=== PATIENT | female | born 1960 | race Caucasian/White ===

== ENCOUNTER 2022-08-25 05:13 | Inpatient (IN) | payer MEDICARE, OTHER ==
[2022-08-25] MEDS ORDERED: ALBUTEROL NEBULIZED 2.5 MG/3 ML INHALATION STA (05:40)
[2022-08-25 05:53] LABS: Basophils % (A) 0 %; Eosinophils % (A) 0 %; HCT 38.2 % (34.0-46.0); HGB 12.4 gm/dL (11.4-16.0); Lymphocytes # (A) 1.9 k/uL (1.0-4.8); Lymphocytes % (A) 23 %; MCH 27.3 pg (25.0-35.0); MCHC 32.4 g/dL (31.0-37.0); MCV 84.4 fL (80.0-100.0); Mean Platelet Volume 7.6; Monocytes # (A) 0.5 k/uL (0-1.0); Monocytes % (A) 7 %; Neutrophils # (A) 5.5 k/uL (1.3-7.7); Neutrophils % (A) 67 %; Platelet Count 181 k/uL (150-450); RBC 4.53 m/uL (3.80-5.40); RDW 15.6 % (11.5-15.5); WBC 8.3 k/uL (3.8-10.6)
[2022-08-25] MEDS ORDERED: ACETAMINOPHEN SUPPOSITORY 650 MG SUPP RECTAL STA (05:53)
[2022-08-25 06:09] LABS: Partial Thromboplastin Time 23.2 sec (22.0-30.0)
[2022-08-25 06:15] LABS: ALT 22 U/L (4-34); AST 26 U/L (14-36); African American GFR (CKD) >90 (>60 ml/min/1.73 sqM); Albumin 4.1 g/dL (3.5-5.0); Alkaline Phosphatase 82 U/L (38-126); Anion Gap 11 mmol/L; Blood Urea Nitrogen 15 mg/dL (7-17); Calcium 8.9 mg/dL (8.4-10.2); Carbon Dioxide 27 mmol/L (22-30); Chloride 97 mmol/L (98-107); Glucose 91 mg/dL (74-99); Non-African American GFR(CKD) >90 (>60 ml/min/1.73 sqM); Potassium 4.5 mmol/L (3.5-5.1); Sodium 135 mmol/L (137-145); Total Bilirubin 0.4 mg/dL (0.2-1.3); Total Protein 7.2 g/dL (6.3-8.2)
[2022-08-25 06:26] LABS: Appearance,Urine Clear (Clear); Bacteria,Urine Rare /hpf; Bilirubin,Urine Negative (Negative); Blood,Urine Small (Negative); Color,Urine Yellow; Glucose,Urine (UA) Negative (Negative); Ketones,Urine Negative (Negative); Leukocyte Esterase,Urine Small (Negative); Mucus,Urine Rare /hpf; Nitrite,Urine Negative (Negative); PH, Urine 7.5 (5.0-8.0); Protein,Urine Trace (Negative); RBC,Urine 8 /hpf (0-5); Specific Gravity,Urine 1.015 (1.001-1.035); Squamous Epithelial Cell,Urine <1 /hpf (0-4); WBC,Urine 16 /hpf (0-5)
[2022-08-25] MEDS ORDERED: SODIUM CHLORIDE 0.9% 1,000 ML IV ONE ×2 (06:28→18:11)
[2022-08-25] MEDS ORDERED: SODIUM CHLORIDE 0.9% 1,000 ML IV STA (06:28)
--- NOTE | 2022-08-25 06:55 | ED ---
SOB HPI - General Source: EMS Mode of arrival: EMS Limitations: altered mental status - History of Present Illness MD Complaint: shortness of breath, cough -: days(s) <Jorge Uribe - Last Filed: 08/25/22 07:42> <Alec Moffett - Last Filed: 08/25/22 08:05> - General Chief Complaint: Shortness of Breath Stated Complaint: Difficulty Breathing Time Seen by Provider: 08/25/22 05:39 - History of Present Illness Initial Comments: this patient is 61-year-old woman resident of [facility], who presents to have evaluation for shortness of breath and fever. the patient started having symptoms days ago. the patient had been seen yesterday at [facility] for shortness of breath, was given steroid, and went home. She has had worsening of symptoms over the course of the night and into this morning. The patient is not able to give any history due to developmental delay. (Jorge Uribe) - Related Data Allergies Allergy/AdvReac Type Severity Reaction Status Date / Time clavulanic acid Allergy Unknown Unknown Verified 08/25/22 05:25 [From Augmentin] Corticosteroids Allergy Unknown Unknown Verified 08/25/22 05:26 (Glucocorticoids) guaifenesin Allergy Unknown Unknown Verified 08/25/22 05:28 amoxicillin [From Augmentin] Allergy Unknown Verified 08/25/22 05:24 azithromycin Allergy Unknown Verified 08/25/22 05:25 ciprofloxacin [From Ciprodex] Allergy Unknown Verified 08/25/22 05:29 dexamethasone [From Ciprodex] Allergy Unknown Verified 08/25/22 05:29 dextromethorphan Allergy Unknown Verified 08/25/22 05:27 divalproex sodium Allergy Unknown Verified 08/25/22 05:26 [From Depakote] ibuprofen [From Motrin] Allergy Unknown Verified 08/25/22 05:28 Review of Systems ROS Other: All systems not noted in ROS Statement are negative. Limitations: ROS unobtainable due to patients medical condition Respiratory: Reports: cough, dyspnea <Jorge Uribe - Last Filed: 08/25/22 07:42> ROS Other: All systems not noted in ROS Statement are negative. <Alec Moffett - Last Filed: 08/25/22 08:05> ROS Statement: Those systems with pertinent positive or pertinent negative responses have been documented in the HPI. Past Medical History History of Any Multi-Drug Resistant Organisms: None Reported Smoking Status: Never smoker Past Alcohol Use History: None Reported Past Drug Use History: None Reported <Jorge Uribe - Last Filed: 08/25/22 07:42> General Exam Limitations: altered mental status General appearance: alert Head exam: Present: atraumatic, normocephalic Eye exam: Present: normal appearance ENT exam: Present: mucous membranes dry Neck exam: Present: normal inspection, full ROM Respiratory exam: Present: respiratory distress, wheezes, rhonchi. Absent: rales, stridor, accessory muscle use, decreased breath sounds, prolonged exp iratory Cardiovascular Exam: Present: normal rhythm, tachycardia, normal heart sounds. Absent: systolic murmur, diastolic murmur, rubs, gallop GI/Abdominal exam: Present: soft. Absent: distended, tenderness, guarding, rebound, rigid, mass Extremities exam: Present: normal inspection, normal capillary refill. Absent: pedal edema, calf tenderness Back exam: Present: normal inspection. Absent: CVA tenderness (R), CVA tenderness (L) Neurological exam: Present: alert Skin exam: Present: warm, dry, intact, normal color. Absent: rash <Jorge Uribe - Last Filed: 08/25/22 07:42> Course <Alec Moffett - Last Filed: 08/25/22 08:05> Vital Signs 08/25/22 08/25/22 08/25/22 05:15 05:52 06:01 Temperature 103.2 F H Pulse Rate 103 H 101 H 100 Respiratory 28 H Rate Blood Pressure 111/80 O2 Sat by Pulse 97 Oximetry - Reevaluation(s) Reevaluation #1: 08/25/22 08:05 Patient does qualify for sepsis criteria diagnosed at 8 AM. Patient has COPD. Blood culture and lactic acid and IV antibiotics arty been ordered. Admission orders written. (Alec Moffett) Medical Decision Making - Lab Data Result diagrams: 08/25/22 05:43 08/25/22 05:42 - EKG Data -: EKG Interpreted by Ia EKG shows normal: sinus rhythm, axis (normal), intervals (normal), QRS complexes (normal) Rate: tachycardia Interpretation: nonspecific ST-T wave changes (rate 105 bpm) <Jorge Uribe - Last Filed: 08/25/22 07:42> - Lab Data Result diagrams: 08/25/22 05:43 08/25/22 05:42 <Alec Moffett - Last Filed: 08/25/22 08:05> - Medical Decision Making Was pt. sent in by a medical professional or institution (, [facility], S[employer]LE [employer]CH[employer], urgent care, hospital, or jail...) When possible be specific @ -Patient sent from [facility] Did you speak to anyone other than the patient for history (EMS, parent, family, police, friend...)? What history was obtained from this source @ -Dermatology Physician is present to help provide history including history of COPD Did you review nursing and triage notes (agree or disagree)? Why? @ -I reviewed and agree with nursing and triage notes Were old charts reviewed (outside hosp., previous admission, EMS record, old EKG, old radiological studies, urgent care reports/EKG's, jail records)? Report findings @ -No old charts were reviewed Differential Diagnosis (chest pain, altered mental status, abdominal pain women, abdominal pain men, vaginal bleeding, weakness, fever, dyspnea, syncope, headache, dizziness, GI bleed, back pain, seizure, CVA, palpatations, mental health)? @ -Differential Dyspnea: Coronary syndrome, arrhythmia, tamponade, asthma, COPD, pulmonary embolism, pneumonia, pneumothorax, pulmonary effusion, anaphylaxis, diabetic ketoacidosis, flailed chest, pulmonary contusion, diaphragmatic rupture, anemia, neuromuscular, this is not meant to be an all-inclusive list. EKG interpreted by me (3pts min.). @ -As above X-rays interpreted by me (1pt min.). @ -Chest x-ray shows no acute process CT interpreted by me (1pt min.). @ -None done U/S interpreted by me (1pt. min.). @ -None done What testing was considered but not performed or refused? (CT, X-rays, U/S, labs)? Why? @ -D-dimer has been added What meds were considered but not given or refused? Why? @ -None Did you discuss the management of the patient with other professionals (professionals i.e. , [facility], S[employer]LE MECH[employer]IC, lab, RT, psych nurse, social security benefits interviewer, sprinkler worker, teacher, commanding officer homicide squad, case advocate)? Give summary @ -Case discussed with practitioner Deysi, who will admit, rule out Maury, who admits for Dr. Blandon. Was smoking cessation discussed for >3mins.? @ -No Was critical care preformed (if so, how long)? @ -No Were there social determinants of health that impacted care today? How? (Homelessness, low income, unemployed, alcoholism, drug addiction, transportation, low edu. Level, literacy, decrease access to med. care, fdc, rehab)? @ -No Was there de-escalation of care discussed even if they declined (Discuss DNR or withdrawal of care, Hospice)? DNR status @ -No What co-morbidities impacted this encounter? (DM, HTN, Smoking, COPD, CAD, Cance r, CVA, ARF, Chemo, Hep., AIDS, mental health diagnosis, sleep apnea, morbid obesity)? @ -COPD history Was patient admitted / discharged? Hospital course, mention meds given and route, prescriptions, significant lab abnormalities, going to OR and other pertinent info. @ -Patient reevaluated by myself, Dr. Moffett. 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 Patient is resting comfortably in bed. Heart rate 98. Patient was placed on monitor to monitor for tachycardia. Patient still has wheezing and rhonchi. Patient will be admitted with pulmonary consult. IV antibiotics have arty been started Undiagnosed new problem with uncertain prognosis? @ -No Drug Therapy requiring intensive monitoring for toxicity (Heparin, Nitro, Insulin, Cardizem)? @ -No Were any procedures done? @ -No Diagnosis/symptom? @ -Acute COPD Acute, or Chronic, or Acute on Chronic? @ -Acute Uncomplicated (without systemic symptoms) or Complicated (systemic symptoms)? @ -default Side effects of treatment? @ -No Exacerbation, Progression, or Severe Exacerbation? @ -No Poses a threat to life or bodily function? How? (Chest pain, [place], [place], pneumonia, PE, COPD, DKA, ARF, appy, cholecystitis, CVA, Diverticulitis, Homicidal, Suicidal, threat to staff... and all critical care pts) @ -No (Alec Moffett) - Lab Data Lab Results 08/25/22 08/25/22 08/25/22 Range/Units 05:42 05:42 05:42 WBC (3.8-10.6) k/uL RBC (3.80-5.40) m/uL Hgb (11.4-16.0) gm/dL Hct (34.0-46.0) % MCV (80.0-100.0) fL MCH (25.0-35.0) pg MCHC (31.0-37.0) g/dL RDW (11.5-15.5) % Plt Count (150-450) k/uL MPV Neutrophils % % Lymphocytes % % Monocytes % % Eosinophils % % Basophils % % Neutrophils # (1.3-7.7) k/uL Lymphocytes # (1.0-4.8) k/uL Monocytes # (0-1.0) k/uL Eosinophils # (0-0.7) k/uL Basophils # (0-0.2) k/uL PT (9.0-12.0) sec INR (<1.2) APTT (22.0-30.0) sec Sodium 135 L (137-145) mmol/L Potassium 4.5 (3.5-5.1) mmol/L Chloride 97 L (98-107) mmol/L Carbon Dioxide 27 (22-30) mmol/L Anion Gap 11 mmol/L BUN 15 (7-17) mg/dL Creatinine 0.59 (0.52-1.04) mg/dL Est GFR (CKD-EPI)AfAm >90 (>60 ml/min/1.73 sqM) Est GFR (CKD-EPI)NonAf >90 (>60 ml/min/1.73 sqM) Glucose 91 (74-99) mg/dL Plasma Lactic Acid Josh 1.8 (0.7-2.0) mmol/L Calcium 8.9 (8.4-10.2) mg/dL Total Bilirubin 0.4 (0.2-1.3) mg/dL AST 26 (14-36) U/L ALT 22 (4-34) U/L Alkaline Phosphatase 82 (38-126) U/L Troponin I <0.012 (0.000-0.034) ng/mL Total Protein 7.2 (6.3-8.2) g/dL Albumin 4.1 (3.5-5.0) g/dL Urine Color Urine Appearance (Clear) Urine pH (5.0-8.0) Ur Specific [place] (1.001-1.035) Urine Protein (Negative) Urine Glucose (UA) (Negative) Urine Ketones (Negative) Urine Blood (Negative) Urine Nitrite (Negative) Urine Bilirubin (Negative) Urine Urobilinogen (<2.0) mg/dL Ur Leukocyte Esterase (Negative) Urine RBC (0-5) /hpf Urine WBC (0-5) /hpf Ur Squamous Epith Cells (0-4) /hpf Urine Bacteria (None) /hpf Urine Mucus (None) /hpf Influenza Type A (PCR) (Not Detectd) Influenza Type B (PCR) (Not Detectd) RSV (PCR) (Not Detectd) SARS-CoV-2 (PCR) (Not Detectd) 08/25/22 08/25/22 08/25/22 Range/Units 05:43 05:43 05:43 WBC 8.3 (3.8-10.6) k/uL RBC 4.53 (3.80-5.40) m/uL Hgb 12.4 (11.4-16.0) gm/dL Hct 38.2 (34.0-46.0) % MCV 84.4 (80.0-100.0) fL MCH 27.3 (25.0-35.0) pg MCHC 32.4 (31.0-37.0) g/dL RDW 15.6 H (11.5-15.5) % Plt Count 181 (150-450) k/uL MPV 7.6 Neutrophils % 67 % Lymphocytes % 23 % Monocytes % 7 % Eosinophils % 0 % Basophils % 0 % Neutrophils # 5.5 (1.3-7.7) k/uL Lymphocytes # 1.9 (1.0-4.8) k/uL Monocytes # 0.5 (0-1.0) k/uL Eosinophils # 0.0 (0-0.7) k/uL Basophils # 0.0 (0-0.2) k/uL PT 11.0 (9.0-12.0) sec INR 1.0 (<1.2) APTT 23.2 (22.0-30.0) sec Sodium (137-145) mmol/L Potassium (3.5-5.1) mmol/L Chloride (98-107) mmol/L Carbon Dioxide (22-30) mmol/L Anion Gap mmol/L BUN (7-17) mg/dL Creatinine (0.52-1.04) mg/dL Est GFR (CKD-EPI)AfAm (>60 ml/min/1.73 sqM) Est GFR (CKD-EPI)NonAf (>60 ml/min/1.73 sqM) Glucose (74-99) mg/dL Plasma Lactic Acid Josh (0.7-2.0) mmol/L Calcium (8.4-10.2) mg/dL Total Bilirubin (0.2-1.3) mg/dL AST (14-36) U/L ALT (4-34) U/L Alkaline Phosphatase (38-126) U/L Troponin I (0.000-0.034) ng/mL Total Protein (6.3-8.2) g/dL Albumin (3.5-5.0) g/dL Urine Color Urine Appearance (Clear) Urine pH (5.0-8.0) Ur Specific [place] (1.001-1.035) Urine Protein (Negative) Urine Glucose (UA) (Negative) Urine Ketones (Negative) Urine Blood (Negative) Urine Nitrite (Negative) Urine Bilirubin (Negative) Urine Urobilinogen (<2.0) mg/dL Ur Leukocyte Esterase (Negative) Urine RBC (0-5) /hpf Urine WBC (0-5) /hpf Ur Squamous Epith Cells (0-4) /hpf Urine Bacteria (None) /hpf Urine Mucus (None) /hpf Influenza Type A (PCR) Not Detected (Not Detectd) Influenza Type B (PCR) Not Detected (Not Detectd) RSV (PCR) Not Detected (Not Detectd) SARS-CoV-2 (PCR) Not Detected (Not Detectd) 08/25/22 Range/Units 06:11 WBC (3.8-10.6) k/uL RBC (3.80-5.40) m/uL Hgb (11.4-16.0) gm/dL Hct (34.0-46.0) % MCV (80.0-100.0) fL MCH (25.0-35.0) pg MCHC (31.0-37.0) g/dL RDW (11.5-15.5) % Plt Count (150-450) k/uL MPV Neutrophils % % Lymphocytes % % Monocytes % % Eosinophils % % Basophils % % Neutrophils # (1.3-7.7) k/uL Lymphocytes # (1.0-4.8) k/uL Monocytes # (0-1.0) k/uL Eosinophils # (0-0.7) k/uL Basophils # (0-0.2) k/uL PT (9.0-12.0) sec INR (<1.2) APTT (22.0-30.0) sec Sodium (137-145) mmol/L Potassium (3.5-5.1) mmol/L Chloride (98-107) mmol/L Carbon Dioxide (22-30) mmol/L Anion Gap mmol/L BUN (7-17) mg/dL Creatinine (0.52-1.04) mg/dL Est GFR (CKD-EPI)AfAm (>60 ml/min/1.73 sqM) Est GFR (CKD-EPI)NonAf (>60 ml/min/1.73 sqM) Glucose (74-99) mg/dL Plasma Lactic Acid Josh (0.7-2.0) mmol/L Calcium (8.4-10.2) mg/dL Total Bilirubin (0.2-1.3) mg/dL AST (14-36) U/L ALT (4-34) U/L Alkaline Phosphatase (38-126) U/L Troponin I (0.000-0.034) ng/mL Total Protein (6.3-8.2) g/dL Albumin (3.5-5.0) g/dL Urine Color Yellow Urine Appearance Clear (Clear) Urine pH 7.5 (5.0-8.0) Ur Specific [place] 1.015 (1.001-1.035) Urine Protein Trace H (Negative) Urine Glucose (UA) Negative (Negative) Urine Ketones Negative (Negative) Urine Blood Small H (Negative) Urine Nitrite Negative (Negative) Urine Bilirubin Negative (Negative) Urine Urobilinogen 2.0 (<2.0) mg/dL Ur Leukocyte Esterase Small H (Negative) Urine RBC 8 H (0-5) /hpf Urine WBC 16 H (0-5) /hpf Ur Squamous Epith Cells <1 (0-4) /hpf Urine Bacteria Rare H (None) /hpf Urine Mucus Rare H (None) /hpf Influenza Type A (PCR) (Not Detectd) Influenza Type B (PCR) (Not Detectd) RSV (PCR) (Not Detectd) SARS-CoV-2 (PCR) (Not Detectd) Critical Care Time Critical Care Time: Yes Total Critical Care Time: 31 <Alec Moffett - Last Filed: 08/25/22 08:05> Disposition <Jorge Uribe - Last Filed: 08/25/22 07:42> Is patient prescribed a controlled substance at d/c from ED?: No Time of Disposition: 08:05 <Alec Moffett - Last Filed: 08/25/22 08:05> Clinical Impression: Sepsis, Acute exacerbation of chronic obstructive pulmonary disease Disposition: ADMITTED IP TO THIS HOSP Referrals: Prince Blandon MD [Primary Care Provider] - 1-2 days
--- NOTE | 2022-08-25 07:49 | XR ---
EXAMINATION TYPE: XR chest 1V portable DATE OF EXAM: 08/25/2022 6:01 AM COMPARISON: None TECHNIQUE: XR chest 1V portable Portable AP radiograph of the chest. CLINICAL INDICATION:Female, 61 years old with history of difficulty breathing; FINDINGS: Patient is rotated which limits evaluation. Lungs/Pleura: There is no evidence of pleural effusion, focal consolidation, or pneumothorax. Pulmonary vascularity: Unremarkable. Heart/mediastinum: Cardiomediastinal silhouette is unremarkable. Musculoskeletal: No acute osseous pathology. IMPRESSION: No acute cardiopulmonary disease/process.
[2022-08-25] MEDS ORDERED: PNEUMONIA PROTOCOL UTILIZED 1 EACH MISC PO PRN (08:06)
[2022-08-25] MEDS ORDERED: ALBUTEROL NEBULIZED 2.5 MG/3 ML INHALATION PRN (08:06)
--- NOTE | 2022-08-25 08:52 | CT ---
EXAMINATION TYPE: CT angio chest CT DLP: 846.8 mGycm, Automated exposure control for dose reduction was used. DATE OF EXAM: 08/25/2022 8:43 AM COMPARISON: Chest radiograph from same day. CLINICAL INDICATION:Female, 61 years old with history of dyspnea; Elevated d-dimer, difficulty breath ing TECHNIQUE/CONTRAST: CTA scan of the thorax is performed with IV Contrast, patient injected with 100 mL of Isovue 370, pul monary embolism protocol. MIP images are created and reviewed. FINDINGS: Respiratory motion limits evaluation. Pulmonary Artery: There is no evidence for a central filling defect within the pulmonary vasculature to suggest acute pulmonary embolism. Limited evaluation of the segmental and subsegmental branches se condary to bolus timing. The pulmonary artery is of normal size. Lungs/Pleura: No evidence of focal consolidation, pleural effusion or pneumothorax. Airway: Large airways are patent. Heart: Heart is within normal limits for size.. No pericardial effusion. Vasculature: No evidence of aortic aneurysm. Mediastinum: No gross evidence of adenopathy. Musculoskeletal: No acute osseous abnormalities. Prominent Schmorl's node involving the superior endp late of the L1 vertebral body. Soft Tissues: Unremarkable. Lower neck: No significant findings. Upper Abdomen: No significant findings. IMPRESSION: Limited examination due to respiratory motion. No evidence of central pulmonary embolism. Limited evaluation of the segmental and subsegmental branc hes. Cannot exclude pulmonary embolism in these regions.
[2022-08-25] MEDS ORDERED: SODIUM CHLORIDE 0.9% 500 ML 500 ML IV ONE (09:02)
[2022-08-25] MEDS: SODIUM CHLORIDE 0.9% 1,000 ML IV SCH ×2 (09:11→17:29)
[2022-08-25 09:44] LABS: Glucose,Whole Blood 142 mg/dL (70-110)
[2022-08-25 10:32] LABS: ABG PH 7.39 (7.35-7.45); Allen Test Performed? Yes
[2022-08-25 10:33] LABS: ABG HCO3 24 mmol/L (21-25); ABG PCO2 40 mmHg (35-45); ABG PO2 102 mmHg (83-108); ABG TCO2 25 mmol/L (19-24)
--- NOTE | 2022-08-25 10:33 | P.CNPUL ---
History of Present Illness Consult date: 08/25/22 Chief complaint: altered mental status History of present illness: This is a 61-year-old female patient with obvious developmental delay. Transf erred from [facility] to our emergency department because of difficulty breathing. The patient was seen in the ED by Dr. Jorge Karimi and Dr. Josh Moffett. Unfortunately, that efforts in obtaining more information on this patient with extremely limited as the patient was nonverbal and noncomm unicative. The patient resides in a custodial and she started having the shortness of breath and fever. This started a few days back. The patient was seen in the emergency department at [facility] and following that the patient got transferred to us. In the emergency, the patient was given a chest x-ray and a CT angiogram. There was no evidence of any acute pulmonary abnormalities. There was no evidence of any pulmonary embolism. The blood work showed a WBC count of 8.3 with a hemoglobin 12.4 and a platelet count of 181. BUN was 15 with a creatinine of 0.59 his sodium level is at 135. Blood sugars at 91. The patient was admitted to the medical floor. I was asked to transfer this patient to the ICU as the patient become more unresponsive and more tachypneic. I reviewed her medical records. I also communicated with a person in charge of the custodial. She has a prolonged history of multiple medical problems and comorbidities. She has profound mental retardation and she has cerebral palsy. She has history of seizure disorder. She has chronic anxiety. She has been incontinent and she has also had issues with expressive and receptive aphasia and language disorder. She has issues with chronic hypertension, osteoporosis and chronic anemia. I also reviewed her medication which is quite extensive. No history of any chronic lung disease. No seizure activity at the custodial. She was having fever and the temperature was as high as 103 at the emergency department. No reported head trauma. No reported falls. No injuries. I came to find other that she patient is prone to have UTIs. A UA has been done in our emergency department. The white cell count is at 16 with a RBC of 8 and there is some trace protein. Covid 19 testing was negative. Influenza screen was negative. RSV screen was negative. Troponins were negative. LFTs were within normal limits. Blood sugars at 142. Past Medical History Additional Past Medical History / Comment(s): Cerebral palsy, profound mentored Foundation, seizure disorder, expressive and receptive language disorder, chronic anxiety, chronic anemia, osteoporosis, urinary incontinence, previous episodes of UTI. History of Any Multi-Drug Resistant Organisms: None Reported Additional Past Surgical History / Comment(s): Foot surgery/leg surgery and the patient has a pain in her right leg/ankle area, I am aware of any other surgeries at this point in time Smoking Status: Never smoker Past Alcohol Use History: None Reported Past Drug Use History: None Reported Medications and Allergies Home Medications Medication Instructions Recorded Confirmed Type ARIPiprazole [Abilify] 20 mg PO DAILY@0700 08/25/22 08/25/22 History Acetaminophen Tab [Tylenol Tab] 1,000 mg PO Q4-6H PRN 08/25/22 08/25/22 History Albuterol Sulfate [Ventolin HFA] 2 puff INHALATION RT-Q6H PRN 08/25/22 08/25/22 History Azelastine HCl [Optivar 0.05% 1 drop BOTH EYES DAILY PRN 08/25/22 08/25/22 History Ophth Soln] Budesonide [Pulmicort] 0.5 mg INHALATION RT-BID@0700,199908/25/22 08/25/22 History Calcium Carbonate [Calcium] 600 mg PO BID@0700,199908/25/22 08/25/22 History Chlorhexidine Gluconate [Peridex] 15 ml PO BID@0700,199908/25/22 08/25/22 History Docusate [Colace] 100 mg PO BID@0700,199908/25/22 08/25/22 History Escitalopram [Lexapro] 30 mg PO DAILY@0700 08/25/22 08/25/22 History Furosemide [Lasix] 20 mg PO BID@0600,1600 08/25/22 08/25/22 History Ipratropium-Albuterol Nebulize 3 ml INHALATION RT-QID PRN 08/25/22 08/25/22 History [Duoneb 0.5 mg-3 mg/3 ml Soln] Lactulose 20 gm PO TID@0700,1599,199908/25/22 08/25/22 History Linaclotide [Linzess] 145 mcg PO AC-BRKFST@0600 08/25/22 08/25/22 History Magnesium Hydroxide [Milk of 2,400 mg PO DAILY PRN 08/25/22 08/25/22 History Magnesia] Menthol-Zinc Oxide Oint 1 applic TOPICAL DAILY PRN 08/25/22 08/25/22 History [Calmoseptine Ointment] Metoprolol Tartrate [Lopressor] 25 mg PO BID@0700,199908/25/22 08/25/22 History Montelukast [Singulair] 10 mg PO HS@199908/25/22 08/25/22 History Na Phos,M-B/Na Phos,Di-Ba [Fleet 133 ml RECTAL DAILY PRN 08/25/22 08/25/22 History Adult] OXcarbazepine [Trileptal] 300 mg PO BID@0700,1600 08/25/22 08/25/22 History OXcarbazepine [Trileptal] 600 mg PO HS@199908/25/22 08/25/22 History Omeprazole [PriLOSEC] 20 mg PO HS@199908/25/22 08/25/22 History Potassium Chloride ER [K-Dur 20] 20 meq PO TID@0700,1600,199908/25/22 08/25/22 History QUEtiapine [SEROquel] 400 mg PO HS@199908/25/22 08/25/22 History Sennosides [Senokot] 8.6 mg PO HS@1999 PRN 08/25/22 08/25/22 History Zonisamide [Zonegran] 100 mg PO TID@0700,1600,199908/25/22 08/25/22 History bisacodyL [Dulcolax] 10 mg RECTAL DAILY PRN 08/25/22 08/25/22 History diazePAM [Valium] 5 mg PO TID@0700,1600,199908/25/22 08/25/22 History polyethylene glycoL 3350 [Miralax] 17 gm PO DAILY 08/25/22 08/25/22 History polyethylene glycoL 3350 [Miralax] 17 gm PO Q2D@1700 08/25/22 08/25/22 History Allergies Allergy/AdvReac Type Severity Reaction Status Date / Time clavulanic acid Allergy Unknown Unknown Verified 08/25/22 08:12 [From Augmentin] Corticosteroids Allergy Unknown Unknown Verified 08/25/22 08:12 (Glucocorticoids) guaifenesin Allergy Unknown Unknown Verified 08/25/22 08:12 amoxicillin [From Augmentin] Allergy Unknown Verified 08/25/22 08:12 azithromycin Allergy Unknown Verified 08/25/22 08:12 ciprofloxacin [From Ciprodex] Allergy Unknown Verified 08/25/22 08:12 dexamethasone [From Ciprodex] Allergy Unknown Verified 08/25/22 08:12 dextromethorphan Allergy Unknown Verified 08/25/22 08:12 divalproex sodium Allergy Unknown Verified 08/25/22 08:12 [From Depakote] ibuprofen [From Motrin] Allergy Unknown Verified 08/25/22 08:12 beta lactamase Allergy Unknown Uncoded 08/25/22 08:12 Physical Exam Vitals: Vital Signs Temp Pulse Resp BP Pulse Ox FiO2 08/25/22 10:14 35 08/25/22 09:45 35 08/25/22 08:22 103.2 F H 98 22 100/68 97 08/25/22 06:01 100 08/25/22 05:52 101 H 08/25/22 05:15 103.2 F H 103 H 28 H 111/80 97 Intake and Output 08/24/22 08/25/22 08/25/22 22:59 06:59 14:59 Other: Weight 102.058 kg Patient is currently somewhat restless and agitated. She is on a BiPAP at pressure 14/6 with an FiO2 of 30%. She is nonverbal. She is obese with a body mass index of 41.2 Head exam was generally normal. There was no scleral icterus or corneal arcus. Mucous membranes were moist. Neck was supple and without jugular venous distension, thyromegaly, or carotid bruits. Carotids were easily palpable bilaterally. There was no adenopathy. Lungs sounds are diminished bilaterally and scattered rhonchi heard throughout the lung velazquez bilaterally. Cardiac exam revealed the PMI to be normally situated and sized. The rhythm was regular and no extrasystoles were noted during several minutes of auscultation. The first and second heart sounds were normal and physiologic splitting of the second heart sound was noted. There were no murmurs, rubs, clicks, or gallops. Abdominal exam revealed normal bowel sounds. The abdomen was soft, non-tender, and without masses, organomegaly, or appreciable enlargement of the abdominal aorta. Chronic contractures in lower extremities bilaterally. Trace edema. No cyanosis or clubbing. Examination of the skin revealed no evidence of significant rashes, suspicious appearing nevi or other concerning lesions. Neurologic exam is quite limited. The patient has a positive cough and a gag. Pupils are round 3-4 mm in size reactive to light. She does not follow any commands at this point in time. She is moving all 4 extremities without limitation. There is obvious motor weakness lower extremities bilaterally along with chronic contractures. Reflexes are diminished at the present. No Babinski or clonus. No significant neck stiffness at this point in time. Results - Laboratory Findings CBC and BMP: 08/25/22 05:43 08/25/22 05:42 PT/INR, D-dimer PT 11.0 sec (9.0-12.0) 08/25/22 05:43 INR 1.0 (<1.2) 08/25/22 05:43 D-Dimer 0.66 mg/L FEU (<0.60) H 08/25/22 05:43 Abnormal lab findings: Abnormal Labs 08/25/22 08/25/22 08/25/22 05:42 05:43 05:43 RDW 15.6 H D-Dimer 0.66 H Sodium 135 L Chloride 97 L POC Glucose (mg/dL) Urine Protein Urine Blood Ur Leukocyte Esterase Urine RBC Urine WBC Urine Bacteria Urine Mucus 08/25/22 08/25/22 06:11 09:43 RDW D-Dimer Sodium Chloride POC Glucose (mg/dL) 142 H Urine Protein Trace H Urine Blood Small H Ur Leukocyte Esterase Small H Urine RBC 8 H Urine WBC 16 H Urine Bacteria Rare H Urine Mucus Rare H - Diagnostic Findings Chest x-ray: image reviewed CT scan - chest: image reviewed Assessment and Plan Plan: Acute febrile illness, currently under investigation. Rule out underlying infection/sepsis. Exact source is not clear. Acute on chronic encephalopathy. The patient has worsening in the mentation and she seems to be quite unresponsive at this point in time. Could be related to underlying infection. We are going to screen this patient for systemic infec tions. 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 Acute shortness of breath, currently on BiPAP at a pressures of 14/6 cm of water. The patient had a chest x-ray and a CT angiogram in the emergency department showing no acute abnormalities. Profound mental retardation Cerebral palsy Seizure disorder Expressive and receptive aphasia Chronic anxiety Hypertension Osteoporosis Urinary incontinence Previous episodes of UTI [facility] resident Plan Start the patient on Precedex to maintain synchrony with the BiPAP Haldol 1 mg every 2-3 hours as needed for agitation, the patient has been maintained on high dose Seroquel an outpatient basis and she has issues with agitation Continue BiPAP at the same setting at pressure 14/6 cm of water with an FiO2 of 35% Obtain a blood gas bronchodilators with DuoNeb neb blotchiness around the clock Blood cultures 2, urine cultures Start the patient on Zosyn and vancomycin combination Check a pro-calcitonin level Obtain neurology consultation Unable to take the Trileptal at this point in time. We'll discuss with neurology for any alternatives She was unable to take any other oral medications for now. We'll try to transi tion her medications to IV form IV fluids of normal saline at the rate of 75 mL an hour DNR/DNI CODE STATUS Heparin subcu portably prophylaxis Kuhn catheter Condition is critical and we'll continue to follow
[2022-08-25] MEDS ORDERED: HALOPERIDOL LACTATE 5 MG/ML 1 ML VIAL IVP PRN (10:35)
[2022-08-25] MEDS ORDERED: VANCOMYCIN IV PER PHARMACY 1 EACH MISC MISCELLANE PRN (10:38)
[2022-08-25] MEDS: DEXMEDETOMIDINE/0.9% NACL(PMX) 400 MCG in EMPTY BAG 1 BAG IV SCH ×2 (11:09→20:24)
[2022-08-25] MEDS: VANCOMYCIN 1,750 MG in SODIUM CHLORIDE 0.9% 500 ML 500 ML IVPB SCH ×2 (12:19→21:58)
[2022-08-25] MEDS: ALBUTEROL NEBULIZED 2.5 MG/3 ML INHALATION SCH ×3 (12:31→19:49)
--- NOTE | 2022-08-25 13:03 | P.CNNES ---
History of Present Illness Consult date: 08/25/22 Requesting physician: Demetrius Mckeon Reason for Consult: neuro medications, sepsis r/o neuro component History of Present Illness: This is a 61-year-old woman with history of developmental delay, cerebral palsy, seizures, limited language was transferred from [facility] to emergency because of difficulty breathing. Some of the history is obtained from the patient's caregivers from her nursing facility as well as the medical record that. Per her caregivers is seems to the patient was having the summer history distress at nursing facility and had coughing episode. They stated possibly there was a "a bug going around in the nursing facility". They deny dad that the patient had a recent seizure-like activity. They denied the patient is having any nausea vomiting to their knowledge and they could not tell me about fevers. For her seizures she is on Trileptal and on Zonegran. Per the medical record she is on Trileptal 300 mg 1 tablet twice a day and a 600 mg dose at night. She is on Zonegran 100 mg 1 tablet 3 times a day. She follows up with a neurologist as an outpatient (Dr. Zaragoza). Patient is on numerous medications. Some of the workup during his hospital visit consisted of: T-max is 103.2 Fahrenheit White blood cell is 8.3 thousand which is considered normal. Calcium, BUN and creatinine, AST ALT are within normal limits Serum glucose is 91. 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 History of Any Multi-Drug Resistant Organisms: None Reported Date of last positivie culture/infection: 2006 MDRO Source:: stool Additional Past Surgical History / Comment(s): Foot surgery/leg surgery and the patient has a pain in her right leg/ankle area, I am aware of any other surgeries at this point in time Past Anesthesia/Blood Transfusion Reactions: No Reported Reaction Smoking Status: Never smoker - Past Family History Father Family Medical History: Congestive Heart Failure (CHF) Brother(s) Family Medical History: Congestive Heart Failure (CHF) Medications and Allergies Home Medications Medication Instructions Recorded Confirmed Type ARIPiprazole [Abilify] 20 mg PO DAILY@0700 08/25/22 08/25/22 History Acetaminophen Tab [Tylenol Tab] 1,000 mg PO Q4-6H PRN 08/25/22 08/25/22 History Albuterol Sulfate [Ventolin HFA] 2 puff INHALATION RT-Q6H PRN 08/25/22 08/25/22 History Azelastine HCl [Optivar 0.05% 1 drop BOTH EYES DAILY PRN 08/25/22 08/25/22 History Ophth Soln] Budesonide [Pulmicort] 0.5 mg INHALATION RT-BID@0700,199908/25/22 08/25/22 History Calcium Carbonate [Calcium] 600 mg PO BID@0700,199908/25/22 08/25/22 History Chlorhexidine Gluconate [Peridex] 15 ml PO BID@0700,199908/25/22 08/25/22 History Docusate [Colace] 100 mg PO BID@0700,199908/25/22 08/25/22 History Escitalopram [Lexapro] 30 mg PO DAILY@0700 08/25/22 08/25/22 History Furosemide [Lasix] 20 mg PO BID@0600,1600 08/25/22 08/25/22 History Ipratropium-Albuterol Nebulize 3 ml INHALATION RT-QID PRN 08/25/22 08/25/22 History [Duoneb 0.5 mg-3 mg/3 ml Soln] Lactulose 20 gm PO TID@0700,1599,199908/25/22 08/25/22 History Linaclotide [Linzess] 145 mcg PO AC-BRKFST@0608/25/22 08/25/22 History Magnesium Hydroxide [Milk of 2,400 mg PO DAILY PRN 08/25/22 08/25/22 History Magnesia] Menthol-Zinc Oxide Oint 1 applic TOPICAL DAILY PRN 08/25/22 08/25/22 History [Calmoseptine Ointment] Metoprolol Tartrate [Lopressor] 25 mg PO BID@0700,199908/25/22 08/25/22 History Montelukast [Singulair] 10 mg PO HS@199908/25/22 08/25/22 History Na Phos,M-B/Na Phos,Di-Ba [Fleet 133 ml RECTAL DAILY PRN 08/25/22 08/25/22 History Adult] OXcarbazepine [Trileptal] 300 mg PO BID@0700,1600 08/25/22 08/25/22 History OXcarbazepine [Trileptal] 600 mg PO HS@199908/25/22 08/25/22 History Omeprazole [PriLOSEC] 20 mg PO HS@199908/25/22 08/25/22 History Potassium Chloride ER [K-Dur 20] 20 meq PO TID@0700,1600,199908/25/22 08/25/22 History QUEtiapine [SEROquel] 400 mg PO HS@199908/25/22 08/25/22 History Sennosides [Senokot] 8.6 mg PO HS@1999 PRN 08/25/22 08/25/22 History Zonisamide [Zonegran] 100 mg PO TID@0700,1600,199908/25/22 08/25/22 History bisacodyL [Dulcolax] 10 mg RECTAL DAILY PRN 08/25/22 08/25/22 History diazePAM [Valium] 5 mg PO TID@0700,1600,199908/25/22 08/25/22 History polyethylene glycoL 3350 [Miralax] 17 gm PO DAILY 08/25/22 08/25/22 History polyethylene glycoL 3350 [Miralax] 17 gm PO Q2D@1700 08/25/22 08/25/22 History Allergies Allergy/AdvReac Type Severity Reaction Status Date / Time clavulanic acid Allergy Unknown Unknown Verified 08/25/22 08:12 [From Augmentin] Corticosteroids Allergy Unknown Unknown Verified 08/25/22 08:12 (Glucocorticoids) guaifenesin Allergy Unknown Unknown Verified 08/25/22 08:12 amoxicillin [From Augmentin] Allergy Unknown Verified 08/25/22 08:12 azithromycin Allergy Unknown Verified 08/25/22 08:12 ciprofloxacin [From Ciprodex] Allergy Unknown Verified 08/25/22 08:12 dexamethasone [From Ciprodex] Allergy Unknown Verified 08/25/22 08:12 dextromethorphan Allergy Unknown Verified 08/25/22 08:12 divalproex sodium Allergy Unknown Verified 08/25/22 08:12 [From Depakote] ibuprofen [From Motrin] Allergy Unknown Verified 08/25/22 08:12 beta lactamase Allergy Unknown Uncoded 08/25/22 08:12 Physical Examination - Vital Signs Vital Signs: Vital Signs Temp Pulse Resp BP Pulse Ox FiO2 08/25/22 10:14 35 08/25/22 09:45 35 08/25/22 08:22 103.2 F H 98 22 100/68 97 08/25/22 06:01 100 08/25/22 05:52 101 H 08/25/22 05:15 103.2 F H 103 H 28 H 111/80 97 Intake and Output 08/24/22 08/25/22 08/25/22 22:59 06:59 14:59 Intake Total 300 Output Total 850 Balance -550 Intake: IV 300 Sodium Chloride 0.9% 1, 300 000 ml @ 100 mls/hr IV . Q10H NICOLÁS Rx#:[id number] Output: Urine 850 Other: Weight 102.058 kg 102.058 kg GENERAL: The patient is lying in bed and is not in acute distress. CHEST: Unable to assess. LUNG: Is on BiPAP. ABDOMEN/GI:Unable to assess. NEUROLOGICAL: Unable to assess because of cooperation. Visually when she was taken off of the breathing mask at patient opening her eyes and got agitated. No facial weakness. She's able to move bilateral upper extremity above gravity but the strength is limited. Overall the examination is very limited because of poor cooperation and un derlying neurological the frontal delay Results - Laboratory Findings CBC and BMP: 08/25/22 05:43 08/25/22 05:42 Abnormal Lab Findings: Abnormal Labs 08/25/22 08/25/22 08/25/22 05:42 05:43 05:43 RDW 15.6 H D-Dimer 0.66 H ABG Total CO2 ABG O2 Saturation Sodium 135 L Chloride 97 L POC Glucose (mg/dL) Urine Protein Urine Blood Ur Leukocyte Esterase Urine RBC Urine WBC Urine Bacteria Urine Mucus 08/25/22 08/25/22 08/25/22 06:11 09:43 10:21 RDW D-Dimer ABG Total CO2 25 H ABG O2 Saturation 98.0 H Sodium Chloride POC Glucose (mg/dL) 142 H Urine Protein Trace H Urine Blood Small H Ur Leukocyte Esterase Small H Urine RBC 8 H Urine WBC 16 H Urine Bacteria Rare H Urine Mucus Rare H Assessment and Plan Assessment: Acute febrile illness unknown exact source. Rule out underlying DOOR FRAME ASSEMBLER MACHINE infection if unknown source of infection Encephalopathy due to underlying infection Acute shortness of breath Developmental delay Cerebral palsy History of seizure Language impairments the patient has a component of both expressive and receptive aphasia Urinary incontinence Hypertension Osteoporosis Chronic anxiety Plan: I started the patient on Keppra IV 1000 mg every 12 hours since the patient is not swallowing and once she is able to swallow resume her home medication of Trileptal on Zonegran. She will not cooperate for a lumbar puncture and EEG since very agitated on e xamination. I spoke with the primary team regarding coverage for underlying DOOR FRAME ASSEMBLER MACHINE infection but primary stated that to hold until ID evaluates her. She is on ceftriaxone 2 g every 24 hour, vancomycin, Zosyn. We'll defer modification of medication ICU/primary and ID team. Again, if unknown source of infection consider meningeal encephalitis coverage with ceftriaxone 2 g every 12 hours and acyclovir. We'll defer the rest of medical management to the primary team The plan was discussed with the primary team and the patient's nurse as well as her caregivers. Thank you for the Consultation Duarte Stokes M.D. Time with Patient: Greater than 30
[2022-08-25] MEDS ORDERED: IOPAMIDOL CONTRAST (ORAL USE) VIAL PO PRN (14:02)
--- NOTE | 2022-08-25 14:17 | P.GSCN ---
History of Present Illness Consult date: 08/25/22 History of present illness: CHIEF COMPLAINT: Altered mental status Reason for consult: Abdominal distention HISTORY OF PRESENT ILLNESS: This is a 61-year-old female with a known history of developmental delay and cerebral palsy. She lives at a residential. History was obtained from the nurse and patient's chart. Apparently on Wednesday she had been at [facility] due to abdominal distention at that time they had done a computed tomography scan that had shown a rectal bolus. Patient was given milk of magnesia and enema and had stool. She was able to be discharged home. She then went to [facility] due to shortness of breath and fevers starting on Wednesday. She was discharged with steroids. However apparently continued to worsen symptomatically. Patient came into [facility] she did require a transfer to the ICU. She's had a fever as high as 103.2 she's currently requiring BiPAP. She's on antibiotics and steroids. She is noted to the hospitalist sepsis. There is questionable UTI. Cultures have been obtained. Surgical service consulted for abdominal distention. PAST MEDICAL HISTORY: Cerebral palsy, profound mentored Foundation, seizure disorder, expressive and receptive language disorder, chronic anxiety, chronic anemia, osteoporosis, urinary incontinence, previous episodes of UTI. PAST SURGICAL HISTORY: See below MEDICATIONS: See below ALLERGIES: See below SOCIAL HISTORY: No illicit drug use. REVIEW OF SYSTEMS: CONSTITUTIONAL: Denies fever or chills. HEENT: Denies blurred vision, vision changes, or eye pain. Denies hemoptysis CARDIOVASCULAR: Denies chest pain or pressure. RESPIRATORY: No shortness of breath. GASTROINTESTINAL: See HPI for pertinent findings HEMATOLOGIC: Denies bleeding disorders. GENITOURINARY: Denies any blood in urine or increased urinary frequency. SKIN: Denies pruitis. Denies rash. PHYSICAL EXAM: VITAL SIGNS: Reviewed GENERAL: Well-developed. No acute distress ABDOMEN: Soft. Distended. Tympanic NEUROLOGIC: Lethargic LABORATORY DATA: WBC is 8.3 Hgb 12.4 platelets 181 INR 1.0 d-dimer 0.66 Sodium is 135 potassium 4.5 creatinine 0.59 LFTs normal troponin negative Urinalysis small leukocyte esterase WBC 16 and bacteria rare Influenza, RSV and COVID-19 not detected IMAGING: CTA chest Limited examination due to respiratory motion. No evidence of central PE. Limited evaluation of the segmental and subsegmental branches. Cannot e xclude pulmonary embolism in these regions. ASSESSMENT: 1. Abdominal distention 2. Recent hospitalization at [facility] with rectal bolus and constipation 3. Sepsis PLAN: -Check computed tomography scan abdomen and pelvis with IV contrast regarding abdominal distention -Continue ICU management -Continue antibiotics -Keep patient nothing by mouth -Continue IV fluid -Further recommendations forthcoming per surgeon Physician Sausage Tier note has been reviewed by physician. Signing provider agrees with the documented findings, assessment, and plan of care. Past Medical History Additional Past Medical History / Comment(s): Cerebral palsy, profound mentored Foundation, seizure disorder, expressive and receptive language disorder, chronic anxiety, chronic anemia, osteoporosis, urinary incontinence, previous episodes of UTI. History of Any Multi-Drug Resistant Organisms: None Reported Year Discovered:: 2006 MDRO Source:: stool Additional Past Surgical History / Comment(s): Foot surgery/leg surgery and the patient has a pain in her right leg/ankle area, I am aware of any other surgeries at this point in time Past Anesthesia/Blood Transfusion Reactions: No Reported Reaction Smoking Status: Never smoker - Past Family History Father Family Medical History: Congestive Heart Failure (CHF) Brother(s) Family Medical History: Congestive Heart Failure (CHF) Medications and Allergies Home Medications Medication Instructions Recorded Confirmed Type ARIPiprazole [Abilify] 20 mg PO DAILY@0700 08/25/22 08/25/22 History Acetaminophen Tab [Tylenol Tab] 1,000 mg PO Q4-6H PRN 08/25/22 08/25/22 History Albuterol Sulfate [Ventolin HFA] 2 puff INHALATION RT-Q6H PRN 08/25/22 08/25/22 History Azelastine HCl [Optivar 0.05% 1 drop BOTH EYES DAILY PRN 08/25/22 08/25/22 History Ophth Soln] Budesonide [Pulmicort] 0.5 mg INHALATION RT-BID@699,199908/25/22 08/25/22 History Calcium Carbonate [Calcium] 600 mg PO BID@00,199908/25/22 08/25/22 History Chlorhexidine Gluconate [Peridex] 15 ml PO BID@0700,199908/25/22 08/25/22 History Docusate [Colace] 100 mg PO BID@07,199908/25/22 08/25/22 History Escitalopram [Lexapro] 30 mg PO DAILY@00 08/25/22 08/25/22 History Furosemide [Lasix] 20 mg PO BID@0600,1600 08/25/22 08/25/22 History Ipratropium-Albuterol Nebulize 3 ml INHALATION RT-QID PRN 08/25/22 08/25/22 History [Duoneb 0.5 mg-3 mg/3 ml Soln] Lactulose 20 gm PO TID@0700,1599,199908/25/22 08/25/22 History Linaclotide [Linzess] 145 mcg PO AC-BRKFST@59908/25/22 08/25/22 History Magnesium Hydroxide [Milk of 2,400 mg PO DAILY PRN 08/25/22 08/25/22 History Magnesia] Menthol-Zinc Oxide Oint 1 applic TOPICAL DAILY PRN 08/25/22 08/25/22 History [Calmoseptine Ointment] Metoprolol Tartrate [Lopressor] 25 mg PO BID@07,199908/25/22 08/25/22 History Montelukast [Singulair] 10 mg PO HS@199908/25/22 08/25/22 History Na Phos,M-B/Na Phos,Di-Ba [Fleet 133 ml RECTAL DAILY PRN 08/25/22 08/25/22 Hist ory Adult] OXcarbazepine [Trileptal] 300 mg PO BID@0700,159908/25/22 08/25/22 History OXcarbazepine [Trileptal] 600 mg PO HS@199908/25/22 08/25/22 History Omeprazole [PriLOSEC] 20 mg PO HS@199908/25/22 08/25/22 History Potassium Chloride ER [K-Dur 20] 20 meq PO TID@00,1599,199908/25/22 08/25/22 History QUEtiapine [SEROquel] 400 mg PO HS@199908/25/22 08/25/22 History Sennosides [Senokot] 8.6 mg PO HS@1999 PRN 08/25/22 08/25/22 History Zonisamide [Zonegran] 100 mg PO TID@00,1599,199908/25/22 08/25/22 History bisacodyL [Dulcolax] 10 mg RECTAL DAILY PRN 08/25/22 08/25/22 History diazePAM [Valium] 5 mg PO TID@0700,1600,199908/25/22 08/25/22 History polyethylene glycoL 3350 [Miralax] 17 gm PO DAILY 08/25/22 08/25/22 History polyethylene glycoL 3350 [Miralax] 17 gm PO Q2D@1700 08/25/22 08/25/22 History Allergies Allergy/AdvReac Type Severity Reaction Status Date / Time clavulanic acid Allergy Unknown Unknown Verified 08/25/22 08:12 [From Augmentin] Corticosteroids Allergy Unknown Unknown Verified 08/25/22 08:12 (Glucocorticoids) guaifenesin Allergy Unknown Unknown Verified 08/25/22 08:12 amoxicillin [From Augmentin] Allergy Unknown Verified 08/25/22 08:12 azithromycin Allergy Unknown Verified 08/25/22 08:12 ciprofloxacin [From Ciprodex] Allergy Unknown Verified 08/25/22 08:12 dexamethasone [From Ciprodex] Allergy Unknown Verified 08/25/22 08:12 dextromethorphan Allergy Unknown Verified 08/25/22 08:12 divalproex sodium Allergy Unknown Verified 08/25/22 08:12 [From Depakote] ibuprofen [From Motrin] Allergy Unknown Verified 08/25/22 08:12 beta lactamase Allergy Unknown Uncoded 08/25/22 08:12 Surgical - Exam Vital Signs Temp Pulse Resp BP Pulse Ox 103.2 F H 103 H 28 H 111/80 97 08/25/22 05:15 08/25/22 05:15 08/25/22 05:15 08/25/22 05:15 08/25/22 05:15 Results - Labs 08/25/22 05:43 08/25/22 05:42 Abnormal Lab Results - Last 24 Hours (Table) 08/25/22 08/25/22 08/25/22 Range/Units 05:42 05:43 05:43 RDW 15.6 H (11.5-15.5) % D-Dimer 0.66 H (<0.60) mg/L FEU ABG Total CO2 (19-24) mmol/L ABG O2 Saturation (94-97) % Sodium 135 L (137-145) mmol/L Chloride 97 L (98-107) mmol/L POC Glucose (mg/dL) (70-110) mg/dL Urine Protein (Negative) Urine Blood (Negative) Ur Leukocyte Esterase (Negative) Urine RBC (0-5) /hpf Urine WBC (0-5) /hpf Urine Bacteria (None) /hpf Urine Mucus (None) /hpf 08/25/22 08/25/22 08/25/22 Range/Units 06:11 09:43 10:21 RDW (11.5-15.5) % D-Dimer (<0.60) mg/L FEU ABG Total CO2 25 H (19-24) mmol/L ABG O2 Saturation 98.0 H (94-97) % Sodium (137-145) mmol/L Chloride (98-107) mmol/L POC Glucose (mg/dL) 142 H (70-110) mg/dL Urine Protein Trace H (Negative) Urine Blood Small H (Negative) Ur Leukocyte Esterase Small H (Negative) Urine RBC 8 H (0-5) /hpf Urine WBC 16 H (0-5) /hpf Urine Bacteria Rare H (None) /hpf Urine Mucus Rare H (None) /hpf Diabetes panel 08/25/22 Range/Units 05:42 Sodium 135 L (137-145) mmol/L Potassium 4.5 (3.5-5.1) mmol/L Chloride 97 L (98-107) mmol/L Carbon Dioxide 27 (22-30) mmol/L BUN 15 (7-17) mg/dL Creatinine 0.59 (0.52-1.04) mg/dL Glucose 91 (74-99) mg/dL Calcium 8.9 (8.4-10.2) mg/dL AST 26 (14-36) U/L ALT 22 (4-34) U/L Alkaline Phosphatase 82 (38-126) U/L Total Protein 7.2 (6.3-8.2) g/dL Albumin 4.1 (3.5-5.0) g/dL Calcium panel 08/25/22 Range/Units 05:42 Calcium 8.9 (8.4-10.2) mg/dL Albumin 4.1 (3.5-5.0) g/dL Pituitary panel 08/25/22 Range/Units 05:42 Sodium 135 L (137-145) mmol/L Potassium 4.5 (3.5-5.1) mmol/L Chloride 97 L (98-107) mmol/L Carbon Dioxide 27 (22-30) mmol/L BUN 15 (7-17) mg/dL Creatinine 0.59 (0.52-1.04) mg/dL Glucose 91 (74-99) mg/dL Calcium 8.9 (8.4-10.2) mg/dL Adrenal panel 08/25/22 Range/Units 05:42 Sodium 135 L (137-145) mmol/L Potassium 4.5 (3.5-5.1) mmol/L Chloride 97 L (98-107) mmol/L Carbon Dioxide 27 (22-30) mmol/L BUN 15 (7-17) mg/dL Creatinine 0.59 (0.52-1.04) mg/dL Glucose 91 (74-99) mg/dL Calcium 8.9 (8.4-10.2) mg/dL Total Bilirubin 0.4 (0.2-1.3) mg/dL AST 26 (14-36) U/L ALT 22 (4-34) U/L Alkaline Phosphatase 82 (38-126) U/L Total Protein 7.2 (6.3-8.2) g/dL Albumin 4.1 (3.5-5.0) g/dL
[2022-08-25] MEDS: levETIRAcetam IV 500 MG/5 ML VIAL IVP SCH ×2 (14:28→21:58)
[2022-08-25] MEDS: HEPARIN SODIUM,PORCINE/PF 5,000 UNIT/0.5 ML SYRINGE SQ SCH ×2 (14:30→21:58)
[2022-08-25] MEDS ORDERED: PIPERACILLIN-TAZOBACTAM 3.375 GM in SODIUM CHLORIDE 0.9% 100 ML IVPB SCH (16:00)
[2022-08-25] MEDS: IPRATROPIUM-ALBUTEROL 3 ML NEB INHALATION PRN (16:22)
[2022-08-25] MEDS: CEFEPIME 2 GM in SODIUM CHLORIDE 0.9% 100 ML IVPB SCH (17:23)
[2022-08-25] MEDS: metroNIDAZOLE-NS PMX 500 MG in SALINE 1 100ML.BAG IVPB SCH (17:24)
[2022-08-25 19:14] LABS: Glucose,Whole Blood 113 mg/dL (70-110)
--- NOTE | 2022-08-25 20:27 | P.CONS ---
History of Present Illness - Reason for Consult Consult date: 08/25/22 - History of Present Illness Patient is a 61-year-old female with a past medical history negative for cerebral palsy seizure disorder history of urine incontinence and UTI patient was transferred from [facility] for evaluation of difficulty in breathing apparently the patient was recently admitted and [facility] apparently the patient did have some fecal retention patient stabilized and got discharged and now is present to the hospital increasing shortness of breath patient was noticed to be hypoxic requiring a BiPAP patient on presentation to this hospital did have a fever of 103.2 F patient was tachycardic however patient did have a normal white count D-dimer was mildly elevated kidney function was normal liver enzymes are normal urine has been mildly positive influenza RSV and COVID testing was negative patient did have a chest x-ray no acute cardiopulmonary disease process CT angiogram of the chest no evidence of central pulmonary embolism some segmental and subsegmental a telectasis patient received a dose of Rocephin in the ER subsequently has been started on vancomycin and Zosyn admitted to the ICU on BiPAP patient is a hemodynamically stable not requiring pressors. The nursing staff with a history of penicillin allergy infectious he was consulted for further management most information has been obtained from review the chart talking to nursing staff as the patient was unable to provide any history Past Medical History Additional Past Medical History / Comment(s): Cerebral palsy, profound mentored Foundation, seizure disorder, expressive and receptive language disorder, chronic anxiety, chronic anemia, osteoporosis, urinary incontinence, previous episodes of UTI. History of Any Multi-Drug Resistant Organisms: None Reported Year Discovered:: 2006 MDRO Source:: stool Additional Past Surgical History / Comment(s): Foot surgery/leg surgery and the patient has a pain in her right leg/ankle area, I am aware of any other surgeries at this point in time Past Anesthesia/Blood Transfusion Reactions: No Reported Reaction Smoking Status: Never smoker - Past Family History Father Family Medical History: Congestive Heart Failure (CHF) Brother(s) Family Medical History: Congestive Heart Failure (CHF) Medications and Allergies Home Medications Medication Instructions Recorded Confirmed Type ARIPiprazole [Abilify] 20 mg PO DAILY@0700 08/25/22 08/25/22 History Acetaminophen Tab [Tylenol Tab] 1,000 mg PO Q4-6H PRN 08/25/22 08/25/22 History Albuterol Sulfate [Ventolin HFA] 2 puff INHALATION RT-Q6H PRN 08/25/22 08/25/22 History Azelastine HCl [Optivar 0.05% 1 drop BOTH EYES DAILY PRN 08/25/22 08/25/22 History Ophth Soln] Budesonide [Pulmicort] 0.5 mg INHALATION RT-BID@0700,199908/25/22 08/25/22 History Calcium Carbonate [Calcium] 600 mg PO BID@0700,199908/25/22 08/25/22 History Chlorhexidine Gluconate [Peridex] 15 ml PO BID@0700,199908/25/22 08/25/22 History Docusate [Colace] 100 mg PO BID@0700,199908/25/22 08/25/22 History Escitalopram [Lexapro] 30 mg PO DAILY@0700 08/25/22 08/25/22 History Furosemide [Lasix] 20 mg PO BID@0600,1600 08/25/22 08/25/22 History Ipratropium-Albuterol Nebulize 3 ml INHALATION RT-QID PRN 08/25/22 08/25/22 History [Duoneb 0.5 mg-3 mg/3 ml Soln] Lactulose 20 gm PO TID@0700,1599,199908/25/22 08/25/22 History Linaclotide [Linzess] 145 mcg PO AC-BRKFST@0600 08/25/22 08/25/22 History Magnesium Hydroxide [Milk of 2,400 mg PO DAILY PRN 08/25/22 08/25/22 History Magnesia] Menthol-Zinc Oxide Oint 1 applic TOPICAL DAILY PRN 08/25/22 08/25/22 History [Calmoseptine Ointment] Metoprolol Tartrate [Lopressor] 25 mg PO BID@0700,199908/25/22 08/25/22 History Montelukast [Singulair] 10 mg PO HS@199908/25/22 08/25/22 History Na Phos,M-B/Na Phos,Di-Ba [Fleet 133 ml RECTAL DAILY PRN 08/25/22 08/25/22 History Adult] OXcarbazepine [Trileptal] 300 mg PO BID@0700,1600 08/25/22 08/25/22 History OXcarbazepine [Trileptal] 600 mg PO HS@199908/25/22 08/25/22 History Omeprazole [PriLOSEC] 20 mg PO HS@199908/25/22 08/25/22 History Potassium Chloride ER [K-Dur 20] 20 meq PO TID@0700,1600,199908/25/22 08/25/22 History QUEtiapine [SEROquel] 400 mg PO HS@199908/25/22 08/25/22 History Sennosides [Senokot] 8.6 mg PO HS@1999 PRN 08/25/22 08/25/22 History Zonisamide [Zonegran] 100 mg PO TID@0700,1600,199908/25/22 08/25/22 History bisacodyL [Dulcolax] 10 mg RECTAL DAILY PRN 08/25/22 08/25/22 History diazePAM [Valium] 5 mg PO TID@0700,1600,199908/25/22 08/25/22 History polyethylene glycoL 3350 [Miralax] 17 gm PO DAILY 08/25/22 08/25/22 History polyethylene glycoL 3350 [Miralax] 17 gm PO Q2D@1700 08/25/22 08/25/22 History Allergies Allergy/AdvReac Type Severity Reaction Status Date / Time clavulanic acid Allergy Unknown Unknown Verified 08/25/22 08:12 [From Augmentin] Corticosteroids Allergy Unknown Unknown Verified 08/25/22 08:12 (Glucocorticoids) guaifenesin Allergy Unknown Unknown Verified 08/25/22 08:12 amoxicillin [From Augmentin] Allergy Unknown Verified 08/25/22 08:12 azithromycin Allergy Unknown Verified 08/25/22 08:12 ciprofloxacin [From Ciprodex] Allergy Unknown Verified 08/25/22 08:12 dexamethasone [From Ciprodex] Allergy Unknown Verified 08/25/22 08:12 dextromethorphan Allergy Unknown Verified 08/25/22 08:12 divalproex sodium Allergy Unknown Verified 08/25/22 08:12 [From Depakote] ibuprofen [From Motrin] Allergy Unknown Verified 08/25/22 08:12 beta lactamase Allergy Unknown Uncoded 08/25/22 08:12 Physical Exam Vitals: Vital Signs Temp Pulse Resp BP Pulse Ox FiO2 08/25/22 15:15 59 L 23 94/47 93 L 35 08/25/22 14:15 60 22 93/47 96 35 08/25/22 13:10 64 22 97/50 95 35 08/25/22 12:10 100 F H 68 25 H 103/54 94 L 35 08/25/22 11:10 77 12 123/63 96 35 08/25/22 10:20 97 19 179/89 99 35 08/25/22 10:14 35 08/25/22 09:45 35 08/25/22 08:22 103.2 F H 98 22 100/68 97 08/25/22 06:01 100 08/25/22 05:52 101 H 08/25/22 05:15 103.2 F H 103 H 28 H 111/80 97 Intake and Output 08/25/22 08/25/22 08/25/22 06:59 14:59 22:59 Intake Total 500 Output Total 915 Balance -415 Intake: IV 500 Sodium Chloride 0.9% 1, 500 000 ml @ 100 mls/hr IV . Q10H [facility] Rx#:[id number] Output: Urine 915 Other: Weight 102.058 kg 102.058 kg Results CBC & Chem 7: 08/25/22 05:43 08/25/22 05:42 Labs: Abnormal Lab Results - Last 24 Hours (Table) 08/25/22 08/25/22 08/25/22 Range/Units 05:42 05:43 05:43 RDW 15.6 H (11.5-15.5) % D-Dimer 0.66 H (<0.60) mg/L FEU ABG Total CO2 (19-24) mmol/L ABG O2 Saturation (94-97) % Sodium 135 L (137-145) mmol/L Chloride 97 L (98-107) mmol/L POC Glucose (mg/dL) (70-110) mg/dL Urine Protein (Negative) Urine Blood (Negative) Ur Leukocyte Esterase (Negative) Urine RBC (0-5) /hpf Urine WBC (0-5) /hpf Urine Bacteria (None) /hpf Urine Mucus (None) /hpf 08/25/22 08/25/22 08/25/22 Range/Units 06:11 09:43 10:21 RDW (11.5-15.5) % D-Dimer (<0.60) mg/L FEU ABG Total CO2 25 H (19-24) mmol/L ABG O2 Saturation 98.0 H (94-97) % Sodium (137-145) mmol/L Chloride (98-107) mmol/L POC Glucose (mg/dL) 142 H (70-110) mg/dL Urine Protein Trace H (Negative) Urine Blood Small H (Negative) Ur Leukocyte Esterase Small H (Negative) Urine RBC 8 H (0-5) /hpf Urine WBC 16 H (0-5) /hpf Urine Bacteria Rare H (None) /hpf Urine Mucus Rare H (None) /hpf Assessment and Plan Plan: 1patient presented to hospital with sepsis in this patient with the fever tachycardia source possible abdominal as the patient did have a chest x-ray and CT angiogram of the chest did not show any consolidation urine is mildly positive and evidence of any cellulitis or joint swelling apparently recent admission to the [facility] with bowel issue and will need to cover for gram-negative anaerobes and anaerobes 2-patient with multiple antibiotic allergies that would limit the number of antibiotics safe to use 3-discontinue Zosyn because of penicillin allergy. The patient cefepime and Flagyl 4-repeat CT abdominal pelvis has been planned for tomorrow morning results will be followed We will follow on clinical condition and cultures to further adjust medication if needed Thank you for this consultation we will follow the patient along with you Time with Patient: Greater than 30
[2022-08-25] MEDS: PANTOPRAZOLE 40 MG/10 ML VIAL IVP SCH (21:57)
--- NOTE | 2022-08-25 22:59 | HP ---
HISTORY AND PHYSICAL CHIEF COMPLAINT: Shortness of breath and change in mental status. HISTORY OF PRESENT ILLNESS: This is a 61-year-old female with a past medical history of multiple medical issues including cerebral palsy, history of multiple medical problems, being followed by Dr. Prince Blandon and the patient had 2 caregivers. The caregivers noticed that the patient had some shortness of breath, the patient is confused, the patient was unable to communicate, and the patient came to [facility], found to have features of acute hypoxic respiratory failure. Transferred to ICU, is being closely monitored at this time. The patient was started on broad-spectrum IV antibiotics. The patient is having fever. The patient's chest x-ray showed bilateral lesions, possibly aspiration pneumonia versus viral pneumonia. CT angio is negative for pulmonary embolism. PAST MEDICAL HISTORY: Reviewed include cerebral palsy, profound mental retardation, seizure disorder, rest of the medications and rest of the chart is also reviewed. HOME MEDICATIONS: Reviewed include MiraLAX, doses and rest of the medications reviewed. ALLERGIES: Reviewed include Augmentin, rest of the allergies reviewed. FAMILY HISTORY, SOCIAL HISTORY, REVIEW OF SYSTEMS: Could not be taken because of the patient's change in mental status. PHYSICAL EXAMINATION: VITAL SIGNS: Pulse is 98, blood pressure 100/60, respirations 22, temperature is 103.8. HEENT: Conjunctivae normal. NECK: No jugular venous distention. CARDIOVASCULAR: S1, S2. RESPIRATIONS: Bilateral scattered rhonchi. ABDOMEN: Soft, diffuse distention present. LEGS: No edema, no swelling. NERVOUS SYSTEM: The patient is unresponsive, the patient is on BiPAP. SKIN: No ulcer, rash, bleeding. JOINTS: No active deforming arthropathy. LABS: Reviewed. ASSESSMENT: 1. Possible bilateral pneumonia, possibly aspiration, possibly interstitial viral pneumonia with sepsis. 2. Change in mental status, metabolic encephalopathy, multifactorial. 3. History of cerebral palsy. 4. History of seizure disorder. 5. Abdominal distention, for evaluation. 6. Previous history of multiple UTIs and VRE. 7. No code, no CPR, no vent. RECOMMENDATIONS AND DISCUSSION: This 61-year-old woman presented with multiple complex medical issues, we will monitor the patient closely. I will recommend to initiate cultures and broad-spectrum IV antibiotics. Infectious disease evaluation, BiPAP support, and oxygenation per Pulmonary. Neurology has also been seeing the patient. Recommended parenteral antiseizure medications and I would also recommend a surgical evaluation with acute abdominal series because of abdominal distention. Currently, the patient is extremely sick and we will be monitored in the ICU. Further recommendations to follow. MMTALYAL / IJN: [id number] /
[2022-08-26 00:52] LABS: Glucose,Whole Blood 115 mg/dL (70-110)
[2022-08-26] MEDS: CEFEPIME 2 GM in SODIUM CHLORIDE 0.9% 100 ML IVPB SCH ×3 (01:06→17:10)
[2022-08-26] MEDS: metroNIDAZOLE-NS PMX 500 MG in SALINE 1 100ML.BAG IVPB SCH ×3 (01:07→17:11)
[2022-08-26] MEDS: DEXMEDETOMIDINE/0.9% NACL(PMX) 400 MCG in EMPTY BAG 1 BAG IV SCH ×5 (03:07→23:05)
[2022-08-26] MEDS ORDERED: SODIUM CHLORIDE 0.9% 1,000 ML IV ONE (04:04)
[2022-08-26] MEDS: SODIUM CHLORIDE 0.9% 1,000 ML IV SCH ×2 (05:11→22:21)
[2022-08-26 06:19] LABS: Glucose,Whole Blood 116 mg/dL (70-110)
[2022-08-26 07:00] LABS: Basophils % (A) 0 %; Eosinophils % (A) 1 %; HCT 34.9 % (34.0-46.0); HGB 10.7 gm/dL (11.4-16.0); Hypochromasia Slight; Lymphocytes # (A) 0.7 k/uL (1.0-4.8); Lymphocytes % (A) 19 %; MCH 26.7 pg (25.0-35.0); MCHC 30.6 g/dL (31.0-37.0); MCV 87.4 fL (80.0-100.0); Mean Platelet Volume 7.5; Monocytes # (A) 0.2 k/uL (0-1.0); Monocytes % (A) 5 %; Neutrophils # (A) 2.8 k/uL (1.3-7.7); Neutrophils % (A) 73 %; Platelet Count 132 k/uL (150-450); RBC 3.99 m/uL (3.80-5.40); RDW 15.6 % (11.5-15.5); WBC 3.9 k/uL (3.8-10.6)
--- NOTE | 2022-08-26 07:00 | XR ---
EXAMINATION TYPE: XR chest 1V portable DATE OF EXAM: 08/26/2022 5:19 AM COMPARISON: Chest radiographs from 08/25/2022, CTA chest 08/25/2022 TECHNIQUE: XR chest 1V portable Portable AP radiograph of the chest. CLINICAL INDICATION:Female, 61 years old with history of pneumonia; FINDINGS: Patient is rotated which limits evaluation. Lungs/Pleura: There is no evidence of pleural effusion, focal consolidation, or pneumothorax. Inters titial prominence. Heart/mediastinum: Cardiomediastinal silhouette is prominent in size. Musculoskeletal: No acute osseous pathology. IMPRESSION: Mild interstitial prominence which can be seen with pulmonary vascular congestion.
[2022-08-26 07:21] LABS: ALT 18 U/L (4-34); AST 25 U/L (14-36); African American GFR (CKD) >90 (>60 ml/min/1.73 sqM); Albumin 2.9 g/dL (3.5-5.0); Alkaline Phosphatase 60 U/L (38-126); Anion Gap 8 mmol/L; Blood Urea Nitrogen 14 mg/dL (7-17); Calcium 7.5 mg/dL (8.4-10.2); Carbon Dioxide 19 mmol/L (22-30); Chloride 109 mmol/L (98-107); Glucose 112 mg/dL (74-99); Non-African American GFR(CKD) >90 (>60 ml/min/1.73 sqM); Potassium 3.7 mmol/L (3.5-5.1); Sodium 136 mmol/L (137-145); Total Bilirubin 0.3 mg/dL (0.2-1.3); Total Protein 5.4 g/dL (6.3-8.2)
--- NOTE | 2022-08-26 07:52 | P.PN ---
Subjective Progress Note Date: 08/26/22 This is a 61-year-old female patient with obvious developmental delay. Transferred from [facility] to our emergency department because of difficulty breathing. The patient was seen in the ED by Dr. Jorge Karimi and Dr. Josh Moffett. Unfortunately, that efforts in obtaining more information on this patient with extremely limited as the patient was nonverbal and noncommunicative. The patient resides in a snf and she started having the shortness of breath and fever. This started a few days back. The patient was seen in the emergency department at [facility] and following that the patient got transferred to us. In the emergency, the patient was given a chest x-ray and a CT angiogram. There was no evidence of any acute pulmonary abnormalities. There was no evidence of any pulmonary embolism. The blood work showed a WBC count of 8.3 with a hemoglobin 12.4 and a platelet count of 181. BUN was 15 with a creatinine of 0.59 his sodium level is at 135. Blood sugars at 91. The patient was admitted to the medical floor. I was asked to transfer this patient to the ICU as the patient become more unresponsive and more tachypneic. I reviewed her medical records. I also communicated with a person in charge of the snf. She has a prolonged history of multiple medical problems and comorbidities. She has profound mental retardation and she has cerebral palsy. She has history of seizure disorder. She has chronic anxiety. She has been incontinent and she has also had issues with expressive and receptive aphasia and language disorder. She has issues with chronic hypertension, osteoporosis and chronic anemia. I also reviewed her medication which is quite extensive. No history of any chronic lung disease. No seizure activity at the snf. She was having fever and the temperature was as high as 103 at the emergency department. No reported head trauma. No reported falls. No injuries. I came to find other that she patient is prone to have U TIs. A UA has been done in our emergency department. The white cell count is at 16 with a RBC of 8 and there is some trace protein. Covid 19 testing was negative. Influenza screen was negative. RSV screen was negative. Troponins were negative. LFTs were within normal limits. Blood sugars at 142. On today's evaluation of 08/26/2022, the patient seems to be more stable in terms of her breathing compared to yesterday. She was taken off the BiPAP this morning. Overnight, she was kept on a BiPAP at pressure 14/6 cm of water were notified to 35%. Currently she is taken off the BiPAP and she is only on 2 L of Oxymizer nasal cannula and her pulse ox is 95%. She does not seem to have any labored breathing. As mentioned, she has mental retardation, cerebral palsy, history of seizures and episodic bursts of agitation. She was taken a combination of Seroquel, Lexapro and Valium on outpatient basis. She was also on Trileptal. In terms of her seizure medication, this was switched to Keppra by neurology. The patient is afebrile for now. Cultures are negative. No significant leukocytosis. The patient is covered with accommodation of cefepime and Flagyl and vancomycin per ID recommendations. Hemodynamically stable. No significant tachycardia. Urine output is adequate. The patient is on Precedex which is at the maximal dose of 1.4 mcg/kg/m. At the same time, the patient is on IV fluids with normal saline at the rate of 100 mL an hour.The WBC count is at 3.9 with a hemoglobin of 10.7 and a platelet count of 132. The sodium is at 136, BUN is at 14 with a creatinine of 0.36. Serum bicarbs of 19. LFTs are normal. Cultures are still negative. Pro-calcitonin level is pending. Chest x-rays rotated. Nevertheless, no acute abnormalities are seen on today's chest x-ray. Objective - Vital Signs Vital signs: Vital Signs Temp 97.9 F 08/26/22 04:00 Pulse 53 L 08/26/22 07:00 Resp 16 08/26/22 07:00 BP 165/82 08/26/22 07:00 Pulse Ox 97 08/26/22 07:00 FiO2 35 08/26/22 04:40 Intake & Output 08/25/22 08/26/22 08/26/22 18:59 06:59 18:59 Intake Total 1510 4097.695 120 Output Total 985 450 75 Balance 525 3647.695 45 Weight 102.058 kg 106.3 kg Intake: IV 1510 3900 120 0.9 @ 20 200 20 Cefepime 2 gm In Sodium 100 100 Chloride 0.9% 100 ml @ 25 mls/hr IVPB Q8HR [facility] Rx# :[id number] Sodium Chloride 0.9% 1, 810 1500 100 000 ml @ 100 mls/hr IV . Q10H [facility] Rx#:[id number] Sodium Chloride 0.9% 1, 1500 000 ml @ 999 mls/hr IV . Q1H1M [facility] Rx#:[id number] Vancomycin 1,750 mg In 500 500 Sodium Chloride 0.9% 500 ml 500 ml @ 167 mls/hr IVPB Q12HR [facility] Rx#: [id number] metroNIDAZOLE-NS PMX 500 100 100 mg In Saline 1 100ml.bag @ 100 mls/hr IVPB Q8HR [facility] Rx#:[id number] Intake, IV Titration 197.695 Amount Dexmedetomidine/0.9% NaCl 197.695 (Pmx) 400 mcg In Empty Bag 1 bag @ 0.2 MCG/KG/HR 5.103 mls/hr IV .[id number] [facility] Rx#:[id number] Output: Urine 985 450 75 Other: Voiding Method Indwelling Catheter Indwelling Catheter - Exam Patient is currently somewhat rested and comfortable. Nevertheless, she is having bursts and episodes of agitation.. She is on 2 L of oxygen by nasal cannula She is nonverbal. She is obese with a body mass index of 41.2 Head exam was generally normal. There was no scleral icterus or corneal arcus. Mucous membranes were moist. Neck was supple and without jugular venous distension, thyromegaly, or carotid bruits. Carotids were easily palpable bilaterally. There was no adenopathy. Lungs sounds are diminished bilaterally and scattered rhonchi heard throughout the lung velazquez bilaterally. Cardiac exam revealed the PMI to be normally situated and sized. The rhythm was regular and no extrasystoles were noted during several minutes of auscultation. The first and second heart sounds were normal and physiologic splitting of the second heart sound was noted. There were no murmurs, rubs, clicks, or gallops. Abdominal exam revealed normal bowel sounds. The abdomen was soft, non-tender, and without masses, organomegaly, or appreciable enlargement of the abdominal aorta. Chronic contractures in lower extremities bilaterally. Trace edema. No cyanosis or clubbing. Examination of the skin revealed no evidence of significant rashes, suspicious appearing nevi or other concerning lesions. Neurologic exam is quite limited. The patient has a positive cough and a gag. Pupils are round 3-4 mm in size reactive to light. She does not follow any commands at this point in time. She is moving all 4 extremities without limitation. There is obvious motor weakness lower extremities bilaterally along with chronic contractures. Reflexes are diminished at the present. No Babinski or clonus. No significant neck stiffness at this point in time. - Labs CBC & Chem 7: 08/26/22 06:37 08/26/22 06:37 Labs: Abnormal Lab Results - Last 24 Hours (Table) 08/25/22 08/25/22 08/25/22 Range/Units 05:43 09:43 10:21 Hgb (11.4-16.0) gm/dL MCHC (31.0-37.0) g/dL RDW (11.5-15.5) % Plt Count (150-450) k/uL Lymphocytes # (1.0-4.8) k/uL D-Dimer 0.66 H (<0.60) mg/L FEU ABG Total CO2 25 H (19-24) mmol/L ABG O2 Saturation 98.0 H (94-97) % Sodium (137-145) mmol/L Chloride (98-107) mmol/L Carbon Dioxide (22-30) mmol/L Creatinine (0.52-1.04) mg/dL Glucose (74-99) mg/dL POC Glucose (mg/dL) 142 H (70-110) mg/dL Calcium (8.4-10.2) mg/dL Total Protein (6.3-8.2) g/dL Albumin (3.5-5.0) g/dL 08/25/22 08/26/22 08/26/22 Range/Units 19:12 00:51 06:17 Hgb (11.4-16.0) gm/dL MCHC (31.0-37.0) g/dL RDW (11.5-15.5) % Plt Count (150-450) k/uL Lymphocytes # (1.0-4.8) k/uL D-Dimer (<0.60) mg/L FEU ABG Total CO2 (19-24) mmol/L ABG O2 Saturation (94-97) % Sodium (137-145) mmol/L Chloride (98-107) mmol/L Carbon Dioxide (22-30) mmol/L Creatinine (0.52-1.04) mg/dL Glucose (74-99) mg/dL POC Glucose (mg/dL) 113 H 115 H 116 H (70-110) mg/dL Calcium (8.4-10.2) mg/dL Total Protein (6.3-8.2) g/dL Albumin (3.5-5.0) g/dL 08/26/22 08/26/22 Range/Units 06:37 06:37 Hgb 10.7 L (11.4-16.0) gm/dL MCHC 30.6 L (31.0-37.0) g/dL RDW 15.6 H (11.5-15.5) % Plt Count 132 L (150-450) k/uL Lymphocytes # 0.7 L (1.0-4.8) k/uL D-Dimer (<0.60) mg/L FEU ABG Total CO2 (19-24) mmol/L ABG O2 Saturation (94-97) % Sodium 136 L (137-145) mmol/L Chloride 109 H (98-107) mmol/L Carbon Dioxide 19 L (22-30) mmol/L Creatinine 0.36 L (0.52-1.04) mg/dL Glucose 112 H (74-99) mg/dL POC Glucose (mg/dL) (70-110) mg/dL Calcium 7.5 L (8.4-10.2) mg/dL Total Protein 5.4 L (6.3-8.2) g/dL Albumin 2.9 L (3.5-5.0) g/dL Microbiology - Last 24 Hours (Table) 08/25/22 10:44 Urine Culture - Preliminary Urine,Catheterized Assessment and Plan Plan: Acute febrile illness, currently under investigation. Rule out underlying infection/sepsis. Exact source is not clear. The patient is currently afebrile and she has not spiked any further temperatures since yesterday. White cell count nonelevated and she is covered with broad-spectrum antibiotics including a combination of cefepime vancomycin and Flagyl. Infectious diseases on the case. Awaiting pro-calcitonin level. Cultures are all negative. Acute on chronic encephalopathy. The patient has worsening in the mentation and she seems to be quite unresponsive at this point in time. Could be related to underlying infection. Also consider the possibility of drug reactions as the patient is on a combination of high-dose Lexapro, Seroquel, and Valium. No clear indication of serotonergic syndrome although this is within the differential diagnosis. Acute shortness of breath, currently on 2 L of oxygen by nasal cannula. The patient had a chest x-ray and a CT angiogram in the emergency department showing no acute abnormalities. Profound mental retardation Cerebral palsy Seizure disorder Expressive and receptive aphasia Chronic anxiety Hypertension Osteoporosis Urinary incontinence Previous episodes of UTI correction resident Plan Continue Precedex and gradually wean off the Precedex Introduce Valium 1 mg IV every 8 hours We are going to check her swallow at the later stage and assess the patient's ability to take any oral medications Continue IV fluids Discontinue BiPAP Keep oxygen 2 L/m nasal cannula Awaiting final cultures Awaiting pro-calcitonin level Continue Keppra Continue bronchodilators Continue IV fluids Close monitoring with a sitter at the bedside Consults psychiatry. Neurology input is also appreciated DNR/DNI CODE STATUS Heparin subcu portably prophylaxis Kuhn catheter Condition is critical and we'll continue to follow
[2022-08-26] MEDS: ALBUTEROL NEBULIZED 2.5 MG/3 ML INHALATION SCH ×4 (08:27→19:52)
[2022-08-26] MEDS: HEPARIN SODIUM,PORCINE/PF 5,000 UNIT/0.5 ML SYRINGE SQ SCH ×2 (08:59→22:22)
[2022-08-26] MEDS: levETIRAcetam IV 500 MG/5 ML VIAL IVP SCH ×2 (08:59→23:31)
[2022-08-26] MEDS: PANTOPRAZOLE 40 MG/10 ML VIAL IVP SCH (08:59)
[2022-08-26] MEDS: VANCOMYCIN 1,750 MG in SODIUM CHLORIDE 0.9% 500 ML 500 ML IVPB SCH ×2 (08:59→22:15)
[2022-08-26] MEDS: hydrALAZINE HCL 20 MG/ML 1 ML VIAL IVP PRN ×3 (10:33→21:08)
[2022-08-26] MEDS ORDERED: cloNIDine 0.3 MG/24HR PATCH TRANSDERM SCH (11:00)
--- NOTE | 2022-08-26 11:10 | P.PN ---
Subjective Progress Note Date: 08/26/22 The patient seen at bedside and per the patient's nurse she's about the same. Patient is on IV Precedex but continues to be agitated whenever trying to be examined. According to the nurse she was notified at baseline she is oriented agitated and not cooperative due to her development of delay. No further fevers. Objective - Vital Signs Vital signs: Vital Signs Temp 96.1 F L 08/26/22 09:00 Pulse 59 L 08/26/22 10:00 Resp 16 08/26/22 10:00 BP 168/105 08/26/22 10:00 Pulse Ox 96 08/26/22 10:00 FiO2 35 08/26/22 04:40 Intake & Output 08/25/22 08/26/22 08/26/22 18:59 06:59 18:59 Intake Total 1510 4097.695 731.206 Output Total 985 450 330 Balance 525 3647.695 401.206 Weight 102.058 kg 106.3 kg Intake: IV 1510 3900 652 0.9 @ 20 200 60 Cefepime 2 gm In Sodium 100 100 25 Chloride 0.9% 100 ml @ 25 mls/hr IVPB Q8HR [facility] Rx# :[id number] Sodium Chloride 0.9% 1, 810 1500 300 000 ml @ 100 mls/hr IV . Q10H [facility] Rx#:[id number] Sodium Chloride 0.9% 1, 1500 000 ml @ 999 mls/hr IV . Q1H1M [facility] Rx#:[id number] Vancomycin 1,750 mg In 500 500 167 Sodium Chloride 0.9% 500 ml 500 ml @ 167 mls/hr IVPB Q12HR [facility] Rx#: [id number] metroNIDAZOLE-NS PMX 500 100 100 100 mg In Saline 1 100ml.bag @ 100 mls/hr IVPB Q8HR [facility] Rx#:[id number] Intake, IV Titration 197.695 79.206 Amount Dexmedetomidine/0.9% NaCl 197.695 79.206 (Pmx) 400 mcg In Empty Bag 1 bag @ 0.2 MCG/KG/HR 5.103 mls/hr IV .[id number] [facility] Rx#:[id number] Output: Urine 985 450 330 Other: Voiding Method Indwelling Catheter Indwelling Catheter - Exam Neuro: Limited because of the patient's the cooperation. Patient is also on IV Precedex 1.4mg/kg/hr. Patient is not verbalizing or following commands. She gets very agitated whenever attempting to examine her. Pupils are round and she tracks throughout the room. No facial weakness She's able to move upper and lower on her own but has the hand restraints because she gets so agitated. She is moving bilateral lower extremity spontaneously. Some of the workup during his hospital visit consisted of: T-max is 103.2 Fahrenheit--resolved White blood cell is 8.3 thousand which is considered normal. Calcium, BUN and creatinine, AST ALT are within normal limits Serum glucose is 91. - Labs CBC & Chem 7: 08/26/22 06:37 08/26/22 06:37 Labs: Abnormal Lab Results - Last 24 Hours (Table) 08/25/22 08/26/22 08/26/22 Range/Units 19:12 00:51 06:17 Hgb (11.4-16.0) gm/dL MCHC (31.0-37.0) g/dL RDW (11.5-15.5) % Plt Count (150-450) k/uL Lymphocytes # (1.0-4.8) k/uL Sodium (137-145) mmol/L Chloride (98-107) mmol/L Carbon Dioxide (22-30) mmol/L Creatinine (0.52-1.04) mg/dL Glucose (74-99) mg/dL POC Glucose (mg/dL) 113 H 115 H 116 H (70-110) mg/dL Calcium (8.4-10.2) mg/dL Total Protein (6.3-8.2) g/dL Albumin (3.5-5.0) g/dL 08/26/22 08/26/22 Range/Units 06:37 06:37 Hgb 10.7 L (11.4-16.0) gm/dL MCHC 30.6 L (31.0-37.0) g/dL RDW 15.6 H (11.5-15.5) % Plt Count 132 L (150-450) k/uL Lymphocytes # 0.7 L (1.0-4.8) k/uL Sodium 136 L (137-145) mmol/L Chloride 109 H (98-107) mmol/L Carbon Dioxide 19 L (22-30) mmol/L Creatinine 0.36 L (0.52-1.04) mg/dL Glucose 112 H (74-99) mg/dL POC Glucose (mg/dL) (70-110) mg/dL Calcium 7.5 L (8.4-10.2) mg/dL Total Protein 5.4 L (6.3-8.2) g/dL Albumin 2.9 L (3.5-5.0) g/dL Microbiology - Last 24 Hours (Table) 08/25/22 10:44 Urine Culture - Preliminary Urine,Catheterized Assessment and Plan Assessment: Acute febrile illness unknown exact source. Was febrile but normal wbc, and neck seems supple and I feel low suspicion for [employer] infection--fever resolved. Encephalopathy due to underlying infection Acute shortness of breath Developmental delay Cerebral palsy History of seizure Language impairments the patient has a component of both expressive and receptive aphasia Urinary incontinence Hypertension Osteoporosis Chronic anxiety Plan: On Keppra IV 1000 mg every 12 hours since the patient is not swallowing and once she is able to swallow resume her home medication of Trileptal on Zonegran then discontinue Keppra. She will not cooperate for a lumbar puncture and EEG since very agitated on examination. I.D. team is on board and patient is on ceftriaxone 2 g every 24 hour, vancomycin, Zosyn. Psychiatry is consulted for concern of Serotonin syndrome. I ordered CK level. We'll defer the rest of medical management to the primary team The plan was discussed with her nurse. Time with Patient: Less than 30
[2022-08-26 11:40] LABS: Glucose,Whole Blood 105 mg/dL (70-110)
[2022-08-26] MEDS ORDERED: HALOPERIDOL LACTATE 5 MG/ML 1 ML VIAL IVP STA (12:14)
[2022-08-26] MEDS: ONDANSETRON 4 MG/2 ML VIAL IVP PRN (12:39)
--- NOTE | 2022-08-26 13:27 | P.PN ---
Subjective Progress Note Date: 08/26/22 CHIEF COMPLAINT: Altered mental status and shortness of breath HISTORY OF PRESENT ILLNESS: Patient remains in the ICU. She was off of BiPAP this morning and was placed on 2 L nasal cannula. As the wound has progressed patient has become more agitated and has had worsening shortness of breath and his been restarted on the BiPAP. Her abdomen remains distended but due to her agitation she has not been able to go down for the computed tomography scan of the abdomen. She's had no bowel movements. No vomiting reported. She is still requiring Precedex. Afebrile. WBC is 3.9 Hgb 10.7 platelets 132 sons 136 potassium 3.7 creatinine 0.36 lactic acid 1.8 urine culture negative Patient seen and examined with Dr. Maldonado PHYSICAL EXAM: VITAL SIGNS: Reviewed. GENERAL: Agitated with episodes of shortness of breath ABDOMEN: Soft. distended Nontender. ASSESSMENT: 1. Abdominal distention 2. Recent hospitalization at [facility] with rectal bolus and constipation 3. Febrile illness 4. Shortness of breath 5. History of cerebral palsy PLAN: -Continue ICU management -Continue supportive care -Computed tomography scan abdomen and pelvis currently on hold due to patient's agitation. She cannot lay still enough for testing Physician [employer] note has been reviewed by physician. Signing provider agrees with the documented findings, assessment, and plan of care. Objective - Vital Signs Vital signs: Vital Signs Temp 96.1 F L 08/26/22 09:00 Pulse 66 08/26/22 11:15 Resp 23 08/26/22 11:15 BP 151/75 08/26/22 11:15 Pulse Ox 99 08/26/22 11:15 FiO2 35 08/26/22 04:40 Intake & Output 08/25/22 08/26/22 08/26/22 18:59 06:59 18:59 Intake Total 1510 4097.695 751.206 Output Total 985 450 555 Balance 525 3647.695 196.206 Weight 102.058 kg 106.3 kg Intake: IV 1510 3900 672 0.9 @ 20 200 80 Cefepime 2 gm In Sodium 100 100 25 Chloride 0.9% 100 ml @ 25 mls/hr IVPB Q8HR [facility] Rx# :[id number] Sodium Chloride 0.9% 1, 810 1500 300 000 ml @ 100 mls/hr IV . Q10H [facility] Rx#:[id number] Sodium Chloride 0.9% 1, 1500 000 ml @ 999 mls/hr IV . Q1H1M [facility] Rx#:[id number] Vancomycin 1,750 mg In 500 500 167 Sodium Chloride 0.9% 500 ml 500 ml @ 167 mls/hr IVPB Q12HR [facility] Rx#: [id number] metroNIDAZOLE-NS PMX 500 100 100 100 mg In Saline 1 100ml.bag @ 100 mls/hr IVPB Q8HR [facility] Rx#:[id number] Intake, IV Titration 197.695 79.206 Amount Dexmedetomidine/0.9% NaCl 197.695 79.206 (Pmx) 400 mcg In Empty Bag 1 bag @ 0.2 MCG/KG/HR 5.103 mls/hr IV .[id number] [facility] Rx#:[id number] Output: Urine 985 450 555 Other: Voiding Method Indwelling Catheter Indwelling Catheter Indwelling Catheter - Labs CBC & Chem 7: 08/26/22 06:37 08/26/22 06:37 Labs: Abnormal Lab Results - Last 24 Hours (Table) 08/25/22 08/26/22 08/26/22 Range/Units 19:12 00:51 06:17 Hgb (11.4-16.0) gm/dL MCHC (31.0-37.0) g/dL RDW (11.5-15.5) % Plt Count (150-450) k/uL Lymphocytes # (1.0-4.8) k/uL Sodium (137-145) mmol/L Chloride (98-107) mmol/L Carbon Dioxide (22-30) mmol/L Creatinine (0.52-1.04) mg/dL Glucose (74-99) mg/dL POC Glucose (mg/dL) 113 H 115 H 116 H (70-110) mg/dL Calcium (8.4-10.2) mg/dL Total Protein (6.3-8.2) g/dL Albumin (3.5-5.0) g/dL 08/26/22 08/26/22 Range/Units 06:37 06:37 Hgb 10.7 L (11.4-16.0) gm/dL MCHC 30.6 L (31.0-37.0) g/dL RDW 15.6 H (11.5-15.5) % Plt Count 132 L (150-450) k/uL Lymphocytes # 0.7 L (1.0-4.8) k/uL Sodium 136 L (137-145) mmol/L Chloride 109 H (98-107) mmol/L Carbon Dioxide 19 L (22-30) mmol/L Creatinine 0.36 L (0.52-1.04) mg/dL Glucose 112 H (74-99) mg/dL POC Glucose (mg/dL) (70-110) mg/dL Calcium 7.5 L (8.4-10.2) mg/dL Total Protein 5.4 L (6.3-8.2) g/dL Albumin 2.9 L (3.5-5.0) g/dL Microbiology - Last 24 Hours (Table) 08/25/22 10:44 Urine Culture - Preliminary Urine,Catheterized
[2022-08-26] MEDS: flUPHENAZine 2.5 MG/ML (MDV) 10 ML VIAL IM SCH ×2 (14:05→20:31)
--- NOTE | 2022-08-26 14:34 | P.PN ---
Subjective Progress Note Date: 08/26/22 Principal diagnosis: Sepsis Patient is a 61-year-old female with a past medical history negative for cerebral palsy seizure disorder history of urine incontinence and UTI patient was transferred from [facility] for evaluation of difficulty in breathing apparently the patient was recently admitted and [facility] apparently the patient did have some fecal retention , patient presented with sepsis and concern for possible abdominal source. On today's evaluation that is 08/26/2022, the patient overall fever pattern has improved, currently with an elevated temperature of 99F, patient remains stable and a BiPAP remains to be restless no vomiting or diarrhea has been reported Objective - Vital Signs Vital signs: Vital Signs Temp 99 F 08/26/22 13:00 Pulse 78 08/26/22 13:15 Resp 12 08/26/22 13:15 BP 122/90 08/26/22 13:15 Pulse Ox 95 08/26/22 13:00 FiO2 45 08/26/22 13:00 Intake & Output 08/25/22 08/26/22 08/26/22 18:59 06:59 18:59 Intake Total 1510 4097.695 871.206 Output Total 985 450 780 Balance 525 3647.695 91.206 Weight 102.058 kg 106.3 kg Intake: IV 1510 3900 792 0.9 @ 20 200 100 Cefepime 2 gm In Sodium 100 100 25 Chloride 0.9% 100 ml @ 25 mls/hr IVPB Q8HR [facility] Rx# :[id number] Sodium Chloride 0.9% 1, 810 1500 400 000 ml @ 100 mls/hr IV . Q10H [facility] Rx#:[id number] Sodium Chloride 0.9% 1, 1500 000 ml @ 999 mls/hr IV . Q1H1M [facility] Rx#:[id number] Vancomycin 1,750 mg In 500 500 167 Sodium Chloride 0.9% 500 ml 500 ml @ 167 mls/hr IVPB Q12HR [facility] Rx#: [id number] metroNIDAZOLE-NS PMX 500 100 100 100 mg In Saline 1 100ml.bag @ 100 mls/hr IVPB Q8HR [facility] Rx#:[id number] Intake, IV Titration 197.695 79.206 Amount Dexmedetomidine/0.9% NaCl 197.695 79.206 (Pmx) 400 mcg In Empty Bag 1 bag @ 0.2 MCG/KG/HR 5.103 mls/hr IV .[id number] [facility] Rx#:[id number] Output: Urine 985 450 780 Other: Voiding Method Indwelling Catheter Indwelling Catheter Indwelling Catheter - Exam GENERAL DESCRIPTION: Middle-aged female lying in bed in no distress RESPIRATORY SYSTEM: Unlabored breathing , coarse process bilaterally HEART: S1 S2 regular rate and rhythm , ABDOMEN: Soft , abdominal distention and tenderness EXTREMITIES: No edema feet - Labs CBC & Chem 7: 08/26/22 06:37 08/26/22 06:37 Labs: Abnormal Lab Results - Last 24 Hours (Table) 08/25/22 08/26/22 08/26/22 Range/Units 19:12 00:51 06:17 Hgb (11.4-16.0) gm/dL MCHC (31.0-37.0) g/dL RDW (11.5-15.5) % Plt Count (150-450) k/uL Lymphocytes # (1.0-4.8) k/uL Sodium (137-145) mmol/L Chloride (98-107) mmol/L Carbon Dioxide (22-30) mmol/L Creatinine (0.52-1.04) mg/dL Glucose (74-99) mg/dL POC Glucose (mg/dL) 113 H 115 H 116 H (70-110) mg/dL Calcium (8.4-10.2) mg/dL Total Protein (6.3-8.2) g/dL Albumin (3.5-5.0) g/dL 08/26/22 08/26/22 Range/Units 06:37 06:37 Hgb 10.7 L (11.4-16.0) gm/dL MCHC 30.6 L (31.0-37.0) g/dL RDW 15.6 H (11.5-15.5) % Plt Count 132 L (150-450) k/uL Lymphocytes # 0.7 L (1.0-4.8) k/uL Sodium 136 L (137-145) mmol/L Chloride 109 H (98-107) mmol/L Carbon Dioxide 19 L (22-30) mmol/L Creatinine 0.36 L (0.52-1.04) mg/dL Glucose 112 H (74-99) mg/dL POC Glucose (mg/dL) (70-110) mg/dL Calcium 7.5 L (8.4-10.2) mg/dL Total Protein 5.4 L (6.3-8.2) g/dL Albumin 2.9 L (3.5-5.0) g/dL Microbiology - Last 24 Hours (Table) 08/25/22 10:44 Urine Culture - Final Urine,Catheterized Assessment and Plan (1) Sepsis Current Visit: Yes Status: Acute Code(s): A41.9 - SEPSIS, UNSPECIFIED ORGANISM SNOMED Code(s): 11077511 Plan: 1patient presented to hospital with sepsis in this patient with the fever tachycardia source possible abdominal as the patient did have a chest x-ray and CT angiogram of the chest did not show any consolidation urine is mildly po sitive and evidence of any cellulitis or joint swelling apparently patient did have significant abdominal distention and tenderness likely abdominal source, CT could not be done because of her clinical condition and the patient is very restless and unable to stay still per the nursing staff 2-patient with multiple antibiotic allergies that would limit the number of antibiotics safe to use 3Patient to continue with cefepime and Flagyl, while monitor clinical course closely, prognosis remains to be guarded Time with Patient: Less than 30
--- NOTE | 2022-08-26 19:43 | P.CN ---
Psychiatric Consult - . Consult date: 08/26/22 Consult:: 08/26/22 12:10 IDENTIFYING DATA: This patient is a 61 yo female, hx of developmental delay lives at a half-way. REASON FOR REFERRAL: Psychiatry was consulted for agitation and patient being on multiple psychotropic medications. HISTORY OF PRESENT ILLNESS: The patient presented to the hospital initially on 08/25 with complaints of dyspnea, SOB and fever. she is currently on abilify, lexapro, trileptal and seroquel. she was tranferred [facility] and attempted to be seen today at the bedside by greeting card writer psych evaluation. she has unstable BP and had a bipap on and appeared to struggling to breathe and was in 4 point soft restraints. she appeared to have poor concentration did not follow any commands, poor attention. nurse gave furter details of patients condition. greeting card writer was not able to gather any history from patient as she was not able to communicate. PAST PSYCHIATRIC HISTORY: Patient has a a history of developmental delay according to EMR. she is currently on valium prn and haldol prn. her home meds include abilify, lexapro, trileptal and seroquel along with scheduled valium. patient has never been psychiatrically hospitalizaed on the [facility] according to chart Past medical hx: History of Any Multi-Drug Resistant Organisms: None Reported Smoking Status: Never smoker Past Alcohol Use History: None Reported Past Drug Use History: None Reported ALLERGIES: as per EMR. CHEMICAL DEPENDENCY HISTORY: unable to gather information FAMILY PSYCHIATRIC/SUBSTANCE USE HISTORY: unable to gather SOCIAL HISTORY: unable to gather. patient has a hx of developmental delay and currently in a half-way. MENTAL STATUS EXAM: General Appearance: Patient appears to be overweight, aears to be in significant respiratory distress, stated age is lethargic, not following commands. wearing hospital gown. Behavior: respiratory distress, not following commands. 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 PLAN: -At this time patient DOES NOT meet criteria for inpatient psychiatric admission. -Delirium precautions recommended with patient including - avoiding use of narcotics and DIRECTOR OF BUSINESS CONTINUITY sedatives, limit anticholinergic medications when possible, frequent re-orientation, minimize use of restraints, open window shades during the day and close them at night -Would recommend the following medication changes/additions: start prolixin 2.5mg bid IM for psychosis/delirium. will restart patient on a dose of valium scheduled 5 mg bid IV to prevent/treat withdrawal delirium. increased haldol IVP to 5 mg q6hr prn for agitation. consider switching or decreasing keppra to another AED due to risk of increased agitation from this medication. continue to taper/decrease steroids as this will also increasing confusion/delirium. -Communicated plan to patient's nurse -Will continue to follow along -Please contact with any questions. 08/26/22 19:42
[2022-08-26] MEDS: HALOPERIDOL LACTATE 5 MG/ML 1 ML VIAL IM PRN (19:53)
--- NOTE | 2022-08-26 21:14 | PN ---
PROGRESS NOTE SUBJECTIVE: This is a 61-year-old woman, who was admitted with possible pneumonia, sepsis, and change in mental status, also was considered to have possible serotonin syndrome. The patient is much more alert today but rather combative. The patient has significant history of cerebral palsy previously. Multiple consultants are following the patient closely. Cultures are negative so far. PAST MEDICAL HISTORY: Reviewed. REVIEW OF SYSTEMS: Could not be taken. CURRENT MEDICATIONS: Reviewed include Keppra. Doses and rest of the medications are noted. OBJECTIVE: VITAL SIGNS: Pulse is 59, blood pressure 185/90, respirations 25. HEENT: Conjunctivae are normal. NECK: No jugular venous distention. CARDIOVASCULAR: S1 and S2 muffled. RESPIRATORY: Breath sounds diminished at the bases. Few scattered rhonchi. ABDOMEN: Soft. NERVOUS SYSTEM: Could not be examined completely. Moves all 4 limbs. LABORATORY DATA: Reviewed. ASSESSMENT: 1. Bilateral pneumonia, possibly aspiration, possibly interstitial viral pneumonia with sepsis present on admission. 2. Change in mental status, acute metabolic encephalopathy, multifactorial. 3. History of cerebral palsy. 4. History of seizure disorder. 5. Abdominal distention, for evaluation. 6. Previous history of multiple urinary tract infections and vancomycin-resistant Enterococci. 7. No code, no CPR, no vent. RECOMMENDATIONS: Recommend to continue current medications. Continue symptomatic treatment. The patient is on Flagyl, vancomycin, and cefepime. We will continue to monitor and obtain the cultures. Otherwise, closely follow with multiple consultants. Guarded prognosis. Further recommendations to follow. MMODL / IJN: [id number] /
[2022-08-27] MEDS: CEFEPIME 2 GM in SODIUM CHLORIDE 0.9% 100 ML IVPB SCH ×3 (00:10→16:25)
[2022-08-27] MEDS: metroNIDAZOLE-NS PMX 500 MG in SALINE 1 100ML.BAG IVPB SCH ×3 (00:11→16:39)
[2022-08-27] MEDS: DEXMEDETOMIDINE/0.9% NACL(PMX) 400 MCG in EMPTY BAG 1 BAG IV SCH ×7 (02:19→23:11)
[2022-08-27 04:08] LABS: Basophils % (A) 0 %; Eosinophils % (A) 0 %; HCT 32.8 % (34.0-46.0); HGB 10.4 gm/dL (11.4-16.0); Lymphocytes # (A) 0.6 k/uL (1.0-4.8); Lymphocytes % (A) 13 %; MCH 27.1 pg (25.0-35.0); MCHC 31.8 g/dL (31.0-37.0); Mean Platelet Volume 7.7; Monocytes # (A) 0.3 k/uL (0-1.0); Monocytes % (A) 6 %; Neutrophils # (A) 3.7 k/uL (1.3-7.7); Neutrophils % (A) 78 %; Platelet Count 127 k/uL (150-450); RBC 3.86 m/uL (3.80-5.40); RDW 15.7 % (11.5-15.5); WBC 4.8 k/uL (3.8-10.6)
[2022-08-27 04:29] LABS: ALT 20 U/L (4-34); AST 32 U/L (14-36); African American GFR (CKD) >90 (>60 ml/min/1.73 sqM); Alkaline Phosphatase 64 U/L (38-126); Anion Gap 12 mmol/L; Blood Urea Nitrogen 12 mg/dL (7-17); Calcium 7.8 mg/dL (8.4-10.2); Carbon Dioxide 17 mmol/L (22-30); Chloride 107 mmol/L (98-107); Glucose 86 mg/dL (74-99); Non-African American GFR(CKD) >90 (>60 ml/min/1.73 sqM); Potassium 3.6 mmol/L (3.5-5.1); Sodium 136 mmol/L (137-145); Total Bilirubin 0.3 mg/dL (0.2-1.3); Total Protein 5.4 g/dL (6.3-8.2)
[2022-08-27] MEDS: SODIUM CHLORIDE 0.9% 1,000 ML IV SCH ×2 (05:14→09:12)
[2022-08-27 06:11] LABS: Glucose,Whole Blood 95 mg/dL (70-110)
[2022-08-27] MEDS: POTASSIUM CHLORIDE 10 MEQ in WATER FOR INJECTION 1 100ML.BAG IVPB SCH ×6 (06:50→23:12)
[2022-08-27] MEDS: ALBUTEROL NEBULIZED 2.5 MG/3 ML INHALATION SCH ×4 (07:47→19:49)
--- NOTE | 2022-08-27 08:03 | XR ---
EXAMINATION TYPE: XR chest 1V portable DATE OF EXAM: 08/27/2022 Comparison: 08/26/2022 Clinical History: 61-year-old female with shortness of breath, dyspnea Findings: Patient is rotated towards the right altering the normal cardiac and mediastinal contours. Heart uppe r limits of normal in size. Mild interstitial density remains. Differential density overlying the lef t hemithorax likely due to the patient rotation. No maverick consolidation or pleural effusion. Impression: Similar interstitial prominence, correlate for asthma, bronchitis, or mild pulmonary vascular congest ion.
[2022-08-27] MEDS: PANTOPRAZOLE 40 MG/10 ML VIAL IVP SCH (09:09)
[2022-08-27] MEDS: HEPARIN SODIUM,PORCINE/PF 5,000 UNIT/0.5 ML SYRINGE SQ SCH ×2 (09:09→20:57)
[2022-08-27] MEDS: ONDANSETRON 4 MG/2 ML VIAL IVP PRN (09:11)
[2022-08-27] MEDS: levETIRAcetam IV 500 MG/5 ML VIAL IVP SCH (09:11)
[2022-08-27] MEDS: HALOPERIDOL LACTATE 5 MG/ML 1 ML VIAL IM PRN ×3 (09:11→22:17)
[2022-08-27] MEDS: flUPHENAZine 2.5 MG/ML (MDV) 10 ML VIAL IM SCH ×2 (09:12→16:40)
[2022-08-27] MEDS: VANCOMYCIN 1,750 MG in SODIUM CHLORIDE 0.9% 500 ML 500 ML IVPB SCH ×2 (09:42→21:03)
--- NOTE | 2022-08-27 10:28 | P.PN ---
Subjective Progress Note Date: 08/27/22 This is a 61-year-old female patient with obvious developmental delay. Transferred from [facility] to our emergency department because of difficulty breathing. The patient was seen in the ED by Dr. Jorge Karimi and Dr. Josh Moffett. Unfortunately, that efforts in obtaining more information on this patient with extremely limited as the patient was nonverbal and noncommunicative. The patient resides in a residential and she started having the shortness of breath and fever. This started a few days back. The patient was seen in the emergency department at [facility] and following that the patient got transferred to us. In the emergency, the patient was given a chest x-ray and a CT angiogram. There was no evidence of any acute pulmonary abnormalities. There was no evidence of any pulmonary embolism. The blood work showed a WBC count of 8.3 with a hemoglobin 12.4 and a platelet count of 181. BUN was 15 with a creatinine of 0.59 his sodium level is at 135. Blood sugars at 91. The patient was admitted to the medical floor. I was asked to transfer this patient to the ICU as the patient become more unresponsive and more tachypneic. I reviewed her medical records. I also communicated with a person in charge of the residential. She has a prolonged history of multiple medical problems and comorbidities. She has profound mental retardation and she has cerebral palsy. She has history of seizure disorder. She has chronic anxiety. She has been incontinent and she has also had issues with expressive and receptive aphasia and language disorder. She has issues with chronic hypertension, osteoporosis and chronic anemia. I also reviewed her medication which is quite extensive. No history of any chronic lung disease. No seizure activity at the residential. She was having fever and the temperature was as high as 103 at the emergency department. No reported head trauma. No reported falls. No injuries. I came to find other that she patient is prone to have U TIs. A UA has been done in our emergency department. The white cell count is at 16 with a RBC of 8 and there is some trace protein. Covid 19 testing was negative. Influenza screen was negative. RSV screen was negative. Troponins were negative. LFTs were within normal limits. Blood sugars at 142. On today's evaluation of 08/26/2022, the patient seems to be more stable in terms of her breathing compared to yesterday. She was taken off the BiPAP this morning. Overnight, she was kept on a BiPAP at pressure 14/6 cm of water were notified to 35%. Currently she is taken off the BiPAP and she is only on 2 L of Oxymizer nasal cannula and her pulse ox is 95%. She does not seem to have any labored breathing. As mentioned, she has mental retardation, cerebral palsy, history of seizures and episodic bursts of agitation. She was taken a combination of Seroquel, Lexapro and Valium on outpatient basis. She was also on Trileptal. In terms of her seizure medication, this was switched to Keppra by neurology. The patient is afebrile for now. Cultures are negative. No significant leukocytosis. The patient is covered with accommodation of cefepime and Flagyl and vancomycin per ID recommendations. Hemodynamically stable. No significant tachycardia. Urine output is adequate. The patient is on Precedex which is at the maximal dose of 1.4 mcg/kg/m. At the same time, the patient is on IV fluids with normal saline at the rate of 100 mL an hour.The WBC count is at 3.9 with a hemoglobin of 10.7 and a platelet count of 132. The sodium is at 136, BUN is at 14 with a creatinine of 0.36. Serum bicarbs of 19. LFTs are normal. Cultures are still negative. Pro-calcitonin level is pending. Chest x-rays rotated. Nevertheless, no acute abnormalities are seen on today's chest x-ray. On 08/27/2022, the patient is still having episodes of agitation. She goes calm for quite some time and subsequently, she gets quite agitated, pulled on her mask and tubes and she tries jumping out of the bed. The patient during this episodes of agitation, she becomes also hypoxic and tachypneic and she desaturates. We thought that she could've at an episode of aspiration yesterday. Nevertheless, the chest x-ray from today is clear. Overnight, she was kept on a BiPAP at a pressure of 14/6 cm of water and FiO2 of 40%. Her current pulse ox 94% which is having scattered rhonchi on today's examination. She is on Precedex which is running at 1.4 mcg/kg/m and she is maxed out on the dosage. She is also taken Prolixin 2.5 mg IM every 12 hours and she is also on Valium 5 mg IV every 12 hours which is also on Haldol 5 mg IM 4 times a day. No fever. Hemodynamically stable and the patient is not having any hypotension. No seizure has been noted and the patient remains on IV Keppra. On her blood work, she has developed no significant leukocytosis. However, she has a component of melena negative metabolic acidosis with a serum bicarb is down to 17. She's currently on normal saline at the rate of 100 mL an hour. The pro- calcitonin level was sent yesterday and the level is at 0.15. BUN is at 12 with a creatinine of 0.4. Cultures are negative. She's covered with broad-spectrum antibiotics for now including cefepime, Flagyl and vancomycin. Objective - Vital Signs Vital signs: Vital Signs Temp 97.7 F 08/27/22 08:00 Pulse 61 08/27/22 10:00 Resp 14 08/27/22 10:00 BP 151/81 08/27/22 10:00 Pulse Ox 97 08/27/22 10:00 FiO2 45 08/27/22 07:32 Intake & Output 08/26/22 08/27/22 08/27/22 18:59 06:59 18:59 Intake Total 4109.484 8148.231 1600 Output Total 1490 740 190 Balance 233.835 712.832 2166 Weight 106.2 kg Intake: IV 1532 1420 1500 0.9 @ 20 140 120 60 Cefepime 2 gm In Sodium 125 100 100 Chloride 0.9% 100 ml @ 25 mls/hr IVPB Q8HR [facility] Rx# :[id number] Invasive Line 3 100 Invasive Line 4 20 Invasive Line 5 20 Potassium Chloride 10 meq 200 In Water For Injection 1 100ml.bag @ 100 mls/hr IVPB Q1H [facility] Rx#: [id number] Sodium Chloride 0.9% 1, 900 600 400 000 ml @ 100 mls/hr IV . Q10H [facility] Rx#:[id number] Vancomycin 1,750 mg In 167 500 500 Sodium Chloride 0.9% 500 ml 500 ml @ 167 mls/hr IVPB Q12HR [facility] Rx#: [id number] metroNIDAZOLE-NS PMX 500 200 100 100 mg In Saline 1 100ml.bag @ 100 mls/hr IVPB Q8HR [facility] Rx#:[id number] Intake, IV Titration 191.835 231.231 100 Amount Dexmedetomidine/0.9% NaCl 191.835 231.231 100 (Pmx) 400 mcg In Empty Bag 1 bag @ 0.2 MCG/KG/HR 5.103 mls/hr IV .[id number] [facility] Rx#:[id number] Output: Urine 1465 740 190 Emesis 25 Other: Voiding Method Indwelling Catheter Indwelling Catheter # Bowel Movements 1 - Exam Patient is currently somewhat rested and comfortable. Nevertheless, she is having bursts and episodes of agitation.. She is on BiPAP pressures of 14/6 with an FiO2 of 40% oxygen by nasal cannula She is nonverbal. She is obese with a body mass index of 41.2 Head exam was generally normal. There was no scleral icterus or corneal arcus. Mucous membranes were moist. Neck was supple and without jugular venous distension, thyromegaly, or carotid bruits. Carotids were easily palpable bilaterally. There was no adenopathy. Lungs sounds are diminished bilaterally and scattered rhonchi heard throughout the lung velazquez bilaterally. Cardiac exam revealed the PMI to be normally situated and sized. The rhythm was regular and no extrasystoles were noted during several minutes of auscultation. The first and second heart sounds were normal and physiologic splitting of the second heart sound was noted. There were no murmurs, rubs, clicks, or gallops. Abdominal exam revealed normal bowel sounds. The abdomen was soft, non-tender, and without masses, organomegaly, or appreciable enlargement of the abdominal aorta. Chronic contractures in lower extremities bilaterally. Trace edema. No cyanosis or clubbing. Examination of the skin revealed no evidence of significant rashes, suspicious appearing nevi or other concerning lesions. Neurologic exam is quite limited. The patient has a positive cough and a gag. Pupils are round 3-4 mm in size reactive to light. She does not follow any commands at this point in time. She is moving all 4 extremities without limitation. There is obvious motor weakness lower extremities bilaterally along with chronic contractures. Reflexes are diminished at the present. No Babinski or clonus. No significant neck stiffness at this point in time. As mentioned, she has episodes of extreme agitation especially when stimulated. Minimal amount of touch and stimulation will make this patient Significantly agitation. - Labs CBC & Chem 7: 08/27/22 03:16 08/27/22 03:16 Labs: Abnormal Lab Results - Last 24 Hours (Table) 08/26/22 08/27/22 08/27/22 Range/Units 06:37 03:16 03:16 Hgb 10.4 L (11.4-16.0) gm/dL Hct 32.8 L (34.0-46.0) % RDW 15.7 H (11.5-15.5) % Plt Count 127 L (150-450) k/uL Lymphocytes # 0.6 L (1.0-4.8) k/uL Sodium 136 L (137-145) mmol/L Carbon Dioxide 17 L (22-30) mmol/L Creatinine 0.47 L (0.52-1.04) mg/dL Calcium 7.8 L (8.4-10.2) mg/dL Total Protein 5.4 L (6.3-8.2) g/dL Albumin 3.0 L (3.5-5.0) g/dL Procalcitonin 0.15 H (0.02-0.09) ng/mL Microbiology - Last 24 Hours (Table) 08/25/22 05:45 Blood Culture - Preliminary Blood 08/25/22 05:30 Blood Culture - Preliminary Blood 08/25/22 10:44 Urine Culture - Final Urine,Catheterized Assessment and Plan Plan: Acute febrile illness, currently under investigation. Rule out underlying infection/sepsis. Exact source is not clear. The patient is currently afebrile and she has not spiked any further temperatures since yesterday. White cell count nonelevated and she is covered with broad-spectrum antibiotics including a combination of cefepime vancomycin and Flagyl. Infectious diseases on the case. Awaiting pro-calcitonin level. Cultures are all negative. Patient is currently afebrile and the pro calcitonin level is at 0.15. Consider the poss ibility of a serotonergic syndrome underlying a fever Acute on chronic encephalopathy. The patient has worsening in the mentation and she seems to be quite unresponsive at this point in time. Could be related to underlying infection. Also consider the possibility of drug reactions as the patient is on a combination of high-dose Lexapro, Seroquel, and Valium. No clear indication of serotonergic syndrome although this is within the differential diagnosis. The patient continues to have episodes of agitation and encephalopathy. She is current on a combination of Prolixin, Haldol, Valium and Precedex infusion. Acute shortness of breath, and the patient desaturates during episodes of agita tion. Based on that, the patient was kept on a BiPAP at this point in time. She does have features of sleep apnea with significant crowding of posterior pharynx. Chest x-rays clear. Profound mental retardation Cerebral palsy Seizure disorder Expressive and receptive aphasia Chronic anxiety Hypertension Osteoporosis Urinary incontinence Previous episodes of UTI [facility] resident Plan Continue Precedex Introduce Valium 1 mg IV every 8 hours, the dose of 5 mg IV Increase the Prolixin to 2.5 mg IM every 6 hours Haldol as needed Keep BiPAP for now Continue Keppra Continue bronchodilators Continue IV fluids Close monitoring with a sitter at the bedside Consults psychiatry. Neurology input is also appreciated DNR/DNI CODE STATUS Heparin subcu portably prophylaxis Kuhn catheter Condition is critical and we'll continue to follow
[2022-08-27] MEDS ORDERED: flUPHENAZine 2.5 MG/ML (MDV) 10 ML VIAL IM STA (10:29)
[2022-08-27] MEDS: DEXTROSE 5% IN WATER 1,000 ML with SODIUM BICARB (1 MEQ/ML) 150 ML IV ONE ×3 (11:12→21:05)
[2022-08-27 11:54] LABS: Glucose,Whole Blood 105 mg/dL (70-110)
--- NOTE | 2022-08-27 12:35 | P.PN ---
Subjective Progress Note Date: 08/27/22 CHIEF COMPLAINT: Altered mental status and shortness of breath HISTORY OF PRESENT ILLNESS: Patient remains in the ICU. Patient is still requiring the BiPAP. She continues to have episodes of agitation. Patient's requiring Valium and Haldol. She remains on Precedex. Patient did have a large bowel movement yesterday and a small bowel movement today. No nausea or vomiting reported. Afebrile. WBC is 4.8 Hgb 10.4 platelets 127 sodium is 136 potassium 3.[address] of abdomen and pelvis was canceled yesterday due to patient's agitation and she was unable to lay still for CT. Patient seen and examined with Dr. Maldonado PHYSICAL EXAM: VITAL SIGNS: Reviewed. GENERAL: Agitated with episodes of shortness of breath ABDOMEN: Soft. distended. Nontender. ASSESSMENT: 1. Resolving ileus 2. Recent hospitalization at [facility] with rectal bolus and constipation 3. Febrile illness 4. Shortness of breath 5. History of cerebral palsy PLAN: -Continue ICU management -Continue supportive care Physician Meter/Relay Technician note has been reviewed by physician. Signing provider agrees with the documented findings, assessment, and plan of care. Objective - Vital Signs Vital signs: Vital Signs Temp 97.5 F L 08/27/22 12:00 Pulse 68 08/27/22 12:00 Resp 17 08/27/22 12:00 BP 140/62 08/27/22 12:00 Pulse Ox 96 08/27/22 12:00 FiO2 40 08/27/22 12:00 Intake & Output 08/26/22 08/27/22 08/27/22 18:59 06:59 18:59 Intake Total 8095.620 1669.231 1830 Output Total 1490 740 325 Balance 233.835 064.397 7859 Weight 106.2 kg Intake: IV 1532 1420 1730 0.9 @ 20 140 120 60 Cefepime 2 gm In Sodium 125 100 100 Chloride 0.9% 100 ml @ 25 mls/hr IVPB Q8HR [facility] Rx# :[id number] Dextrose 5% in Water 1, 200 000 ml @ 100 mls/hr IV . [id number] ONE with Sodium Bicarb (1 Meq/ml) 150 ml Rx#:[id number] Invasive Line 3 110 Invasive Line 4 30 Invasive Line 5 30 Potassium Chloride 10 meq 200 In Water For Injection 1 100ml.bag @ 100 mls/hr IVPB Q1H [facility] Rx#: [id number] Sodium Chloride 0.9% 1, 900 600 400 000 ml @ 100 mls/hr IV . Q10H [facility] Rx#:[id number] Vancomycin 1,750 mg In 167 500 500 Sodium Chloride 0.9% 500 ml 500 ml @ 167 mls/hr IVPB Q12HR [facility] Rx#: [id number] metroNIDAZOLE-NS PMX 500 200 100 100 mg In Saline 1 100ml.bag @ 100 mls/hr IVPB Q8HR [facility] Rx#:[id number] Intake, IV Titration 191.835 231.231 100 Amount Dexmedetomidine/0.9% NaCl 191.835 231.231 100 (Pmx) 400 mcg In Empty Bag 1 bag @ 0.2 MCG/KG/HR 5.103 mls/hr IV .[id number] [facility] Rx#:[id number] Output: Urine 1465 740 325 Emesis 25 Other: Voiding Method Indwelling Catheter Indwelling Catheter Indwelling Catheter # Bowel Movements 1 - Labs CBC & Chem 7: 08/27/22 03:16 08/27/22 03:16 Labs: Abnormal Lab Results - Last 24 Hours (Table) 08/26/22 08/27/22 08/27/22 Range/Units 06:37 03:16 03:16 Hgb 10.4 L (11.4-16.0) gm/dL Hct 32.8 L (34.0-46.0) % RDW 15.7 H (11.5-15.5) % Plt Count 127 L (150-450) k/uL Lymphocytes # 0.6 L (1.0-4.8) k/uL Sodium 136 L (137-145) mmol/L Carbon Dioxide 17 L (22-30) mmol/L Creatinine 0.47 L (0.52-1.04) mg/dL Calcium 7.8 L (8.4-10.2) mg/dL Total Protein 5.4 L (6.3-8.2) g/dL Albumin 3.0 L (3.5-5.0) g/dL Procalcitonin 0.15 H (0.02-0.09) ng/mL Microbiology - Last 24 Hours (Table) 08/25/22 05:45 Blood Culture - Preliminary Blood 08/25/22 05:30 Blood Culture - Preliminary Blood 08/25/22 10:44 Urine Culture - Final Urine,Catheterized
--- NOTE | 2022-08-27 14:19 | P.PN ---
Subjective Progress Note Date: 08/27/22 This is a 61-year-old female who was recently admitted with change in mental status with concerns of possible serotonin syndrome and also febrile with features of sepsis, present on admission possibly secondary to pneumonia. Patient is currently in ICU being closely monitored with multiple medical consu ltations following. Patient is becoming more alert and combative per nursing staff and currently maintained on Precedex along with Valium and was given Prolixin which is discontinued. Patient currently calm at the moment maintained on the Precedex. Patient continues on IV Ativan with preliminary cultures pending and urine culture thus far is negative. Per nursing staff patient is having bowel movements and general surgery was evaluating the patient for possible ileus. CT abdomen was unable to be performed given patient's agitation and is still pending. Patient also continues on BiPAP with FiO2 of 40% and PEEP is 5 and maintaining oxygen saturations above 95%. Patient is currently afeb rile. Review of systems: Unable to obtain as patient is nonverbal Active Medications Albuterol Sulfate (Albuterol Nebulized 2.5 Mg/3 Ml) 2.5 mg INHALATION RT-QID [facility] Last Admin: 08/27/22 10:46 Dose: 2.5 mg Albuterol/Ipratropium (Ipratropium-Albuterol 3 Ml Neb) 3 ml INHALATION RT-QID PRN PRN Reason: Shortness Of Breath Or Wheezing Last Admin: 08/25/22 16:22 Dose: 3 ml Clonidine HCl (Clonidine 0.3 Mg/24hr Patch) 1 patch TRANSDERM Q7D [facility] Last Admin: 08/26/22 11:45 Dose: 1 patch Diazepam (Diazepam 5 Mg/Ml 2 Ml Inj) 5 mg IVP 0900,1700 [facility] Last Admin: 08/27/22 09:05 Dose: 5 mg Diazepam (Diazepam 5 Mg/Ml 2 Ml Inj) 5 mg IVP Q8HR [facility] Fluphenazine HCl (Fluphenazine 2.5 Mg/Ml (Mdv) 10 Ml Vial) 2.5 mg IM Q6H [facility] Haloperidol Lactate (Haloperidol Lactate 5 Mg/Ml 1 Ml Vial) 5 mg IM Q6HR PRN PRN Reason: Agitation or Acute Psychosis Last Admin: 08/27/22 09:11 Dose: 5 mg Heparin Sodium (Porcine) (Heparin Sodium,Porcine/Pf 5,000 Unit/0.5 Ml Syringe) 5,000 unit SQ Q12HR [facility] Last Admin: 08/27/22 09:09 Dose: 5,000 unit Hydralazine HCl (Hydralazine Hcl 20 Mg/Ml 1 Ml Vial) 10 mg IVP Q4HR PRN PRN Reason: Blood Pressure - High Last Admin: 08/26/22 21:08 Dose: 10 mg Sodium Chloride (Saline 0.9%) 1,000 mls @ 100 mls/hr IV .Q10H [facility] Last Admin: 08/27/22 09:12 Dose: 100 mls/hr Dexmedetomidine HCl 400 mcg/ (IV Solution) 100 mls @ 5.103 mls/hr IV .[id number] [facility]; Protocol Last Admin: 08/27/22 09:05 Dose: 1.3 mcg/kg/hr, 33.169 mls/hr Vancomycin HCl 1,750 mg/ (Sodium Chloride) 500 mls @ 167 mls/hr IVPB Q12HR [facility] Last Admin: 08/27/22 09:42 Dose: 167 mls/hr Cefepime HCl 2 gm/ Sodium (Chloride) 100 mls @ 25 mls/hr IVPB Q8HR [facility]; Protocol Last Admin: 08/27/22 08:00 Dose: 25 mls/hr Metronidazole 500 mg/ IV (Solution) 100 mls @ 100 mls/hr IVPB Q8HR [facility]; Protocol Last Admin: 08/27/22 09:06 Dose: 100 mls/hr Sodium Bicarbonate 150 ml/ (Dextrose/Water) 1,150 mls @ 100 mls/hr IV .[id number] [facility] Stop: 08/27/22 22:29 Last Admin: 08/27/22 11:12 Dose: 100 mls/hr Levetiracetam (Levetiracetam Iv 500 Mg/5 Ml Vial) 1,000 mg IVP Q12HR [facility] Last Admin: 08/27/22 09:11 Dose: 1,000 mg Miscellaneous Information (Pneumonia Protocol Utilized 1 Each Misc) 1 each PO ONCE PRN PRN Reason: Per Protocol Miscellaneous Information (Vancomycin Trough Due 1 Each Misc) 1 each MISCELLANE ONCE ONE Stop: 08/27/22 20:01 Ondansetron HCl (Ondansetron 4 Mg/2 Ml Vial) 4 mg IVP Q6HR PRN PRN Reason: Nausea And Vomiting Last Admin: 08/27/22 09:11 Dose: 4 mg Pantoprazole Sodium (Pantoprazole 40 Mg/10 Ml Vial) 40 mg IVP DAILY [facility] Last Admin: 08/27/22 09:09 Dose: 40 mg PHYSICAL EXAMINATION: GENERAL: The patient is alert and oriented x1, Well developed, well nourished. Morbidly obese, currently less agitated maintained on Precedex along with BiPAP with FiO2 of 40% HEENT: Pupils are round and equally reacting to light. EOMI. no scleral icterus. No conjunctival pallor. Normocephalic, atraumatic. No pharyngeal erythema. No thyromegaly. CARDIOVASCULAR: S1 and S2 muffled PULMONARY: diminished breath sounds bilaterally with some scattered rhonchi noted. ABDOMEN: soft. Nontender on exam. obese. non-distended, normoactive bowel sounds. No palpable organomegaly. MUSCULOSKELETAL: No joint swelling or deformity. EXTREMITIES: No cyanosis, clubbing, or pedal edema. NEUROLOGICAL: Unable to completely assess as patient is maintained on Precedex and continues to be extremely agitated intermittently, Diffuse weakness SKIN: No rashes. Assessment: Bilateral pneumonia, possibly aspiration, possibly interstitial viral pneumonia with sepsis, present on admission Change in mental status, acute mental ENCEPHALOPATHY, multifactorial History of cerebral palsy History of seizure disorder Abdominal distention with possible ileus, resolving with recent hospitalization at [facility] for rectal bolus and constipation previous history of multiple urinary tract infections and VRE History of severe anxiety GI prophylaxis DVT prophylaxis No code, no CPR, no vent Plan: Recommend to continue with current medications and management with multiple medical consultations following. Patient is continued in the ICU currently calm although does have increased agitation and aggression toward staff. Patient is currently maintained on Precedex along with sodium bicarb cefepime and IV Keppra along with antibiotics in the form of cefepime, vancomycin and Flagyl. Pulmonary rate setter, general surgery, infectious disease, psychiatry following and patient is requiring significant amounts of Prolixin and Valium for her increased agitation. Patient does have caregivers that normally stay with her and have reported she is quite aggressive with them as well on a daily basis. Urine culture did finalized with no growth and blood cultures preliminary are pending but showing no growth thus far. Patient will continue to be monitored in the ICU and maintained on BiPAP currently and weaning FiO2 as tolerated currently at 40% FiO2 with a PEEP of 5 maintaining oxygen saturation above 96%. Labs reviewed and within normal limits, pro-calcitonin is 0.15 and blood sugars are being monitored and normal. The impression and plan of care has been dictated by Sadia Pryor, nurse practitioner as directed. Dr. Maury MD I have performed a history and examination and MDM of this patient, discussed the same with the dictator, and agree with the dictator's assessment and plan as written ,documented as a scribe. Based on total visit time, I have performed more than 50% of the visit. Any additional findings or plans will be noted. Objective - Vital Signs Vital signs: Vital Signs Temp 97.5 F L 08/27/22 12:00 Pulse 68 08/27/22 12:00 Resp 17 08/27/22 12:00 BP 140/62 08/27/22 12:00 Pulse Ox 96 08/27/22 12:00 FiO2 40 08/27/22 12:00 Intake & Output 08/26/22 08/27/22 08/27/22 18:59 06:59 18:59 Intake Total 1682.235 7613.231 1830 Output Total 1490 740 325 Balance 233.835 889.545 4742 Weight 106.2 kg Intake: IV 1532 1420 1730 0.9 @ 20 140 120 60 Cefepime 2 gm In Sodium 125 100 100 Chloride 0.9% 100 ml @ 25 mls/hr IVPB Q8HR [facility] Rx# :[id number] Dextrose 5% in Water 1, 200 000 ml @ 100 mls/hr IV . [id number] ONE with Sodium Bicarb (1 Meq/ml) 150 ml Rx#:[id number] Invasive Line 3 110 Invasive Line 4 30 Invasive Line 5 30 Potassium Chloride 10 meq 200 In Water For Injection 1 100ml.bag @ 100 mls/hr IVPB Q1H [facility] Rx#: [id number] Sodium Chloride 0.9% 1, 900 600 400 000 ml @ 100 mls/hr IV . Q10H [facility] Rx#:[id number] Vancomycin 1,750 mg In 167 500 500 Sodium Chloride 0.9% 500 ml 500 ml @ 167 mls/hr IVPB Q12HR [facility] Rx#: [id number] metroNIDAZOLE-NS PMX 500 200 100 100 mg In Saline 1 100ml.bag @ 100 mls/hr IVPB Q8HR [facility] Rx#:[id number] Intake, IV Titration 191.835 231.231 100 Amount Dexmedetomidine/0.9% NaCl 191.835 231.231 100 (Pmx) 400 mcg In Empty Bag 1 bag @ 0.2 MCG/KG/HR 5.103 mls/hr IV .[id number] [facility] Rx#:[id number] Output: Urine 1465 740 325 Emesis 25 Other: Voiding Method Indwelling Catheter Indwelling Catheter Indwelling Catheter # Bowel Movements 1 - Labs CBC & Chem 7: 08/27/22 03:16 08/27/22 03:16 Labs: Abnormal Lab Results - Last 24 Hours (Table) 08/26/22 08/27/22 08/27/22 Range/Units 06:37 03:16 03:16 Hgb 10.4 L (11.4-16.0) gm/dL Hct 32.8 L (34.0-46.0) % RDW 15.7 H (11.5-15.5) % Plt Count 127 L (150-450) k/uL Lymphocytes # 0.6 L (1.0-4.8) k/uL Sodium 136 L (137-145) mmol/L Carbon Dioxide 17 L (22-30) mmol/L Creatinine 0.47 L (0.52-1.04) mg/dL Calcium 7.8 L (8.4-10.2) mg/dL Total Protein 5.4 L (6.3-8.2) g/dL Albumin 3.0 L (3.5-5.0) g/dL Procalcitonin 0.15 H (0.02-0.09) ng/mL Microbiology - Last 24 Hours (Table) 08/25/22 05:45 Blood Culture - Preliminary Blood 08/25/22 05:30 Blood Culture - Preliminary Blood 08/25/22 10:44 Urine Culture - Final Urine,Catheterized
--- NOTE | 2022-08-27 14:36 | P.PN ---
Progress Note - Text Progress Note Date: 08/27/22 Interval History: Patient was seen today for psychiatric follow-up regarding patient's delirium. Patient's mother states that patient has been agitated and restless, kicking and pulling at restraints. Patient continues to be nonverbal with keno writer / runner and was in respiratory distress. Continues to be on BiPAP mask. Vital signs appear to be improved since yesterday. Primary team increased patient's Valium and also Prolixin dose. Patient was not able to communicate or follow any directions fro m keno writer / runner. Mental Status Exam: General Appearance: Patient appears to be overweight, aears to be in significant respiratory distress, stated age is lethargic, not following commands. wearing hospital gown. Wearing BiPAP mask. Behavior: respiratory distress, not following commands. 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 PLAN: -At this time patient DOES NOT meet criteria for inpatient psychiatric admission. -Delirium precautions recommended with patient including - avoiding use of narcotics and INFORMATION SYSTEMS PROJECT MANAGER sedatives, limit anticholinergic medications when possible, frequent re-orientation, minimize use of restraints, open window shades during the day and close them at night -Would recommend the following medication changes/additions: Increase prolixin 5mg q8hr IM for psychosis/delirium scheduled. continue with valium scheduled 5 mg bid IV to prevent/treat withdrawal delirium. would not suggest increasing valium further and advise against valium as a prn at this time. continue haldol IVP to 5 mg q6hr prn for agitation. consider switching or decreasing keppra to another AED due to risk of increased agitation from this medication. continue to taper/decrease steroids as this will also increasing confusion/delirium. -Communicated plan to patient's nurse -Will continue to follow along -Please contact with any questions.
[2022-08-27] MEDS ORDERED: flUPHENAZine 2.5 MG/ML (MDV) 10 ML VIAL IM SCH (15:00)
--- NOTE | 2022-08-27 15:02 | P.PN ---
Subjective Progress Note Date: 08/27/22 Principal diagnosis: Sepsis Patient is a 61-year-old female with a past medical history negative for cerebral palsy seizure disorder history of urine incontinence and UTI patient was transferred from [facility] for evaluation of difficulty in breathing apparently the patient was recently admitted and [facility] apparently the patient did have some fecal retention , patient presented with sepsis and concern for possible abdominal source. On today's evaluation that is 08/27/2022, the patient remains to be febrile, patient is hemodynamically stable and remains to be on BiPAP, the patient remains to be restless no vomiting or diarrhea has been reported Objective - Vital Signs Vital signs: Vital Signs Temp 97.7 F 08/27/22 08:00 Pulse 62 08/27/22 10:57 Resp 14 08/27/22 10:00 BP 151/81 08/27/22 10:00 Pulse Ox 97 08/27/22 10:00 FiO2 35 08/27/22 10:44 Intake & Output 08/26/22 08/27/22 08/27/22 18:59 06:59 18:59 Intake Total 5803.942 5081.231 1600 Output Total 1490 740 190 Balance 233.835 615.408 0924 Weight 106.2 kg Intake: IV 1532 1420 1500 0.9 @ 20 140 120 60 Cefepime 2 gm In Sodium 125 100 100 Chloride 0.9% 100 ml @ 25 mls/hr IVPB Q8HR [facility] Rx# :[id number] Invasive Line 3 100 Invasive Line 4 20 Invasive Line 5 20 Potassium Chloride 10 meq 200 In Water For Injection 1 100ml.bag @ 100 mls/hr IVPB Q1H [facility] Rx#: [id number] Sodium Chloride 0.9% 1, 900 600 400 000 ml @ 100 mls/hr IV . Q10H [facility] Rx#:[id number] Vancomycin 1,750 mg In 167 500 500 Sodium Chloride 0.9% 500 ml 500 ml @ 167 mls/hr IVPB Q12HR [facility] Rx#: [id number] metroNIDAZOLE-NS PMX 500 200 100 100 mg In Saline 1 100ml.bag @ 100 mls/hr IVPB Q8HR [facility] Rx#:[id number] Intake, IV Titration 191.835 231.231 100 Amount Dexmedetomidine/0.9% NaCl 191.835 231.231 100 (Pmx) 400 mcg In Empty Bag 1 bag @ 0.2 MCG/KG/HR 5.103 mls/hr IV .[id number] [facility] Rx#:[id number] Output: Urine 1465 740 190 Emesis 25 Other: Voiding Method Indwelling Catheter Indwelling Catheter # Bowel Movements 1 - Exam GENERAL DESCRIPTION: Middle-aged female lying in bed in no distress RESPIRATORY SYSTEM: Unlabored breathing , coarse process bilaterally HEART: S1 S2 regular rate and rhythm , ABDOMEN: Soft , abdominal distention and tenderness EXTREMITIES: No edema feet - Labs CBC & Chem 7: 08/27/22 03:16 08/27/22 03:16 Labs: Abnormal Lab Results - Last 24 Hours (Table) 08/26/22 08/27/22 08/27/22 Range/Units 06:37 03:16 03:16 Hgb 10.4 L (11.4-16.0) gm/dL Hct 32.8 L (34.0-46.0) % RDW 15.7 H (11.5-15.5) % Plt Count 127 L (150-450) k/uL Lymphocytes # 0.6 L (1.0-4.8) k/uL Sodium 136 L (137-145) mmol/L Carbon Dioxide 17 L (22-30) mmol/L Creatinine 0.47 L (0.52-1.04) mg/dL Calcium 7.8 L (8.4-10.2) mg/dL Total Protein 5.4 L (6.3-8.2) g/dL Albumin 3.0 L (3.5-5.0) g/dL Procalcitonin 0.15 H (0.02-0.09) ng/mL Microbiology - Last 24 Hours (Table) 08/25/22 05:45 Blood Culture - Preliminary Blood 08/25/22 05:30 Blood Culture - Preliminary Blood 08/25/22 10:44 Urine Culture - Final Urine,Catheterized Assessment and Plan (1) Sepsis Current Visit: Yes Status: Acute Code(s): A41.9 - SEPSIS, UNSPECIFIED ORGANISM SNOMED Code(s): 01371587 Plan: 1patient presented to hospital with sepsis in this patient with the fever tachycardia source possible abdominal as the patient did have a chest x-ray and CT angiogram of the chest did not show any consolidation urine is mildly positive and evidence of any cellulitis or joint swelling apparently patient did have significant abdominal distention and tenderness likely abdominal source, CT could not be done because of her clinical condition and the patient is very restless and unable to stay still per the nursing staff 2-patient with multiple antibiotic allergies that would limit the number of antibiotics safe to use 3Patient fever has resolved culture has been negative so far, patient to continue with cefepime and Flagyl, while monitor clinical course closely, p rognosis remains to be guarded Time with Patient: Less than 30
--- NOTE | 2022-08-27 17:01 | P.PN ---
Subjective Progress Note Date: 08/27/22 Seen at bedside and she is on BiPAP. Per the patient nurse she's been agitated throughout the day. As on IV Precedex. Objective - Vital Signs Vital signs: Vital Signs Temp 97.5 F L 08/27/22 12:00 Pulse 68 08/27/22 15:30 Resp 12 08/27/22 15:30 BP 148/73 08/27/22 15:30 Pulse Ox 96 08/27/22 15:30 FiO2 40 08/27/22 15:30 Intake & Output 08/26/22 08/27/22 08/27/22 18:59 06:59 18:59 Intake Total 0507.108 6399.231 2253.979 Output Total 1490 740 520 Balance 233.835 285.654 5617.979 Weight 106.2 kg Intake: IV 1532 1420 2060 0.9 @ 20 140 120 60 Cefepime 2 gm In Sodium 125 100 100 Chloride 0.9% 100 ml @ 25 mls/hr IVPB Q8HR [facility] Rx# :[id number] Dextrose 5% in Water 1, 500 000 ml @ 100 mls/hr IV . [id number] ONE with Sodium Bicarb (1 Meq/ml) 150 ml Rx#:[id number] Invasive Line 3 120 Invasive Line 4 40 Invasive Line 5 40 Potassium Chloride 10 meq 200 In Water For Injection 1 100ml.bag @ 100 mls/hr IVPB Q1H [facility] Rx#: [id number] Sodium Chloride 0.9% 1, 900 600 400 000 ml @ 100 mls/hr IV . Q10H [facility] Rx#:[id number] Vancomycin 1,750 mg In 167 500 500 Sodium Chloride 0.9% 500 ml 500 ml @ 167 mls/hr IVPB Q12HR [facility] Rx#: [id number] metroNIDAZOLE-NS PMX 500 200 100 100 mg In Saline 1 100ml.bag @ 100 mls/hr IVPB Q8HR [facility] Rx#:[id number] Intake, IV Titration 191.835 231.231 193.979 Amount Dexmedetomidine/0.9% NaCl 191.835 231.231 193.979 (Pmx) 400 mcg In Empty Bag 1 bag @ 0.2 MCG/KG/HR 5.103 mls/hr IV .[id number] [facility] Rx#:[id number] Output: Urine 1465 740 520 Emesis 25 Other: Voiding Method Indwelling Catheter Indwelling Catheter Indwelling Catheter # Bowel Movements 1 - Exam Neuro: Lung: on BiPAP. Limited because of the patient's the cooperation. Patient is also on IV Precedex 1.4mg/kg/hr. Patient is not verbalizing or following commands. She continue gets very agitated whenever attempting to examine her. Pupils are round and she tracks throughout the room. No facial weakness She's able to move upper and lower on her own but has the hand restraints because she gets so agitated. She is moving bilateral lower extremity spontaneously. Some of the workup during his hospital visit consisted of: T-max is 103.2 Fahrenheit--resolved White blood cell is 8.3 thousand which is considered normal. Calcium, BUN and creatinine, AST ALT are within normal limits Serum glucose is 91. - Labs CBC & Chem 7: 08/27/22 03:16 08/27/22 03:16 Labs: Abnormal Lab Results - Last 24 Hours (Table) 08/26/22 08/27/22 08/27/22 Range/Units 06:37 03:16 03:16 Hgb 10.4 L (11.4-16.0) gm/dL Hct 32.8 L (34.0-46.0) % RDW 15.7 H (11.5-15.5) % Plt Count 127 L (150-450) k/uL Lymphocytes # 0.6 L (1.0-4.8) k/uL Sodium 136 L (137-145) mmol/L Carbon Dioxide 17 L (22-30) mmol/L Creatinine 0.47 L (0.52-1.04) mg/dL Calcium 7.8 L (8.4-10.2) mg/dL Total Protein 5.4 L (6.3-8.2) g/dL Albumin 3.0 L (3.5-5.0) g/dL Procalcitonin 0.15 H (0.02-0.09) ng/mL Microbiology - Last 24 Hours (Table) 08/25/22 05:45 Blood Culture - Preliminary Blood 08/25/22 05:30 Blood Culture - Preliminary Blood Assessment and Plan Assessment: Acute febrile illness unknown exact source. Was febrile but normal wbc, and neck seems supple and I feel low suspicion for LAWYER CRIMINAL infection--fever resolved. Agitation due to multifactoria: Due to underlying infection, medication induced (Keppra) and hospital induced. Encephalopathy due to underlying infection Acute shortness of breath Developmental delay Cerebral palsy History of seizure Language impairments the patient has a component of both expressive and receptive aphasia Urinary incontinence Hypertension Osteoporosis Chronic anxiety Plan: I stopped the Keppra because of the patient's agitation placed her on Vimpat 50 mg IV bid. She is unable swallow resume her home medication of Trileptal on Zonegran. Once the patient is able to swallow then recommend resuming her home antiseizure medication. She will not cooperate for a routine EEG since very agitated on examination. I.D. team is on board and patient is on ceftriaxone 2 g every 24 hour, vancomycin, Zosyn. Psychiatry is consulted. They have modified medication and placed on Haldol 5mg every 5 hours. We'll defer the rest of medical management to the primary team The plan was discussed with her nurse. Will continue to follow. Time with Patient: Less than 30
[2022-08-27 17:05] LABS: African American GFR (CKD) >90 (>60 ml/min/1.73 sqM); Anion Gap 8 mmol/L; Blood Urea Nitrogen 12 mg/dL (7-17); Calcium 7.6 mg/dL (8.4-10.2); Carbon Dioxide 23 mmol/L (22-30); Chloride 107 mmol/L (98-107); Glucose 132 mg/dL (74-99); Non-African American GFR(CKD) >90 (>60 ml/min/1.73 sqM); Sodium 138 mmol/L (137-145)
[2022-08-27] MEDS ORDERED: Potassium Replacement Protocol 1 EACH MISC MISCELLANE PRN (17:46)
[2022-08-27 17:56] LABS: Glucose,Whole Blood 142 mg/dL (70-110)
[2022-08-27] MEDS ORDERED: VANCOMYCIN TROUGH DUE 1 EACH MISC MISCELLANE ONE (20:00)
[2022-08-27] MEDS: Lacosamide IV (ages 17+ yrs) 200 MG/20 ML ML IVP SCH (21:01)
[2022-08-27] MEDS: DEXTROSE 5% IN WATER 1,000 ML with SODIUM BICARB (1 MEQ/ML) 150 ML IV SCH (22:43)
[2022-08-28] MEDS: metroNIDAZOLE-NS PMX 500 MG in SALINE 1 100ML.BAG IVPB SCH ×4 (00:42→23:50)
[2022-08-28] MEDS: CEFEPIME 2 GM in SODIUM CHLORIDE 0.9% 100 ML IVPB SCH ×4 (00:42→23:50)
[2022-08-28] MEDS: POTASSIUM CHLORIDE 10 MEQ in WATER FOR INJECTION 1 100ML.BAG IVPB SCH ×8 (00:43→17:07)
[2022-08-28] MEDS: flUPHENAZine 2.5 MG/ML (MDV) 10 ML VIAL IM SCH ×4 (00:46→23:50)
[2022-08-28] MEDS: DEXMEDETOMIDINE/0.9% NACL(PMX) 400 MCG in EMPTY BAG 1 BAG IV SCH ×8 (01:57→23:06)
[2022-08-28] MEDS: HALOPERIDOL LACTATE 5 MG/ML 1 ML VIAL IM PRN ×3 (03:35→18:12)
[2022-08-28 05:09] LABS: Basophils % (A) 0 %; Eosinophils % (A) 0 %; HCT 32.3 % (34.0-46.0); HGB 10.5 gm/dL (11.4-16.0); Lymphocytes # (A) 0.6 k/uL (1.0-4.8); Lymphocytes % (A) 13 %; MCH 26.9 pg (25.0-35.0); MCHC 32.5 g/dL (31.0-37.0); MCV 82.6 fL (80.0-100.0); Monocytes # (A) 0.3 k/uL (0-1.0); Monocytes % (A) 7 %; Neutrophils # (A) 3.6 k/uL (1.3-7.7); Neutrophils % (A) 76 %; Platelet Count 150 k/uL (150-450); RBC 3.92 m/uL (3.80-5.40); RDW 15.7 % (11.5-15.5); WBC 4.8 k/uL (3.8-10.6)
[2022-08-28 05:18] LABS: ALT 23 U/L (4-34); AST 38 U/L (14-36); African American GFR (CKD) >90 (>60 ml/min/1.73 sqM); Alkaline Phosphatase 67 U/L (38-126); Anion Gap 10 mmol/L; Blood Urea Nitrogen 10 mg/dL (7-17); Calcium 7.9 mg/dL (8.4-10.2); Carbon Dioxide 21 mmol/L (22-30); Chloride 106 mmol/L (98-107); Glucose 110 mg/dL (74-99); Magnesium 1.8 mg/dL (1.6-2.3); Non-African American GFR(CKD) >90 (>60 ml/min/1.73 sqM); Potassium 3.4 mmol/L (3.5-5.1); Sodium 137 mmol/L (137-145); Total Bilirubin 0.6 mg/dL (0.2-1.3); Total Protein 5.5 g/dL (6.3-8.2)
[2022-08-28] MEDS: ALBUTEROL NEBULIZED 2.5 MG/3 ML INHALATION SCH ×4 (07:39→19:46)
[2022-08-28] MEDS: PANTOPRAZOLE 40 MG/10 ML VIAL IVP SCH (08:05)
[2022-08-28] MEDS: HEPARIN SODIUM,PORCINE/PF 5,000 UNIT/0.5 ML SYRINGE SQ SCH ×2 (08:05→20:41)
[2022-08-28] MEDS: Lacosamide IV (ages 17+ yrs) 200 MG/20 ML ML IVP SCH ×2 (08:13→20:41)
--- NOTE | 2022-08-28 08:32 | P.PN ---
Subjective Progress Note Date: 08/28/22 This is a 61-year-old female patient with obvious developmental delay. Transferred from [facility] to our emergency department because of difficulty breathing. The patient was seen in the ED by Dr. Jorge Karimi and Dr. Josh Moffett. Unfortunately, that efforts in obtaining more information on this patient with extremely limited as the patient was nonverbal and noncommunicative. The patient [facility] in a [facility] and she started having the shortness of breath and fever. This started a few days back. The patient was seen in the emergency department at [facility] and following that the patient got transferred to us. In the emergency, the patient was given a chest x-ray and a CT angiogram. There was no evidence of any acute pulmonary abnormalities. There was no evidence of any pulmonary embolism. The blood work showed a WBC count of 8.3 with a hemoglobin 12.4 and a platelet count of 181. BUN was 15 with a creatinine of 0.59 his sodium level is at 135. Blood sugars at 91. The patient was admitted to the medical floor. I was asked to transfer this patient to the ICU as the patient become more unresponsive and more tachypneic. I reviewed her medical records. I also communicated with a person in charge of the penitentiary. She has a prolonged history of multiple medical problems and comorbidities. She has profound mental retardation and she has cerebral palsy. She has history of seizure disorder. She has chronic anxiety. She has been incontinent and she has also had issues with expressive and receptive aphasia and language disorder. She has issues with chronic hypertension, osteoporosis and chronic anemia. I also reviewed her medication which is quite extensive. No history of any chronic lung disease. No seizure activity at the penitentiary. She was having fever and the temperature was as high as 103 at the emergency department. No reported head trauma. No reported falls. No injuries. I came to find other that she patient is prone to have U TIs. A UA has been done in our emergency department. The white cell count is at 16 with a RBC of 8 and there is some trace protein. Covid 19 testing was negative. Influenza screen was negative. RSV screen was negative. Troponins were negative. LFTs were within normal limits. Blood sugars at 142. On today's evaluation of 08/26/2022, the patient seems to be more stable in terms of her breathing compared to yesterday. She was taken off the BiPAP this morning. Overnight, she was kept on a BiPAP at pressure 14/6 cm of water were notified to 35%. Currently she is taken off the BiPAP and she is only on 2 L of Oxymizer nasal cannula and her pulse ox is 95%. She does not seem to have any labored breathing. As mentioned, she has mental retardation, cerebral palsy, history of seizures and episodic bursts of agitation. She was taken a combination of Seroquel, Lexapro and Valium on outpatient basis. She was also on Trileptal. In terms of her seizure medication, this was switched to Keppra by neurology. The patient is afebrile for now. Cultures are negative. No significant leukocytosis. The patient is covered with accommodation of cefepime and Flagyl and vancomycin per ID recommendations. Hemodynamically stable. No significant tachycardia. Urine output is adequate. The patient is on Precedex which is at the maximal dose of 1.4 mcg/kg/m. At the same time, the patient is on IV fluids with normal saline at the rate of 100 mL an hour.The WBC count is at 3.9 with a hemoglobin of 10.7 and a platelet count of 132. The sodium is at 136, BUN is at 14 with a creatinine of 0.36. Serum bicarbs of 19. LFTs are normal. Cultures are still negative. Pro-calcitonin level is pending. Chest x-rays rotated. Nevertheless, no acute abnormalities are seen on today's chest x-ray. On 08/27/2022, the patient is still having episodes of agitation. She goes calm for quite some time and subsequently, she gets quite agitated, pulled on her mask and tubes and she tries jumping out of the bed. The patient during this episodes of agitation, she becomes also hypoxic and tachypneic and she desaturates. We thought that she could've at an episode of aspiration yesterday. Nevertheless, the chest x-ray from today is clear. Overnight, she was kept on a BiPAP at a pressure of 14/6 cm of water and FiO2 of 40%. Her current pulse ox 94% which is having scattered rhonchi on today's examination. She is on Precedex which is running at 1.4 mcg/kg/m and she is maxed out on the dosage. She is also taken Prolixin 2.5 mg IM every 12 hours and she is also on Valium 5 mg IV every 12 hours which is also on Haldol 5 mg IM 4 times a day. No fever. Hemodynamically stable and the patient is not having any hypotension. No seizure has been noted and the patient remains on IV Keppra. On her blood work, she has developed no significant leukocytosis. However, she has a component of melena negative metabolic acidosis with a serum bicarb is down to 17. She's currently on normal saline at the rate of 100 mL an hour. The pro- calcitonin level was sent yesterday and the level is at 0.15. BUN is at 12 with a creatinine of 0.4. Cultures are negative. She's covered with broad-spectrum antibiotics for now including cefepime, Flagyl and vancomycin. On today's evaluation of 08/28/2022, the patient's continues to be agitated and delirious. Unfortunately, she continues to have this episodes of significant agitation, restlessness, kicking and pulling and using her arms reaching out and grabbing and punching the nurses. She cannot communicate. She is known to have mental retardation due to cerebral palsy. She remains on Precedex at 1.4 mcg/kg/m. She remains on IV Valium 5 mg every 12 hours. She was also given a higher dose of Prolixin 5 mg IM every 6 hours pH is also receiving Haldol and a when necessary basis. On and off, she still requiring BiPAP for respiratory support. She does have upper airway secretions and she does have features of obstructive sleep apnea and whenever she is in sleep, she may episodic to desaturate and for that reason she is being supported with a BiPAP at a pressure of 14/6 with an FiO2 of 30%. I believe that BiPAP is sometimes also increasing to education. She remains nothing by mouth. IV fluids are running in the order of bicarb infusion at the rate of 100 mL an hour. Urine output is in order of 50 mL an hour. She is afebrile. Hemodynamically stable. She is covered with broad-spectrum antibiotics including a combination of cefepime, Flagyl and vancomycin. Cultures have been negative for now. Blood work shows a WBC count of 4.8, hemoglobin of 10.5 and a platelet count of 150. Sodium is at 137, potassium is at 3.4, BUN is at 10 with a creatinine of 0.34 and a serum bicarbs at 21. Electrolytes are normal. Neurology is on the case. Psychiatric is on the case. Their input is appreciated. Objective - Vital Signs Vital signs: Vital Signs Temp 98.5 F 08/28/22 04:00 Pulse 58 L 08/28/22 07:40 Resp 10 L 08/28/22 07:00 BP 120/91 08/28/22 07:00 Pulse Ox 96 08/28/22 07:00 FiO2 35 08/28/22 07:40 Intake & Output 08/27/22 08/28/22 08/28/22 18:59 06:59 18:59 Intake Total 3073.426 3119.790 320 Output Total 695 675 80 Balance 2378.426 2444.790 240 Weight 108.5 kg Intake: IV 2780 2740 220 0.9 @ 20 180 100 20 Cefepime 2 gm In Sodium 200 100 Chloride 0.9% 100 ml @ 25 mls/hr IVPB Q8HR [facility] Rx# :[id number] Dextrose 5% in Water 1, 800 1200 100 000 ml @ 100 mls/hr IV . [id number] ONE with Sodium Bicarb (1 Meq/ml) 150 ml Rx#:[id number] Invasive Line 3 120 Invasive Line 4 40 20 Invasive Line 5 40 20 Potassium Chloride 10 meq 300 700 100 In Water For Injection 1 100ml.bag @ 100 mls/hr IVPB Q1H [facility] Rx#: [id number] Sodium Chloride 0.9% 1, 400 000 ml @ 100 mls/hr IV . Q10H [facility] Rx#:[id number] Vancomycin 1,750 mg In 500 500 Sodium Chloride 0.9% 500 ml 500 ml @ 167 mls/hr IVPB Q12HR [facility] Rx#: [id number] metroNIDAZOLE-NS PMX 500 200 100 mg In Saline 1 100ml.bag @ 100 mls/hr IVPB Q8HR [facility] Rx#:[id number] Intake, IV Titration 293.426 379.790 100 Amount Dexmedetomidine/0.9% NaCl 293.426 379.790 100 (Pmx) 400 mcg In Empty Bag 1 bag @ 0.2 MCG/KG/HR 5.103 mls/hr IV .[id number] [facility] Rx#:[id number] Output: Urine 695 675 80 Other: Voiding Method Indwelling Catheter Indwelling Catheter - Exam Patient is currently somewhat rested and comfortable. Nevertheless, she is having bursts and episodes of agitation.. She is on BiPAP pressures of 14/6 with an FiO2 of 30 % oxygen by nasal cannula She is nonverbal. She is obese with a body mass index of 41.2 Head exam was generally normal. There was no scleral icterus or corneal arcus. Mucous membranes were moist. Neck was supple and without jugular venous distension, thyromegaly, or carotid bruits. Carotids were easily palpable bilaterally. There was no adenopathy. Lungs sounds are diminished bilaterally and scattered rhonchi heard throughout the lung velazquez bilaterally. Cardiac exam revealed the PMI to be normally situated and sized. The rhythm was regular and no extrasystoles were noted during several minutes of auscultation. The first and second heart sounds were normal and physiologic splitting of the second heart sound was noted. There were no murmurs, rubs, clicks, or gallops. Abdominal exam revealed normal bowel sounds. The abdomen was soft, non-tender, and without masses, organomegaly, or appreciable enlargement of the abdominal aorta. Chronic contractures in lower extremities bilaterally. Trace edema. No cya nosis or clubbing. Examination of the skin revealed no evidence of significant rashes, suspicious appearing nevi or other concerning lesions. Neurologic exam is quite limited. The patient has a positive cough and a gag. Pupils are round 3-4 mm in size reactive to light. She does not follow any co mmands at this point in time. She is moving all 4 extremities without limitation. There is obvious motor weakness lower extremities bilaterally along with chronic contractures. Reflexes are diminished at the present. No Babinski or clonus. No significant neck stiffness at this point in time. As mentioned, she has episodes of extreme agitation especially when stimulated. Minimal amount of touch and stimulation will make this patient Significantly agitation. - Labs CBC & Chem 7: 08/28/22 04:39 08/28/22 04:39 Labs: Abnormal Lab Results - Last 24 Hours (Table) 08/27/22 08/27/22 08/28/22 Range/Units 16:20 17:49 04:39 Hgb 10.5 L (11.4-16.0) gm/dL Hct 32.3 L (34.0-46.0) % RDW 15.7 H (11.5-15.5) % Lymphocytes # 0.6 L (1.0-4.8) k/uL Potassium 3.0 L (3.5-5.1) mmol/L Carbon Dioxide (22-30) mmol/L Creatinine 0.38 L (0.52-1.04) mg/dL Glucose 132 H (74-99) mg/dL POC Glucose (mg/dL) 142 H (70-110) mg/dL Calcium 7.6 L (8.4-10.2) mg/dL AST (14-36) U/L Total Protein (6.3-8.2) g/dL Albumin (3.5-5.0) g/dL 08/28/22 Range/Units 04:39 Hgb (11.4-16.0) gm/dL Hct (34.0-46.0) % RDW (11.5-15.5) % Lymphocytes # (1.0-4.8) k/uL Potassium 3.4 L (3.5-5.1) mmol/L Carbon Dioxide 21 L (22-30) mmol/L Creatinine 0.34 L (0.52-1.04) mg/dL Glucose 110 H (74-99) mg/dL POC Glucose (mg/dL) (70-110) mg/dL Calcium 7.9 L (8.4-10.2) mg/dL AST 38 H (14-36) U/L Total Protein 5.5 L (6.3-8.2) g/dL Albumin 3.0 L (3.5-5.0) g/dL Microbiology - Last 24 Hours (Table) 08/25/22 05:45 Blood Culture - Preliminary Blood 08/25/22 05:30 Blood Culture - Preliminary Blood Assessment and Plan Plan: Acute febrile illness, currently under investigation. Rule out underlying infection/sepsis. Exact source is not clear. The patient is currently afebrile and she has not spiked any further temperatures since yesterday. White cell count nonelevated and she is covered with broad-spectrum antibiotics including a combination of cefepime vancomycin and Flagyl. Infectious diseases on the case. Awaiting pro-calcitonin level. Cultures are all negative. Patient is currently afebrile and the pro calcitonin level is at 0.15. Consider the possibility of a serotonergic syndrome underlying a fever. The patient has been afebrile this admission and she has not spiked any temperatures over the past 48 hours. She remains on same antibiotic coverage. Acute on chronic encephalopathy/psychosis/delirium.. The patient has worsening in the mentation and she seems to be quite unresponsive at this point in time. Could be related to underlying infection. Also consider the possibility of drug reactions as the patient is on a combination of high-dose Lexapro, Seroquel, and Valium. No clear indication of serotonergic syndrome although this is within the differential diagnosis. The patient continues to have episodes of agitation and encephalopathy. She is current on a combination of Prolixin, Haldol, Valium and Precedex infusion. No major change in her neurologic status as the patient continued episodic agitated despite the offered treatment Acute shortness of breath, and the patient desaturates during episodes of agitation. Based on that, the patient was kept on a BiPAP at this point in time. She does have features of sleep apnea with significant crowding of posterior pharynx. Chest x-rays clear. She does have features otherwise and she does have upper airway secretions causing episodic oxygen desaturation she improves significantly with BiPAP. Nevertheless, BiPAP is also had a good education. Profound mental retardation Cerebral palsy Seizure disorder Expressive and receptive aphasia Chronic anxiety Hypertension Osteoporosis Urinary incontinence Previous episodes of UTI senior care resident Plan Continue Precedex Introduce Valium 1 mg IV every 12 hours, the dose of 5 mg IV Increase the Prolixin to 5 mg IM every 6 hours Haldol as needed Keep BiPAP for now on enough specially when she desaturates. May discontinue vancomycin. I percent on thing that the patient is infected. We'll discuss with ID regarding the possibility of discontinuing other antibiotic coverage Continue Vimpat Continue bronchodilators Continue IV fluids, switch this patient to D5 half-normal saline at the rate of 75 mL an hour Close monitoring with a sitter at the bedside Consults psychiatry. Neurology input is also appreciated DNR/DNI CODE STATUS Heparin subcu portably prophylaxis Kuhn catheter Condition is critical and we'll continue to follow
--- NOTE | 2022-08-28 09:14 | XR ---
EXAMINATION TYPE: XR chest 1V DATE OF EXAM: 08/28/2022 9:09 AM COMPARISON: Chest radiographs from 08/27/2022 TECHNIQUE: XR chest 1V Portable AP radiograph of the chest. CLINICAL INDICATION:Female, 61 years old with history of tachypnea; FINDINGS: Lungs/Pleura: There is no evidence of pleural effusion, focal consolidation, or pneumothorax. Pulmonary vascularity: Pulmonary vascular congestion. Heart/mediastinum: Cardiomediastinal silhouette is unremarkable. Musculoskeletal: No acute osseous pathology. IMPRESSION: Mild pulmonary vascular congestion.
[2022-08-28] MEDS: DEXTROSE 5% IN WATER 1,000 ML with SODIUM BICARB (1 MEQ/ML) 150 ML IV SCH (09:23)
[2022-08-28] MEDS: DEXTROSE 5%-0.45% NACL 1,000 ML IV SCH ×2 (09:26→22:16)
[2022-08-28] MEDS ORDERED: Magnesium Replacement Protocol 1 EACH MISC MISCELLANE PRN (09:58)
[2022-08-28] MEDS ORDERED: MAGNESIUM SULFATE-D5W PMX 1 GM in DEXTROSE/WATER 1 100ML.BAG IVPB ONE (10:00)
--- NOTE | 2022-08-28 10:24 | P.PN ---
Subjective Progress Note Date: 08/28/22 The patient seen at bedside and per the patient nurse there notified by her caregivers that the patient is very agitated at baseline. And per the nurse this agitation is not new. It seems the patient still requires the BiPAP and that yesterday her pulse ox dropped to the high 70s due to her agitation Objective - Vital Signs Vital signs: Vital Signs Temp 97.7 F 08/28/22 08:00 Pulse 71 08/28/22 09:00 Resp 23 08/28/22 09:00 BP 161/88 08/28/22 09:00 Pulse Ox 93 L 08/28/22 09:00 FiO2 40 08/28/22 08:00 Intake & Output 08/27/22 08/28/22 08/28/22 18:59 06:59 18:59 Intake Total 3073.426 3119.790 760 Output Total 695 675 170 Balance 2378.426 2444.790 590 Weight 108.5 kg 108.5 kg Intake: IV 2780 2740 560 0.9 @ 20 180 100 60 Cefepime 2 gm In Sodium 200 100 100 Chloride 0.9% 100 ml @ 25 mls/hr IVPB Q8HR [facility] Rx# :[id number] Dextrose 5% in Water 1, 800 1200 200 000 ml @ 100 mls/hr IV . [id number] ONE with Sodium Bicarb (1 Meq/ml) 150 ml Rx#:[id number] Invasive Line 3 120 Invasive Line 4 40 20 Invasive Line 5 40 20 Potassium Chloride 10 meq 300 700 100 In Water For Injection 1 100ml.bag @ 100 mls/hr IVPB Q1H [facility] Rx#: [id number] Sodium Chloride 0.9% 1, 400 000 ml @ 100 mls/hr IV . Q10H [facility] Rx#:[id number] Vancomycin 1,750 mg In 500 500 Sodium Chloride 0.9% 500 ml 500 ml @ 167 mls/hr IVPB Q12HR [facility] Rx#: [id number] metroNIDAZOLE-NS PMX 500 200 100 100 mg In Saline 1 100ml.bag @ 100 mls/hr IVPB Q8HR [facility] Rx#:[id number] Intake, IV Titration 293.426 379.790 200 Amount Dexmedetomidine/0.9% NaCl 293.426 379.790 100 (Pmx) 400 mcg In Empty Bag 1 bag @ 0.2 MCG/KG/HR 5.103 mls/hr IV .[id number] [facility] Rx#:[id number] Potassium Chloride 10 meq 100 In Water For Injection 1 100ml.bag @ 100 mls/hr IVPB Q1HR [facility] Rx#: [id number] Tube Feeding 0 Output: Urine 695 675 170 Other: Voiding Method Indwelling Catheter Indwelling Catheter Indwelling Catheter - Exam Neuro: Lung: on BiPAP. Limited because of the patient's the cooperation. Patient is also on IV Precedex 1.4mg/kg/hr. Is on Valium Patient is sleeping. No facial weakness. No spontaneous movement. Some of the workup during his hospital visit consisted of: T-max is 103.2 Fahrenheit--resolved White blood cell is 8.3 thousand which is considered normal. Calcium, BUN and creatinine, AST ALT are within normal limits Serum glucose is 91. - Labs CBC & Chem 7: 08/28/22 04:39 08/28/22 04:39 Labs: Abnormal Lab Results - Last 24 Hours (Table) 08/27/22 08/27/22 08/28/22 Range/Units 16:20 17:49 04:39 Hgb 10.5 L (11.4-16.0) gm/dL Hct 32.3 L (34.0-46.0) % RDW 15.7 H (11.5-15.5) % Lymphocytes # 0.6 L (1.0-4.8) k/uL Potassium 3.0 L (3.5-5.1) mmol/L Carbon Dioxide (22-30) mmol/L Creatinine 0.38 L (0.52-1.04) mg/dL Glucose 132 H (74-99) mg/dL POC Glucose (mg/dL) 142 H (70-110) mg/dL Calcium 7.6 L (8.4-10.2) mg/dL AST (14-36) U/L Total Protein (6.3-8.2) g/dL Albumin (3.5-5.0) g/dL 08/28/22 Range/Units 04:39 Hgb (11.4-16.0) gm/dL Hct (34.0-46.0) % RDW (11.5-15.5) % Lymphocytes # (1.0-4.8) k/uL Potassium 3.4 L (3.5-5.1) mmol/L Carbon Dioxide 21 L (22-30) mmol/L Creatinine 0.34 L (0.52-1.04) mg/dL Glucose 110 H (74-99) mg/dL POC Glucose (mg/dL) (70-110) mg/dL Calcium 7.9 L (8.4-10.2) mg/dL AST 38 H (14-36) U/L Total Protein 5.5 L (6.3-8.2) g/dL Albumin 3.0 L (3.5-5.0) g/dL Microbiology - Last 24 Hours (Table) 08/25/22 05:45 Blood Culture - Preliminary Blood 08/25/22 05:30 Blood Culture - Preliminary Blood Assessment and Plan Assessment: Acute febrile illness unknown exact source. Was febrile but normal wbc, and neck seems supple and I feel low suspicion for [employer] infection--fever resolved. Severe Agitation (baseline). Encephalopathy due to underlying infection Acute shortness of breath Developmental delay Cerebral palsy History of seizure Language impairments the patient has a component of both expressive and receptive aphasia Urinary incontinence Hypertension Osteoporosis Chronic anxiety Plan: I stopped the Keppra because of the patient's agitation placed her on Vimpat 50 mg IV bid. She is unable swallow resume her home medication of Trileptal on Zonegran. Once the patient is able to swallow then recommend resuming her home antiseizure medication. She will not cooperate for a routine EEG since very agitated on examination. I.D. team is on board and patient is on ceftriaxone 2 g every 24 hour, vancomycin, Zosyn. Psychiatry is on board. They have modified medication and placed on Haldol 5mg every 5 hours. We'll defer the rest of medical management to the primary team The plan was discussed with ICU attending and her nurse. Will continue to follow. From neurological perspective once her respiratory condition improves and is back to baseline, then she can be discharged back to her facility. Time with Patient: Less than 30
[2022-08-28 12:42] LABS: Glucose,Whole Blood 130 mg/dL (70-110)
--- NOTE | 2022-08-28 13:09 | P.PN ---
Subjective Progress Note Date: 08/28/22 Principal diagnosis: Sepsis Patient is a 61-year-old female with a past medical history negative for cerebral palsy seizure disorder history of urine incontinence and UTI patient was transferred from [facility] for evaluation of difficulty in breathing apparently the patient was recently admitted and [facility] apparently the patient did have some fecal retention , patient presented with sepsis and concern for possible abdominal source. On today's evaluation that is 08/28, the patient to be febrile, patient remains to be restless and unable to provide any history, patient is hemodynamically stable and is currently off BiPAP on 4 L nasal cannula oxygen , the patient remains to be restless no vomiting or diarrhea has been reported Objective - Vital Signs Vital signs: Vital Signs Temp 97.7 F 08/28/22 08:00 Pulse 71 08/28/22 09:00 Resp 23 08/28/22 09:00 BP 161/88 08/28/22 09:00 Pulse Ox 93 L 08/28/22 09:00 FiO2 40 08/28/22 08:00 Intake & Output 08/27/22 08/28/22 08/28/22 18:59 06:59 18:59 Intake Total 3073.426 3119.790 856.444 Output Total 695 675 170 Balance 2378.426 2444.790 686.444 Weight 108.5 kg 108.5 kg Intake: IV 2780 2740 560 0.9 @ 20 180 100 60 Cefepime 2 gm In Sodium 200 100 100 Chloride 0.9% 100 ml @ 25 mls/hr IVPB Q8HR [facility] Rx# :[id number] Dextrose 5% in Water 1, 800 1200 200 000 ml @ 100 mls/hr IV . [id number] ONE with Sodium Bicarb (1 Meq/ml) 150 ml Rx#:[id number] Invasive Line 3 120 Invasive Line 4 40 20 Invasive Line 5 40 20 Potassium Chloride 10 meq 300 700 100 In Water For Injection 1 100ml.bag @ 100 mls/hr IVPB Q1H [facility] Rx#: [id number] Sodium Chloride 0.9% 1, 400 000 ml @ 100 mls/hr IV . Q10H [facility] Rx#:[id number] Vancomycin 1,750 mg In 500 500 Sodium Chloride 0.9% 500 ml 500 ml @ 167 mls/hr IVPB Q12HR [facility] Rx#: [id number] metroNIDAZOLE-NS PMX 500 200 100 100 mg In Saline 1 100ml.bag @ 100 mls/hr IVPB Q8HR [facility] Rx#:[id number] Intake, IV Titration 293.426 379.790 296.444 Amount Dexmedetomidine/0.9% NaCl 293.426 379.790 196.444 (Pmx) 400 mcg In Empty Bag 1 bag @ 0.2 MCG/KG/HR 5.103 mls/hr IV .[id number] [facility] Rx#:[id number] Potassium Chloride 10 meq 100 In Water For Injection 1 100ml.bag @ 100 mls/hr IVPB Q1HR [facility] Rx#: [id number] Tube Feeding 0 Output: Urine 695 675 170 Other: Voiding Method Indwelling Catheter Indwelling Catheter Indwelling Catheter - Exam GENERAL DESCRIPTION: Middle-aged female lying in bed in no distress RESPIRATORY SYSTEM: Unlabored breathing , coarse process bilaterally HEART: S1 S2 regular rate and rhythm , ABDOMEN: Soft , abdominal distention and tenderness EXTREMITIES: No edema feet - Labs CBC & Chem 7: 08/28/22 04:39 08/28/22 04:39 Labs: Abnormal Lab Results - Last 24 Hours (Table) 08/27/22 08/27/22 08/28/22 Range/Units 16:20 17:49 04:39 Hgb 10.5 L (11.4-16.0) gm/dL Hct 32.3 L (34.0-46.0) % RDW 15.7 H (11.5-15.5) % Lymphocytes # 0.6 L (1.0-4.8) k/uL Potassium 3.0 L (3.5-5.1) mmol/L Carbon Dioxide (22-30) mmol/L Creatinine 0.38 L (0.52-1.04) mg/dL Glucose 132 H (74-99) mg/dL POC Glucose (mg/dL) 142 H (70-110) mg/dL Calcium 7.6 L (8.4-10.2) mg/dL AST (14-36) U/L Total Protein (6.3-8.2) g/dL Albumin (3.5-5.0) g/dL 08/28/22 Range/Units 04:39 Hgb (11.4-16.0) gm/dL Hct (34.0-46.0) % RDW (11.5-15.5) % Lymphocytes # (1.0-4.8) k/uL Potassium 3.4 L (3.5-5.1) mmol/L Carbon Dioxide 21 L (22-30) mmol/L Creatinine 0.34 L (0.52-1.04) mg/dL Glucose 110 H (74-99) mg/dL POC Glucose (mg/dL) (70-110) mg/dL Calcium 7.9 L (8.4-10.2) mg/dL AST 38 H (14-36) U/L Total Protein 5.5 L (6.3-8.2) g/dL Albumin 3.0 L (3.5-5.0) g/dL Microbiology - Last 24 Hours (Table) 08/25/22 05:45 Blood Culture - Preliminary Blood 08/25/22 05:30 Blood Culture - Preliminary Blood Assessment and Plan (1) Sepsis Current Visit: Yes Status: Acute Code(s): A41.9 - SEPSIS, UNSPECIFIED ORGANISM SNOMED Code(s): 23630112 Plan: 1patient presented to hospital with sepsis in this patient with the fever tachycardia source possible abdominal as the patient did have a chest x-ray and CT angiogram of the chest did not show any consolidation urine is mildly positive and evidence of any cellulitis or joint swelling apparently patient did have significant abdominal distention and tenderness likely abdominal source, CT could not be done because of her clinical condition and the patient is very restless and unable to stay still per the nursing staff 2-patient with multiple antibiotic allergies that would limit the number of antibiotics safe to use 3Patient fever has resolved culture has been negative so far, patient to continue with cefepime and Flagyl as concern for possible intra-abdominal source, vancomycin has been discontinued and the patient will monitor closely Time with Patient: Less than 30
--- NOTE | 2022-08-28 13:46 | P.PN ---
Progress Note - Text Progress Note Date: 08/28/22 The patient remains essentially unchanged from yesterday. She has had some flatus. Her ileus appears to be resolving. On exam vitals remained stable. Abdomen is soft mildly distended. Ileus there is no surgical intervention planned.
--- NOTE | 2022-08-28 14:14 | P.PN ---
Progress Note - Text Progress Note Date: 08/28/22 Interval History: Patient was seen today for psychiatric follow-up regarding patient's delirium. Patient's nurse states that patient was doing a bit better today, however was somewhat restless at nighttime. Flow Floor Attendant and nurse spoke about patient's treatment and requested to have patient's Valium switched to every 12 hours dosing to help carry patient through the night time which was just ordered and adjusted. Patient is doing on and off bipap and apparently breathing a bit better today. Patient was seen laying in bed today not using BiPAP at the moment appears to have improving vital signs. she continues to be in soft restraints. Patient continues to be nonverbal with technical proposal writer and not following any commands. Patient was not able to communicate or follow any directions from technical proposal writer. Mental Status Exam: General Appearance: Patient appears to be overweight, appears to be in less respiratory distress today, stated age is lethargic, not following commands. wearing hospital gown. Not Wearing BiPAP mask. Behavior: less respiratory distress, not following commands. eyes closed Speech: unable to assess, moaning at times. Mood/Affect: unable to assess Suicidality/Homicidality: unable to assess Perceptions: unable to assess Though content/process: none Memory and concentration: impaired conctration, not following commands Judgment and insight: unable to assess IMPRESSIONS: Delirium, likely multifactorial, toxic-metabolic and likely medications (BZD withdrawal), corticosteroids, infection PLAN: -At this time patient DOES NOT meet criteria for inpatient psychiatric admission. patient does appear to be mildly improved in her condition compared to yesterday -Delirium precautions recommended with patient including - avoiding use of narcotics and [employer] sedatives, limit anticholinergic medications when possible, frequent re-orientation, minimize use of restraints, open window shades during the day and close them at night -Would recommend the following medication changes/additions: continue prolixin 5mg q8hr IM for psychosis/delirium scheduled and consider adjusting over the weekend to rely less on valium and BZD. continue with valium scheduled but changed to 5 mg q12hr IV to prevent/treat withdrawal delirium. would not suggest increasing valium further and advise against valium as a prn at this time. continue haldol IVP to 5 mg q6hr prn for agitation. continue to taper/decrease steroids as this will also increasing confusion/delirium. -Communicated plan to patient's nurse -Will continue to follow along over the weekend. -continue treatment of underlying medical condition -Please contact with any questions.
[2022-08-28 15:31] LABS: African American GFR (CKD) >90 (>60 ml/min/1.73 sqM); Anion Gap 4 mmol/L; Blood Urea Nitrogen 6 mg/dL (7-17); Carbon Dioxide 30 mmol/L (22-30); Chloride 105 mmol/L (98-107); Glucose 108 mg/dL (74-99); Non-African American GFR(CKD) >90 (>60 ml/min/1.73 sqM); Potassium 3.7 mmol/L (3.5-5.1); Sodium 139 mmol/L (137-145)
[2022-08-29] MEDS: IPRATROPIUM-ALBUTEROL 3 ML NEB INHALATION PRN ×2 (00:06→04:03)
[2022-08-29 00:24] LABS: Glucose,Whole Blood 132 mg/dL (70-110)
[2022-08-29] MEDS: DEXMEDETOMIDINE/0.9% NACL(PMX) 400 MCG in EMPTY BAG 1 BAG IV SCH ×3 (01:38→07:52)
[2022-08-29 04:27] LABS: African American GFR (CKD) >90 (>60 ml/min/1.73 sqM); Anion Gap 7 mmol/L; Blood Urea Nitrogen 5 mg/dL (7-17); Calcium 7.7 mg/dL (8.4-10.2); Carbon Dioxide 27 mmol/L (22-30); Chloride 103 mmol/L (98-107); Glucose 125 mg/dL (74-99); Non-African American GFR(CKD) >90 (>60 ml/min/1.73 sqM); Potassium 3.1 mmol/L (3.5-5.1); Sodium 137 mmol/L (137-145)
[2022-08-29] MEDS: POTASSIUM CHLORIDE 10 MEQ in WATER FOR INJECTION 1 100ML.BAG IVPB SCH ×7 (04:51→23:15)
--- NOTE | 2022-08-29 05:42 | P.PN ---
Subjective Progress Note Date: 08/28/22 This is a 61-year-old female who was recently admitted with change in mental status with concerns of possible serotonin syndrome and also febrile with features of sepsis, present on admission possibly secondary to pneumonia. Patient is currently in ICU being closely monitored with multiple medical consu ltations following. Patient is becoming more alert and combative per nursing staff and currently maintained on Precedex along with Valium and was given Prolixin which is discontinued. Patient currently calm at the moment maintained on the Precedex. Patient continues on IV Ativan with preliminary cultures pending and urine culture thus far is negative. Per nursing staff patient is having bowel movements and general surgery was evaluating the patient for possible ileus. CT abdomen was unable to be performed given patient's agitation and is still pending. Patient also continues on BiPAP with FiO2 of 40% and PEEP is 5 and maintaining oxygen saturations above 95%. Patient is currently afeb rile. 08/28/2022 Patient continues to be in the ICU using BiPAP currently on 5 L via nasal cannula. Patient continues on Precedex along with multiple sedatives as patient continues to be extremely agitated. Multiple medical consultations following including psychiatry and neurology and patient appears to be somewhat at baseline as patient is frequently agitated and restless and aggressive with staff at her living facility. Patient is known to be a biter and will also attempt to head butt with extreme agitation. Patient is also continued on multiple antibiotics with infectious disease following an pro-calcitonin has been low white count normal and patient remains afebrile with overall suspicion for infection is low. All cultures thus far remain negative. Chest x-ray shows some vascular congestion. Patient continues to require BiPAP intermittently she desats quickly continuously removing oxygen supply from her face and becomes hypoxic. Patient continues to thrash around and has been receiving IM Haldol. Review of systems: Unable to obtain as patient is nonverbal PHYSICAL EXAMINATION: GENERAL: The patient is alert and oriented x1, Well developed, well nourished. Morbidly obese, currently less agitated maintained on Precedex along with nasal cannula currently although continues to remove frequently during exam HEENT: Pupils are round and equally reacting to light. EOMI. no scleral icterus. No conjunctival pallor. Normocephalic, atraumatic. No pharyngeal erythema. No thyromegaly. Oral mucosa is dry and unkempt CARDIOVASCULAR: S1 and S2 muffled PULMONARY: diminished breath sounds bilaterally with some scattered rhonchi noted. ABDOMEN: soft. Nontender on exam. obese. non-distended, normoactive bowel sounds. No palpable organomegaly. MUSCULOSKELETAL: No joint swelling or deformity. EXTREMITIES: No cyanosis, clubbing, or pedal edema. NEUROLOGICAL: Unable to completely assess as patient is maintained on Precedex and continues to be extremely agitated intermittently, Diffuse weakness SKIN: No rashes. Assessment: Bilateral pneumonia, possibly aspiration, possibly interstitial viral pneumonia with sepsis, present on admission Chronic obstructive pulmonary disease, acute exacerbation Acute hypoxic respiratory failure, secondary to above Change in mental status, acute mental ENCEPHALOPATHY, multifactorial History of cerebral palsy History of seizure disorder Abdominal distention with possible ileus, resolving with recent hospitalization at [facility] for rectal bolus and constipation previous history of multiple urinary tract infections and VRE History of severe anxiety GI prophylaxis DVT prophylaxis No code, no CPR, no vent Plan: Recommend to continue with current medications and management with multiple medical consultations following. Patient is continued in the ICU currently calm although does have increased agitation and aggression toward staff. Patient continues to be on Precedex and does have safety relief valve technician at bedside and recommend weaning Precedex along with Valium with psychiatry following as well. Infectious disease is following and patient continues on antibiotics in the form of cefepime, Flagyl, and vancomycin being discontinued. Cultures thus far are negative along with pro-calcitonin and will be discussed further with infectious disease about discontinuing antibiotics and cultures remain negative. Pulmonary law enforcement director, general surgery, infectious disease, psychiatry following and patient is requiring significant amounts of Prolixin and Valium for her increased agitation. Patient does have caregivers that normally stay with her and have reported she is quite aggressive with them as well on a daily basis. Patient will continue to be monitored in the ICU and maintained on BiPAP currently and weaning FiO2 as tolerated currently at 40% FiO2 with a PEEP of 5 maintaining oxygen saturation above 96%. Labs reviewed and recommend to replace electrolytes per protocol The impression and plan of care has been dictated by Sadia Pryor, nurse practitioner as directed. Dr. Tracy MD I have performed a history and examination and MDM of this patient, discussed the same with the dictator, and agree with the dictator's assessment and plan as written ,documented as a scribe. Based on total visit time, I have performed more than 50% of the visit. Any additional findings or plans will be noted. Objective - Vital Signs Vital signs: Vital Signs Temp 97.7 F 08/28/22 08:00 Pulse 71 08/28/22 09:00 Resp 23 08/28/22 09:00 BP 161/88 08/28/22 09:00 Pulse Ox 93 L 08/28/22 09:00 FiO2 40 08/28/22 08:00 Intake & Output 08/27/22 08/28/22 08/28/22 18:59 06:59 18:59 Intake Total 3073.426 3119.790 760 Output Total 695 675 170 Balance 2378.426 2444.790 590 Weight 108.5 kg Intake: IV 2780 2740 560 0.9 @ 20 180 100 60 Cefepime 2 gm In Sodium 200 100 100 Chloride 0.9% 100 ml @ 25 mls/hr IVPB Q8HR [facility] Rx# :[id number] Dextrose 5% in Water 1, 800 1200 200 000 ml @ 100 mls/hr IV . [id number] ONE with Sodium Bicarb (1 Meq/ml) 150 ml Rx#:[id number] Invasive Line 3 120 Invasive Line 4 40 20 Invasive Line 5 40 20 Potassium Chloride 10 meq 300 700 100 In Water For Injection 1 100ml.bag @ 100 mls/hr IVPB Q1H [facility] Rx#: [id number] Sodium Chloride 0.9% 1, 400 000 ml @ 100 mls/hr IV . Q10H [facility] Rx#:[id number] Vancomycin 1,750 mg In 500 500 Sodium Chloride 0.9% 500 ml 500 ml @ 167 mls/hr IVPB Q12HR [facility] Rx#: [id number] metroNIDAZOLE-NS PMX 500 200 100 100 mg In Saline 1 100ml.bag @ 100 mls/hr IVPB Q8HR [facility] Rx#:[id number] Intake, IV Titration 293.426 379.790 200 Amount Dexmedetomidine/0.9% NaCl 293.426 379.790 100 (Pmx) 400 mcg In Empty Bag 1 bag @ 0.2 MCG/KG/HR 5.103 mls/hr IV .[id number] [facility] Rx#:[id number] Potassium Chloride 10 meq 100 In Water For Injection 1 100ml.bag @ 100 mls/hr IVPB Q1HR [facility] Rx#: [id number] Tube Feeding 0 Output: Urine 854 633 170 Other: Voiding Method Indwelling Catheter Indwelling Catheter Indwelling Catheter - Labs CBC & Chem 7: 08/28/22 04:39 08/29/22 04:00 Labs: Abnormal Lab Results - Last 24 Hours (Table) 08/27/22 08/27/22 08/28/22 Range/Units 16:20 17:49 04:39 Hgb 10.5 L (11.4-16.0) gm/dL Hct 32.3 L (34.0-46.0) % RDW 15.7 H (11.5-15.5) % Lymphocytes # 0.6 L (1.0-4.8) k/uL Potassium 3.0 L (3.5-5.1) mmol/L Carbon Dioxide (22-30) mmol/L Creatinine 0.38 L (0.52-1.04) mg/dL Glucose 132 H (74-99) mg/dL POC Glucose (mg/dL) 142 H (70-110) mg/dL Calcium 7.6 L (8.4-10.2) mg/dL AST (14-36) U/L Total Protein (6.3-8.2) g/dL Albumin (3.5-5.0) g/dL 08/28/22 Range/Units 04:39 Hgb (11.4-16.0) gm/dL Hct (34.0-46.0) % RDW (11.5-15.5) % Lymphocytes # (1.0-4.8) k/uL Potassium 3.4 L (3.5-5.1) mmol/L Carbon Dioxide 21 L (22-30) mmol/L Creatinine 0.34 L (0.52-1.04) mg/dL Glucose 110 H (74-99) mg/dL POC Glucose (mg/dL) (70-110) mg/dL Calcium 7.9 L (8.4-10.2) mg/dL AST 38 H (14-36) U/L Total Protein 5.5 L (6.3-8.2) g/dL Albumin 3.0 L (3.5-5.0) g/dL Microbiology - Last 24 Hours (Table) 08/25/22 05:45 Blood Culture - Preliminary Blood 08/25/22 05:30 Blood Culture - Preliminary Blood
[2022-08-29] MEDS: HALOPERIDOL LACTATE 5 MG/ML 1 ML VIAL IM PRN (05:47)
[2022-08-29 06:28] LABS: Glucose,Whole Blood 130 mg/dL (70-110)
--- NOTE | 2022-08-29 07:51 | P.PN ---
Subjective Progress Note Date: 08/29/22 This is a 61-year-old female patient with obvious developmental delay. Transferred from [facility] to our emergency department because of difficulty breathing. The patient was seen in the ED by Dr. Jorge Karimi and Dr. Josh Moffett. Unfortunately, that efforts in obtaining more information on this patient with extremely limited as the patient was nonverbal and noncommunicative. The patient resides in a residential and she started having the shortness of breath and fever. This started a few days back. The patient was seen in the emergency department at [facility] and following that the patient got transferred to us. In the emergency, the patient was given a chest x-ray and a CT angiogram. There was no evidence of any acute pulmonary abnormalities. There was no evidence of any pulmonary embolism. The blood work showed a WBC count of 8.3 with a hemoglobin 12.4 and a platelet count of 181. BUN was 15 with a creatinine of 0.59 his sodium level is at 135. Blood sugars at 91. The patient was admitted to the medical floor. I was asked to transfer this patient to the ICU as the patient become more unresponsive and more tachypneic. I reviewed her medical records. I also communicated with a person in charge of the residential. She has a prolonged history of multiple medical problems and comorbidities. She has profound mental retardation and she has cerebral palsy. She has history of seizure disorder. She has chronic anxiety. She has been incontinent and she has also had issues with expressive and receptive aphasia and language disorder. She has issues with chronic hypertension, osteoporosis and chronic anemia. I also reviewed her medication which is quite extensive. No history of any chronic lung disease. No seizure activity at the residential. She was having fever and the temperature was as high as 103 at the emergency department. No reported head trauma. No reported falls. No injuries. I came to find other that she patient is prone to have U TIs. A UA has been done in our emergency department. The white cell count is at 16 with a RBC of 8 and there is some trace protein. Covid 19 testing was negative. Influenza screen was negative. RSV screen was negative. Troponins were negative. LFTs were within normal limits. Blood sugars at 142. On today's evaluation of 08/26/2022, the patient seems to be more stable in terms of her breathing compared to yesterday. She was taken off the BiPAP this morning. Overnight, she was kept on a BiPAP at pressure 14/6 cm of water were notified to 35%. Currently she is taken off the BiPAP and she is only on 2 L of Oxymizer nasal cannula and her pulse ox is 95%. She does not seem to have any labored breathing. As mentioned, she has mental retardation, cerebral palsy, history of seizures and episodic bursts of agitation. She was taken a combination of Seroquel, Lexapro and Valium on outpatient basis. She was also on Trileptal. In terms of her seizure medication, this was switched to Keppra by neurology. The patient is afebrile for now. Cultures are negative. No significant leukocytosis. The patient is covered with accommodation of cefepime and Flagyl and vancomycin per ID recommendations. Hemodynamically stable. No significant tachycardia. Urine output is adequate. The patient is on Precedex which is at the maximal dose of 1.4 mcg/kg/m. At the same time, the patient is on IV fluids with normal saline at the rate of 100 mL an hour.The WBC count is at 3.9 with a hemoglobin of 10.7 and a platelet count of 132. The sodium is at 136, BUN is at 14 with a creatinine of 0.36. Serum bicarbs of 19. LFTs are normal. Cultures are still negative. Pro-calcitonin level is pending. Chest x-rays rotated. Nevertheless, no acute abnormalities are seen on today's chest x-ray. On 08/27/2022, the patient is still having episodes of agitation. She goes calm for quite some time and subsequently, she gets quite agitated, pulled on her mask and tubes and she tries jumping out of the bed. The patient during this episodes of agitation, she becomes also hypoxic and tachypneic and she desaturates. We thought that she could've at an episode of aspiration yesterday. Nevertheless, the chest x-ray from today is clear. Overnight, she was kept on a BiPAP at a pressure of 14/6 cm of water and FiO2 of 40%. Her current pulse ox 94% which is having scattered rhonchi on today's examination. She is on Precedex which is running at 1.4 mcg/kg/m and she is maxed out on the dosage. She is also taken Prolixin 2.5 mg IM every 12 hours and she is also on Valium 5 mg IV every 12 hours which is also on Haldol 5 mg IM 4 times a day. No fever. Hemodynamically stable and the patient is not having any hypotension. No seizure has been noted and the patient remains on IV Keppra. On her blood work, she has developed no significant leukocytosis. However, she has a component of melena negative metabolic acidosis with a serum bicarb is down to 17. She's currently on normal saline at the rate of 100 mL an hour. The pro- calcitonin level was sent yesterday and the level is at 0.15. BUN is at 12 with a creatinine of 0.4. Cultures are negative. She's covered with broad-spectrum antibiotics for now including cefepime, Flagyl and vancomycin. On today's evaluation of 08/28/2022, the patient's continues to be agitated and delirious. Unfortunately, she continues to have this episodes of significant agitation, restlessness, kicking and pulling and using her arms reaching out and grabbing and punching the nurses. She cannot communicate. She is known to have mental retardation due to cerebral palsy. She remains on Precedex at 1.4 mcg/kg/m. She remains on IV Valium 5 mg every 12 hours. She was also given a higher dose of Prolixin 5 mg IM every 6 hours pH is also receiving Haldol and a when necessary basis. On and off, she still requiring BiPAP for respiratory support. She does have upper airway secretions and she does have features of obstructive sleep apnea and whenever she is in sleep, she may episodic to desaturate and for that reason she is being supported with a BiPAP at a pressure of 14/6 with an FiO2 of 30%. I believe that BiPAP is sometimes also increasing to education. She remains nothing by mouth. IV fluids are running in the order of bicarb infusion at the rate of 100 mL an hour. Urine output is in order of 50 mL an hour. She is afebrile. Hemodynamically stable. She is covered with broad-spectrum antibiotics including a combination of cefepime, Flagyl and vancomycin. Cultures have been negative for now. Blood work shows a WBC count of 4.8, hemoglobin of 10.5 and a platelet count of 150. Sodium is at 137, potassium is at 3.4, BUN is at 10 with a creatinine of 0.34 and a serum bicarbs at 21. Electrolytes are normal. Neurology is on the case. Psychiatric is on the case. Their input is appreciated. On 08/29/2022, clinically unchanged, essentially not doing a lot of progress as the patient still gets episodes of agitation, tries to reach to oxygen masks and cannula, tries to reach out to the nurses, headaches, yells, and these at all, episodes especially if she gets stimulated. Unfortunately, this has not some . She remains on Precedex at a high dose of 1.4 mcg/kg/m. She remains on Prolixin 5 mg IV every 8 hours. She is taken Haldol as needed. She is also on Valium 5 mg IV every 12 hours. Neurologic exam is nonfocal. She is on Vimpat for seizure control. Electrolytes are all within normal on today's evaluation. Chest x-ray from yesterday showed no acute abnormalities. The patient has some increased pulmonary vascular markings. Meanwhile, she is requiring BiPAP on and off during day-to-day/at nighttime. Her pressures of 14/6 cm of water with FiO2 of 35. Noted the patient hasn't had anything to eat over the past 3 days since she came in to us to the intensive care unit on 4 da ys ago. I took off the BiPAP and put on oxygen at 4 L nasal cannula. Afebrile. Still antibiotic coverage is empiric. White cell count nonelevated and the patient's cultures are all negative. Objective - Vital Signs Vital signs: Vital Signs Temp 98.2 F 08/29/22 04:00 Pulse 57 L 08/29/22 07:00 Resp 14 08/29/22 07:00 BP 148/78 08/29/22 07:00 Pulse Ox 98 08/29/22 07:00 FiO2 35 08/29/22 07:37 Intake & Output 08/28/22 08/29/22 08/29/22 18:59 06:59 18:59 Intake Total 2211.444 1959.957 295 Output Total 1620 1665 200 Balance 591.444 294.957 95 Weight 108.5 kg 112.4 kg Intake: IV 940 1465 195 0.9 @ 20 240 240 20 Cefepime 2 gm In Sodium 200 100 Chloride 0.9% 100 ml @ 25 mls/hr IVPB Q8HR [facility] Rx# :[id number] Dextrose 5% in Water 1, 200 000 ml @ 100 mls/hr IV . [id number] ONE with Sodium Bicarb (1 Meq/ml) 150 ml Rx#:[id number] Dextrose 5%-0.45% NaCl 1, 825 75 000 ml @ 75 mls/hr IV . [id number] [facility] Rx#:[id number] Potassium Chloride 10 meq 100 100 In Water For Injection 1 100ml.bag @ 100 mls/hr IVPB Q1H [facility] Rx#: [id number] Potassium Chloride 10 meq 100 100 In Water For Injection 1 100ml.bag @ 100 mls/hr IVPB Q1H [facility] Rx#: [id number] metroNIDAZOLE-NS PMX 500 200 100 mg In Saline 1 100ml.bag @ 100 mls/hr IVPB Q8HR [facility] Rx#:[id number] Intake, IV Titration 1271.444 494.957 100 Amount Dexmedetomidine/0.9% NaCl 396.444 344.957 100 (Pmx) 400 mcg In Empty Bag 1 bag @ 0.2 MCG/KG/HR 5.103 mls/hr IV .[id number] [facility] Rx#:[id number] Dextrose 5%-0.45% NaCl 1, 675 150 000 ml @ 75 mls/hr IV . [id number] [facility] Rx#:[id number] Potassium Chloride 10 meq 100 In Water For Injection 1 100ml.bag @ 100 mls/hr IVPB Q1H [facility] Rx#: [id number] Potassium Chloride 10 meq 100 In Water For Injection 1 100ml.bag @ 100 mls/hr IVPB Q1HR [facility] Rx#: [id number] Tube Feeding 0 Output: Urine 1620 1665 200 Other: Voiding Method Indwelling Catheter Indwelling Catheter - Exam Patient is currently somewhat rested and comfortable. Nevertheless, she is having bursts and episodes of agitation.. She is on BiPAP pressures of 14/6 with an FiO2 of 30 % oxygen by nasal cannula She is nonverbal. She is obese with a body mass index of 41.2, this morning and took her off the BiPAP and put her on 5 L of oxygen by nasal cannula. She mumbles, she occasions his words O2. She cannot follow commands. She does not answers questions appropriately. Head exam was generally normal. There was no scleral icterus or corneal arcus. Mucous membranes were moist. Neck was supple and without jugular venous distension, thyromegaly, or carotid bruits. Carotids were easily palpable bilaterally. There was no adenopathy. Lungs sounds are diminished bilaterally and scattered rhonchi heard throughout the lung velazquez bilaterally. Cardiac exam revealed the PMI to be normally situated and sized. The rhythm was regular and no extrasystoles were noted during several minutes of auscultation. The first and second heart sounds were normal and physiologic splitting of the second heart sound was noted. There were no murmurs, rubs, clicks, or gallops. Abdominal exam revealed normal bowel sounds. The abdomen was soft, non-tender, a nd without masses, organomegaly, or appreciable enlargement of the abdominal aorta. Chronic contractures in lower extremities bilaterally. Trace edema. No cyanosis or clubbing. Examination of the skin revealed no evidence of significant rashes, suspicious appearing nevi or other concerning lesions. Neurologic exam is quite limited. The patient has a positive cough and a gag. Pupils are round 3-4 mm in size reactive to light. She does not follow any commands at this point in time. She is moving all 4 extremities without limitation. There is obvious motor weakness lower extremities bilaterally along with chronic contractures. Reflexes are diminished at the present. No Babinski or clonus. No significant neck stiffness at this point in time. As mentioned, she has episodes of extreme agitation especially when stimulated. Minimal amount of touch and stimulation will make this patient Significantly agitation. - Labs CBC & Chem 7: 08/28/22 04:39 08/29/22 04:00 Labs: Abnormal Lab Results - Last 24 Hours (Table) 08/28/22 08/28/22 08/29/22 Range/Units 12:39 14:43 00:22 Potassium (3.5-5.1) mmol/L BUN 6 L (7-17) mg/dL Creatinine 0.36 L (0.52-1.04) mg/dL Glucose 108 H (74-99) mg/dL POC Glucose (mg/dL) 130 H 132 H (70-110) mg/dL Calcium 8.0 L (8.4-10.2) mg/dL 08/29/22 08/29/22 Range/Units 04:00 06:27 Potassium 3.1 L (3.5-5.1) mmol/L BUN 5 L (7-17) mg/dL Creatinine 0.29 L (0.52-1.04) mg/dL Glucose 125 H (74-99) mg/dL POC Glucose (mg/dL) 130 H (70-110) mg/dL Calcium 7.7 L (8.4-10.2) mg/dL Microbiology - Last 24 Hours (Table) 08/25/22 05:45 Blood Culture - Preliminary Blood 08/25/22 05:30 Blood Culture - Preliminary Blood Assessment and Plan Plan: Acute febrile illness, recovered and the patient is currently afebrile covered with empiric antibiotics. Suspect noninfectious cause of fever at time of admission including possibility of a serotonergic syndrome. Acute on chronic encephalopathy/psychosis/delirium.. The patient has worsening in the mentation and she seems to be quite unresponsive at this point in time. Could be related to underlying infection. Also consider the possibility of drug reactions as the patient is on a combination of high-dose Lexapro, Seroquel, and Valium. No clear indication of serotonergic syndrome although this is within the differential diagnosis. The patient continues to have episodes of agitation and encephalopathy. She is current on a combination of Prolixin, Haldol, Valium and Precedex infusion. Probably slightly agitated compared to yesterday. For the most part, she still having episodes of agitation with outbursts especially when she stimulated anti-. Acute shortness of breath, and the patient desaturates during episodes of agitation. Based on that, the patient was kept on a BiPAP at this point in time. She does have features of sleep apnea with significant crowding of posterior pharynx. Chest x-rays clear. She does have features otherwise and she does have upper airway secretions causing episodic oxygen desaturation she improves significantly with BiPAP. Nevertheless, BiPAP is also had a good education. Chest x-ray from yesterday showed no acute abnormalities. She has a weak cough and she has some upper airway secretions. She was transitioned to oxygen by nasal cannula at 4 L. Profound mental retardation Cerebral palsy Seizure disorder Expressive and receptive aphasia Chronic anxiety Hypertension Osteoporosis Urinary incontinence Previous episodes of UTI intermediate resident Plan Continue Precedex , attempted weaning it off Continue Valium 5 mg IV every 12 hours, the dose of 5 mg IV Increase the Prolixin to 5 mg IM every 8 hours Haldol as needed Keep BiPAP for now on enough specially when she desaturates. Suzi essentially discontinue antibiotic coverage Put the patient oxygen nasal cannula Tried to feed with one-to-one supervision Continue Vimpat Continue bronchodilators Continue IV fluids, switch this patient to D5 half-normal saline at the rate of 75 mL an hour Close monitoring with a sitter at the bedside Consults psychiatry. Neurology input is also appreciated DNR/DNI CODE STATUS Heparin subcu portably prophylaxis Kuhn catheter Condition is critical and we'll continue to follow
[2022-08-29] MEDS: flUPHENAZine 2.5 MG/ML (MDV) 10 ML VIAL IM SCH ×3 (07:53→23:38)
[2022-08-29] MEDS: CEFEPIME 2 GM in SODIUM CHLORIDE 0.9% 100 ML IVPB SCH ×3 (08:05→23:42)
[2022-08-29] MEDS: ALBUTEROL NEBULIZED 2.5 MG/3 ML INHALATION SCH ×4 (08:12→19:47)
[2022-08-29] MEDS: metroNIDAZOLE-NS PMX 500 MG in SALINE 1 100ML.BAG IVPB SCH ×3 (08:13→23:42)
--- NOTE | 2022-08-29 09:04 | P.PN ---
Progress Note - Text Progress Note Date: 08/29/22 The patient appears to be less agitated. She is resting. On exam vital signs are stable minimally distended. Resolving ileus. Patient can receive supportive care.
[2022-08-29] MEDS: Lacosamide IV (ages 17+ yrs) 200 MG/20 ML ML IVP SCH (09:23)
[2022-08-29] MEDS: PANTOPRAZOLE 40 MG/10 ML VIAL IVP SCH (09:23)
[2022-08-29] MEDS: HEPARIN SODIUM,PORCINE/PF 5,000 UNIT/0.5 ML SYRINGE SQ SCH ×2 (09:23→20:10)
[2022-08-29] MEDS: DEXTROSE 5%-0.45% NACL 1,000 ML IV SCH (11:25)
--- NOTE | 2022-08-29 13:09 | P.PN ---
Subjective Progress Note Date: 08/29/22 The patient seen at bedside and according to the patient nurse today she was eating a more cooperative than prior. Her caregivers from her nursing facility stated that this is her baseline. Objective - Vital Signs Vital signs: Vital Signs Temp 98.2 F 08/29/22 04:00 Pulse 101 H 08/29/22 11:00 Resp 63 H 08/29/22 11:00 BP 132/74 08/29/22 11:00 Pulse Ox 95 08/29/22 11:00 FiO2 35 08/29/22 07:37 Intake & Output 08/28/22 08/29/22 08/29/22 18:59 06:59 18:59 Intake Total 2211.444 7102.907 1192.631 Output Total 1620 1665 1050 Balance 591.444 294.957 405.631 Weight 108.5 kg 112.4 kg 112.4 kg Intake: IV 940 1465 845 0.9 @ 20 240 240 70 Cefepime 2 gm In Sodium 200 100 100 Chloride 0.9% 100 ml @ 25 mls/hr IVPB Q8HR [facility] Rx# :[id number] Dextrose 5% in Water 1, 200 000 ml @ 100 mls/hr IV . [id number] ONE with Sodium Bicarb (1 Meq/ml) 150 ml Rx#:[id number] Dextrose 5%-0.45% NaCl 1, 825 375 000 ml @ 75 mls/hr IV . [id number] [facility] Rx#:[id number] Potassium Chloride 10 meq 100 100 In Water For Injection 1 100ml.bag @ 100 mls/hr IVPB Q1H [facility] Rx#: [id number] Potassium Chloride 10 meq 100 200 In Water For Injection 1 100ml.bag @ 100 mls/hr IVPB Q1H [facility] Rx#: [id number] metroNIDAZOLE-NS PMX 500 200 100 100 mg In Saline 1 100ml.bag @ 100 mls/hr IVPB Q8HR [facility] Rx#:[id number] Intake, IV Titration 1271.444 494.957 110.631 Amount Dexmedetomidine/0.9% NaCl 396.444 344.957 110.631 (Pmx) 400 mcg In Empty Bag 1 bag @ 0.2 MCG/KG/HR 5.103 mls/hr IV .[id number] [facility] Rx#:[id number] Dextrose 5%-0.45% NaCl 1, 675 150 000 ml @ 75 mls/hr IV . [id number] [facility] Rx#:[id number] Potassium Chloride 10 meq 100 In Water For Injection 1 100ml.bag @ 100 mls/hr IVPB Q1H [facility] Rx#: [id number] Potassium Chloride 10 meq 100 In Water For Injection 1 100ml.bag @ 100 mls/hr IVPB Q1HR [facility] Rx#: [id number] Oral 500 Tube Feeding 0 Output: Urine 1620 1665 1050 Other: Voiding Method Indwelling Catheter Indwelling Catheter Indwelling Catheter - Exam Neuro: Limited because of the patient's the cooperation. Patient is sleeping. No facial weakness. No spontaneous movement. Some of the workup during his hospital visit consisted of: T-max is 103.2 Fahrenheit--resolved White blood cell is 8.3 thousand which is considered normal. Calcium, BUN and creatinine, AST ALT are within normal limits Serum glucose is 91. - Labs CBC & Chem 7: 08/28/22 04:39 08/29/22 04:00 Labs: Abnormal Lab Results - Last 24 Hours (Table) 08/28/22 08/29/22 08/29/22 Range/Units 14:43 00:22 04:00 Potassium 3.1 L (3.5-5.1) mmol/L BUN 6 L 5 L (7-17) mg/dL Creatinine 0.36 L 0.29 L (0.52-1.04) mg/dL Glucose 108 H 125 H (74-99) mg/dL POC Glucose (mg/dL) 132 H (70-110) mg/dL Calcium 8.0 L 7.7 L (8.4-10.2) mg/dL 08/29/22 Range/Units 06:27 Potassium (3.5-5.1) mmol/L BUN (7-17) mg/dL Creatinine (0.52-1.04) mg/dL Glucose (74-99) mg/dL POC Glucose (mg/dL) 130 H (70-110) mg/dL Calcium (8.4-10.2) mg/dL Microbiology - Last 24 Hours (Table) 08/25/22 05:45 Blood Culture - Preliminary Blood 08/25/22 05:30 Blood Culture - Preliminary Blood Assessment and Plan Assessment: Acute febrile illness unknown exact source. Was febrile but normal wbc, and neck seems supple and I feel low suspicion for MAT MAN infection--fever resolved. Encephalopathy due to underlying infection---improved Agitation (baseline)--currently at baseline and more cooperative Acute shortness of breath Developmental delay Cerebral palsy History of seizure Language impairments the patient has a component of both expressive and receptive aphasia Urinary incontinence Hypertension Osteoporosis Chronic anxiety Plan: Since patient is swallowing and cooperative, I restarted the patient's home antiseizure medications: Zonegran 100 mg 1 tablet 3 times a day, Trileptal 300 mg a tablet twice a day as well as 600 mg daily at bedtime. I discontinued the Vimpat 50 mg IV twice a day. Please avoid Keppra since it can cause agitation as well as restlessness. He did not have an EEG during this admission because of her severe agitation and lack of cooperation. Currently she is back to baseline so no need for an EEG. I.D. team is on board and patient is on cefepime, metronidazole. Psychiatry is on board. They have modified medication and placed on Haldol 5mg every 5 hours. We'll defer the rest of medical management to the primary team The plan was discussed with ICU nurse. If patient continues to be doing well and no issues with swallowing and no further seizure then she is clear from a neurologic perspective to be discharged back to her nursing facility Will continue to follow. Dr. Verdugo will start neurology service tomorrow A.M. Time with Patient: Less than 30
[2022-08-29] MEDS: OXcarbazepine 300 MG TAB PO SCH ×3 (14:57→20:11)
[2022-08-29] MEDS: ZONISAMIDE 100 MG CAP PO SCH ×2 (15:07→20:10)
[2022-08-29] MEDS ORDERED: Potassium Replacement Protocol 1 EACH MISC MISCELLANE PRN (18:33)
[2022-08-29] MEDS: hydrALAZINE HCL 20 MG/ML 1 ML VIAL IVP PRN (19:08)
--- NOTE | 2022-08-29 21:30 | P.PN ---
Subjective Progress Note Date: 08/29/22 Principal diagnosis: Sepsis Patient is a 61-year-old female with a past medical history negative for cerebral palsy seizure disorder history of urine incontinence and UTI patient was transferred from [facility] for evaluation of difficulty in breathing apparently the patient was recently admitted and [facility] apparently the patient did have some fecal retention , patient presented with sepsis and concern for possible abdominal source. On today's evaluation that is 08/29/2022, the patient remains to be febrile, patient is hemodynamically stable and is currently on 2 L nasal cannula oxygen , the patient less restless no vomiting or diarrhea has been reported by the nursing staff Objective - Vital Signs Vital signs: Vital Signs Temp 98.2 F 08/29/22 04:00 Pulse 101 H 08/29/22 11:00 Resp 63 H 08/29/22 11:00 BP 132/74 08/29/22 11:00 Pulse Ox 95 08/29/22 11:00 FiO2 35 08/29/22 07:37 Intake & Output 08/28/22 08/29/22 08/29/22 18:59 06:59 18:59 Intake Total 2211.444 0612.359 0616.631 Output Total 1620 1665 1050 Balance 591.444 294.957 405.631 Weight 108.5 kg 112.4 kg Intake: IV 940 1465 845 0.9 @ 20 240 240 70 Cefepime 2 gm In Sodium 200 100 100 Chloride 0.9% 100 ml @ 25 mls/hr IVPB Q8HR [facility] Rx# :[id number] Dextrose 5% in Water 1, 200 000 ml @ 100 mls/hr IV . [id number] ONE with Sodium Bicarb (1 Meq/ml) 150 ml Rx#:[id number] Dextrose 5%-0.45% NaCl 1, 825 375 000 ml @ 75 mls/hr IV . [id number] [facility] Rx#:[id number] Potassium Chloride 10 meq 100 100 In Water For Injection 1 100ml.bag @ 100 mls/hr IVPB Q1H [facility] Rx#: [id number] Potassium Chloride 10 meq 100 200 In Water For Injection 1 100ml.bag @ 100 mls/hr IVPB Q1H [facility] Rx#: [id number] metroNIDAZOLE-NS PMX 500 200 100 100 mg In Saline 1 100ml.bag @ 100 mls/hr IVPB Q8HR [facility] Rx#:[id number] Intake, IV Titration 1271.444 494.957 110.631 Amount Dexmedetomidine/0.9% NaCl 396.444 344.957 110.631 (Pmx) 400 mcg In Empty Bag 1 bag @ 0.2 MCG/KG/HR 5.103 mls/hr IV .[id number] [facility] Rx#:[id number] Dextrose 5%-0.45% NaCl 1, 675 150 000 ml @ 75 mls/hr IV . [id number] [facility] Rx#:[id number] Potassium Chloride 10 meq 100 In Water For Injection 1 100ml.bag @ 100 mls/hr IVPB Q1H [facility] Rx#: [id number] Potassium Chloride 10 meq 100 In Water For Injection 1 100ml.bag @ 100 mls/hr IVPB Q1HR [facility] Rx#: [id number] Oral 500 Tube Feeding 0 Output: Urine 1620 1665 1050 Other: Voiding Method Indwelling Catheter Indwelling Catheter Indwelling Catheter - Exam GENERAL DESCRIPTION: Middle-aged female lying in bed in no distress RESPIRATORY SYSTEM: Unlabored breathing , coarse breath sounds bilaterally HEART: S1 S2 regular rate and rhythm , ABDOMEN: Soft , abdominal distention and tenderness EXTREMITIES: No edema feet - Labs CBC & Chem 7: 08/28/22 04:39 08/29/22 18:00 Labs: Abnormal Lab Results - Last 24 Hours (Table) 08/28/22 08/28/22 08/29/22 Range/Units 12:39 14:43 00:22 Potassium (3.5-5.1) mmol/L BUN 6 L (7-17) mg/dL Creatinine 0.36 L (0.52-1.04) mg/dL Glucose 108 H (74-99) mg/dL POC Glucose (mg/dL) 130 H 132 H (70-110) mg/dL Calcium 8.0 L (8.4-10.2) mg/dL 08/29/22 08/29/22 Range/Units 04:00 06:27 Potassium 3.1 L (3.5-5.1) mmol/L BUN 5 L (7-17) mg/dL Creatinine 0.29 L (0.52-1.04) mg/dL Glucose 125 H (74-99) mg/dL POC Glucose (mg/dL) 130 H (70-110) mg/dL Calcium 7.7 L (8.4-10.2) mg/dL Microbiology - Last 24 Hours (Table) 08/25/22 05:45 Blood Culture - Preliminary Blood 08/25/22 05:30 Blood Culture - Preliminary Blood Assessment and Plan (1) Sepsis Current Visit: Yes Status: Acute Code(s): A41.9 - SEPSIS, UNSPECIFIED ORGANISM SNOMED Code(s): 51069397 Plan: 1patient presented to hospital with sepsis in this patient with the fever tachycardia source possible abdominal as the patient did have a chest x-ray and CT angiogram of the chest did not show any consolidation urine is mildly posi tive and evidence of any cellulitis or joint swelling apparently patient did have significant abdominal distention and tenderness likely abdominal source, CT could not be done because of her clinical condition and the patient is very restless and unable to stay still per the nursing staff 2-patient with multiple antibiotic allergies that would limit the number of antibiotics safe to use 3Patient fever has resolved, the patient blood culture has been negative so far, patient will continue with cefepime and Flagyl as concern for possible intra-abdominal source and monitor clinical course closely Time with Patient: Less than 30
--- NOTE | 2022-08-29 22:03 | P.PN ---
Subjective Progress Note Date: 08/29/22 This is a 61-year-old female who was recently admitted with change in mental status with concerns of possible serotonin syndrome and also febrile with features of sepsis, present on admission possibly secondary to pneumonia. Patient is currently in ICU being closely monitored with multiple medical consultations following. Patient is becoming more alert and combative per nursing staff and currently maintained on Precedex along with Valium and was given Prolixin which is discontinued. Patient currently calm at the moment maintained on the Precedex. Patient continues on IV Ativan with preliminary cu ltures pending and urine culture thus far is negative. Per nursing staff patient is having bowel movements and general surgery was evaluating the patient for possible ileus. CT abdomen was unable to be performed given patient's agitation and is still pending. Patient also continues on BiPAP with FiO2 of 40% and PEEP is 5 and maintaining oxygen saturations above 95%. Patient is currently afebrile. 08/28/2022 Patient continues to be in the ICU using BiPAP currently on 5 L via nasal cannula. Patient continues on Precedex along with multiple sedatives as patient continues to be extremely agitated. Multiple medical consultations following including psychiatry and neurology and patient appears to be somewhat at baseline as patient is frequently agitated and restless and aggressive with [place] at her living facility. Patient is known to be a biter and will also attempt to head butt with extreme agitation. Patient is also continued on multiple antibiotics with infectious disease following an pro-calcitonin has been low white count normal and patient remains afebrile with overall suspicion for infection is low. All cultures thus far remain negative. Chest x-ray shows some vascular congestion. Patient continues to require BiPAP intermittently she desats quickly continuously removing oxygen supply from her face and becomes hypoxic. Patient continues to thrash around and has been receiving IM Haldol. 08/29/2022 Patient continues to be monitored closely in ICU. Patient is currently restrained secondary to pulling at lines. IV precedex is being weaned. Patient is more awake today and has been tolerating oral intake. Able to take oral medications. Neurology has taken patient off the IV vimpat and resumed on oral zonisamide and oral trileptal. Potassium 3.1 today and patient received 5 bags of IV potassium. Cultures remain negative so far and patient remains on IV metro nidazole and IV cefepime. ID is following the patient closely. Heart rate has been increasing throughout the day and is tachycardic in the low 100s. Noted that metoprolol has been on hold as patient was mostly bradycardic in the 50s. Patient has been maintained on clonidine patch and recommend to discontinue and resume metoprolol in the AM. Patient remains on IV fluids with D5 0.45 normal saline at 75 mls/hr. Review of systems: Unable to obtain as patient is nonverbal PHYSICAL EXAMINATION: GENERAL: The patient is alert and oriented x1, Well developed, well nourished. Morbidly obese, currently less agitated maintained on Precedex along with nasal cannula currently although continues to remove frequently during exam HEENT: Pupils are round and equally reacting to light. EOMI. no scleral icterus. No conjunctival pallor. Normocephalic, atraumatic. No pharyngeal erythema. No thyromegaly. Oral mucosa is dry and unkempt CARDIOVASCULAR: S1 and S2 muffled PULMONARY: diminished breath sounds bilaterally with some scattered rhonchi noted. ABDOMEN: soft. Nontender on exam. obese. non-distended, normoactive bowel sounds. No palpable organomegaly. MUSCULOSKELETAL: No joint swelling or deformity. EXTREMITIES: No cyanosis, clubbing, or pedal edema. NEUROLOGICAL: Unable to completely assess as patient is maintained on Precedex and continues to be extremely agitated intermittently, Diffuse weakness SKIN: No rashes. Assessment: Bilateral pneumonia, possibly aspiration, possibly interstitial viral pneumonia with sepsis, present on admission Chronic obstructive pulmonary disease, acute exacerbation Acute hypoxic respiratory failure, secondary to above Change in mental status, acute mental ENCEPHALOPATHY, multifactorial History of cerebral palsy History of seizure disorder Abdominal distention with possible ileus, resolving with recent hospitalization at [facility] for rectal bolus and constipation previous history of multiple urinary tract infections and VRE History of severe anxiety GI prophylaxis DVT prophylaxis No code, no CPR, no vent Plan: Recommend to continue with current medications and management with multiple medical consultations following. Patient is continued in the ICU currently calm although does have increased agitation and aggression toward staff. Patient continues to be on Precedex and does have patient safety manager at bedside and recommend weaning Precedex along with Valium with psychiatry following as well. Infectious disease is following and patient continues on antibiotics in the form of cefepime, Flagyl. Cultures thus far are negative along with pro-calcitonin and will be discussed further with infectious disease about discontinuing antibiotics and cultures remain negative. 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 Patient does have caregivers that normally stay with her and have reported she is quite aggressive with them as well on a daily basis. Patient will continue to be monitored in the ICU patient has been taken off the Bipap and currently on nasal cannula 2L. Labs reviewed and recommend to replace electrolytes per protocol Recommend to resume metoprolol. Patient has been resumed on oral antiseizure medication and the IV vimpat has been discontinued. The impression and plan of care has been dictated by Deysi Bhakta Nurse Practitioner as directed. Dr. Tracy MD I have performed a history and physical examination and medical decision making of this patient, discussed the same with the dictator, and agree with the dictators assessment and plan as written, documented as a scribe. Based on total visit time, I have performed more than 50% of this visit. Objective - Vital Signs Vital signs: Vital Signs Temp 98.2 F 08/29/22 04:00 Pulse 61 08/29/22 09:00 Resp 45 H 08/29/22 09:00 BP 127/69 08/29/22 09:00 Pulse Ox 96 08/29/22 09:00 FiO2 35 08/29/22 07:37 Intake & Output 08/28/22 08/29/22 08/29/22 18:59 06:59 18:59 Intake Total 2211.444 2403.408 4739.631 Output Total 1620 1665 700 Balance 591.444 294.957 335.631 Weight 108.5 kg 112.4 kg Intake: IV 940 1465 675 0.9 @ 20 240 240 50 Cefepime 2 gm In Sodium 200 100 100 Chloride 0.9% 100 ml @ 25 mls/hr IVPB Q8HR [facility] Rx# :[id number] Dextrose 5% in Water 1, 200 000 ml @ 100 mls/hr IV . [id number] ONE with Sodium Bicarb (1 Meq/ml) 150 ml Rx#:[id number] Dextrose 5%-0.45% NaCl 1, 825 225 000 ml @ 75 mls/hr IV . [id number] [facility] Rx#:[id number] Potassium Chloride 10 meq 100 100 In Water For Injection 1 100ml.bag @ 100 mls/hr IVPB Q1H [facility] Rx#: [id number] Potassium Chloride 10 meq 100 200 In Water For Injection 1 100ml.bag @ 100 mls/hr IVPB Q1H [facility] Rx#: [id number] metroNIDAZOLE-NS PMX 500 200 100 100 mg In Saline 1 100ml.bag @ 100 mls/hr IVPB Q8HR [facility] Rx#:[id number] Intake, IV Titration 1271.444 494.957 110.631 Amount Dexmedetomidine/0.9% NaCl 396.444 344.957 110.631 (Pmx) 400 mcg In Empty Bag 1 bag @ 0.2 MCG/KG/HR 5.103 mls/hr IV .[id number] [facility] Rx#:[id number] Dextrose 5%-0.45% NaCl 1, 675 150 000 ml @ 75 mls/hr IV . [id number] [facility] Rx#:[id number] Potassium Chloride 10 meq 100 In Water For Injection 1 100ml.bag @ 100 mls/hr IVPB Q1H [facility] Rx#: [id number] Potassium Chloride 10 meq 100 In Water For Injection 1 100ml.bag @ 100 mls/hr IVPB Q1HR [facility] Rx#: [id number] Oral 250 Tube Feeding 0 Output: Urine 1620 1665 700 Other: Voiding Method Indwelling Catheter Indwelling Catheter Indwelling Catheter - Labs CBC & Chem 7: 08/28/22 04:39 08/29/22 18:00 Labs: Abnormal Lab Results - Last 24 Hours (Table) 08/28/22 08/28/22 08/29/22 Range/Units 12:39 14:43 00:22 Potassium (3.5-5.1) mmol/L BUN 6 L (7-17) mg/dL Creatinine 0.36 L (0.52-1.04) mg/dL Glucose 108 H (74-99) mg/dL POC Glucose (mg/dL) 130 H 132 H (70-110) mg/dL Calcium 8.0 L (8.4-10.2) mg/dL 08/29/22 08/29/22 Range/Units 04:00 06:27 Potassium 3.1 L (3.5-5.1) mmol/L BUN 5 L (7-17) mg/dL Creatinine 0.29 L (0.52-1.04) mg/dL Glucose 125 H (74-99) mg/dL POC Glucose (mg/dL) 130 H (70-110) mg/dL Calcium 7.7 L (8.4-10.2) mg/dL Microbiology - Last 24 Hours (Table) 08/25/22 05:45 Blood Culture - Preliminary Blood 08/25/22 05:30 Blood Culture - Preliminary Blood Assessment and Plan Time with Patient: Less than 30
[2022-08-30] MEDS: DEXTROSE 5%-0.45% NACL 1,000 ML IV SCH (00:19)
[2022-08-30] MEDS: hydrALAZINE HCL 20 MG/ML 1 ML VIAL IVP PRN (00:26)
[2022-08-30] MEDS: HALOPERIDOL LACTATE 5 MG/ML 1 ML VIAL IM PRN (00:32)
[2022-08-30] MEDS: POTASSIUM CHLORIDE 10 MEQ in WATER FOR INJECTION 1 100ML.BAG IVPB SCH ×5 (04:02→15:12)
[2022-08-30 06:34] LABS: HCT 31.6 % (34.0-46.0); HGB 10.5 gm/dL (11.4-16.0); MCH 27.2 pg (25.0-35.0); MCV 82.3 fL (80.0-100.0); Mean Platelet Volume 7.7; Platelet Count 181 k/uL (150-450); RBC 3.84 m/uL (3.80-5.40); RDW 15.8 % (11.5-15.5); WBC 4.4 k/uL (3.8-10.6)
[2022-08-30 06:41] LABS: ALT 20 U/L (4-34); AST 29 U/L (14-36); African American GFR (CKD) >90 (>60 ml/min/1.73 sqM); Albumin 2.9 g/dL (3.5-5.0); Alkaline Phosphatase 65 U/L (38-126); Anion Gap 6 mmol/L; Blood Urea Nitrogen 3 mg/dL (7-17); Calcium 8.3 mg/dL (8.4-10.2); Carbon Dioxide 29 mmol/L (22-30); Chloride 105 mmol/L (98-107); Glucose 108 mg/dL (74-99); Non-African American GFR(CKD) >90 (>60 ml/min/1.73 sqM); Potassium 3.4 mmol/L (3.5-5.1); Sodium 140 mmol/L (137-145); Total Bilirubin 0.9 mg/dL (0.2-1.3); Total Protein 5.5 g/dL (6.3-8.2)
[2022-08-30] MEDS: METOPROLOL TARTRATE 25 MG TAB PO SCH ×2 (07:09→21:16)
[2022-08-30] MEDS: ZONISAMIDE 100 MG CAP PO SCH ×3 (07:09→21:16)
[2022-08-30] MEDS: ALBUTEROL NEBULIZED 2.5 MG/3 ML INHALATION SCH ×4 (07:49→19:47)
--- NOTE | 2022-08-30 07:59 | P.PN ---
Subjective Progress Note Date: 08/30/22 This is a 61-year-old female patient with obvious developmental delay. Transferred from [facility] to our emergency department because of difficulty breathing. The patient was seen in the ED by Dr. Jorge Karimi and Dr. Josh Moffett. Unfortunately, that efforts in obtaining more information on this patient with extremely limited as the patient was nonverbal and noncommunicative. The patient resides in a nursing home and she started having the shortness of breath and fever. This started a few days back. The patient was seen in the emergency department at [facility] and following that the patient got transferred to us. In the emergency, the patient was given a chest x-ray and a CT angiogram. There was no evidence of any acute pulmonary abnormalities. There was no evidence of any pulmonary embolism. The blood work showed a WBC count of 8.3 with a hemoglobin 12.4 and a platelet count of 181. BUN was 15 with a creatinine of 0.59 his sodium level is at 135. Blood sugars at 91. The patient was admitted to the medical floor. I was asked to transfer this patient to the ICU as the patient become more unresponsive and more tachypneic. I reviewed her medical records. I also communicated with a person in charge of the nursing home. She has a prolonged history of multiple medical problems and comorbidities. She has profound mental retardation and she has cerebral palsy. She has history of seizure disorder. She has chronic anxiety. She has been incontinent and she has also had issues with expressive and receptive aphasia and language disorder. She has issues with chronic hypertension, osteoporosis and chronic anemia. I also reviewed her medication which is quite extensive. No history of any chronic lung disease. No seizure activity at the nursing home. She was having fever and the temperature was as high as 103 at the emergency department. No reported head trauma. No reported falls. No injuries. I came to find other that she patient is prone to have U TIs. A UA has been done in our emergency department. The white cell count is at 16 with a RBC of 8 and there is some trace protein. Covid 19 testing was negative. Influenza screen was negative. RSV screen was negative. Troponins were negative. LFTs were within normal limits. Blood sugars at 142. On today's evaluation of 08/26/2022, the patient seems to be more stable in terms of her breathing compared to yesterday. She was taken off the BiPAP this morning. Overnight, she was kept on a BiPAP at pressure 14/6 cm of water were notified to 35%. Currently she is taken off the BiPAP and she is only on 2 L of Oxymizer nasal cannula and her pulse ox is 95%. She does not seem to have any labored breathing. As mentioned, she has mental retardation, cerebral palsy, history of seizures and episodic bursts of agitation. She was taken a combination of Seroquel, Lexapro and Valium on outpatient basis. She was also on Trileptal. In terms of her seizure medication, this was switched to Keppra by neurology. The patient is afebrile for now. Cultures are negative. No significant leukocytosis. The patient is covered with accommodation of cefepime and Flagyl and vancomycin per ID recommendations. Hemodynamically stable. No significant tachycardia. Urine output is adequate. The patient is on Precedex which is at the maximal dose of 1.4 mcg/kg/m. At the same time, the patient is on IV fluids with normal saline at the rate of 100 mL an hour.The WBC count is at 3.9 with a hemoglobin of 10.7 and a platelet count of 132. The sodium is at 136, BUN is at 14 with a creatinine of 0.36. Serum bicarbs of 19. LFTs are normal. Cultures are still negative. Pro-calcitonin level is pending. Chest x-rays rotated. Nevertheless, no acute abnormalities are seen on today's chest x-ray. On 08/27/2022, the patient is still having episodes of agitation. She goes calm for quite some time and subsequently, she gets quite agitated, pulled on her mask and tubes and she tries jumping out of the bed. The patient during this episodes of agitation, she becomes also hypoxic and tachypneic and she desaturates. We thought that she could've at an episode of aspiration yesterday. Nevertheless, the chest x-ray from today is clear. Overnight, she was kept on a BiPAP at a pressure of 14/6 cm of water and FiO2 of 40%. Her current pulse ox 94% which is having scattered rhonchi on today's examination. She is on Precedex which is running at 1.4 mcg/kg/m and she is maxed out on the dosage. She is also taken Prolixin 2.5 mg IM every 12 hours and she is also on Valium 5 mg IV every 12 hours which is also on Haldol 5 mg IM 4 times a day. No fever. Hemodynamically stable and the patient is not having any hypotension. No seizure has been noted and the patient remains on IV Keppra. On her blood work, she has developed no significant leukocytosis. However, she has a component of melena negative metabolic acidosis with a serum bicarb is down to 17. She's currently on normal saline at the rate of 100 mL an hour. The pro- calcitonin level was sent yesterday and the level is at 0.15. BUN is at 12 with a creatinine of 0.4. Cultures are negative. She's covered with broad-spectrum antibiotics for now including cefepime, Flagyl and vancomycin. On today's evaluation of 08/28/2022, the patient's continues to be agitated and delirious. Unfortunately, she continues to have this episodes of significant agitation, restlessness, kicking and pulling and using her arms reaching out and grabbing and punching the nurses. She cannot communicate. She is known to have mental retardation due to cerebral palsy. She remains on Precedex at 1.4 mcg/kg/m. She remains on IV Valium 5 mg every 12 hours. She was also given a higher dose of Prolixin 5 mg IM every 6 hours pH is also receiving Haldol and a when necessary basis. On and off, she still requiring BiPAP for respiratory support. She does have upper airway secretions and she does have features of obstructive sleep apnea and whenever she is in sleep, she may episodic to desaturate and for that reason she is being supported with a BiPAP at a pressure of 14/6 with an FiO2 of 30%. I believe that BiPAP is sometimes also increasing to education. She remains nothing by mouth. IV fluids are running in the order of bicarb infusion at the rate of 100 mL an hour. Urine output is in order of 50 mL an hour. She is afebrile. Hemodynamically stable. She is covered with broad-spectrum antibiotics including a combination of cefepime, Flagyl and vancomycin. Cultures have been negative for now. Blood work shows a WBC count of 4.8, hemoglobin of 10.5 and a platelet count of 150. Sodium is at 137, potassium is at 3.4, BUN is at 10 with a creatinine of 0.34 and a serum bicarbs at 21. Electrolytes are normal. Neurology is on the case. Psychiatric is on the case. Their input is appreciated. On 08/29/2022, clinically unchanged, essentially not doing a lot of progress as the patient still gets episodes of agitation, tries to reach to oxygen masks and cannula, tries to reach out to the nurses, headaches, yells, and these at all, episodes especially if she gets stimulated. Unfortunately, this has not some . She remains on Precedex at a high dose of 1.4 mcg/kg/m. She remains on Prolixin 5 mg IV every 8 hours. She is taken Haldol as needed. She is also on Valium 5 mg IV every 12 hours. Neurologic exam is nonfocal. She is on Vimpat for seizure control. Electrolytes are all within normal on today's evaluation. Chest x-ray from yesterday showed no acute abnormalities. The patient has some increased pulmonary vascular markings. Meanwhile, she is requiring BiPAP on and off during day-to-day/at nighttime. Her pressures of 14/6 cm of water with FiO2 of 35. Noted the patient hasn't had anything to eat over the past 3 days since she came in to us to the intensive care unit on 4 da ys ago. I took off the BiPAP and put on oxygen at 4 L nasal cannula. Afebrile. Still antibiotic coverage is empiric. White cell count nonelevated and the patient's cultures are all negative. On today's evaluation of 08/30/2022, the patient seems to much more comfortable. She was taken off the BiPAP. She was taken off the nasal cannula and she is tolerating diet and she is being fed by the nursing staff here in the ICU. She was also taken off the Precedex and we're using essentially combination of Valium and Prolixin regarding of agitation which is essentially improved. No seizure activity has been noted and the patient remains on broad-spectrum antibiotics per IDs recommendations. WBC was 4.4 with a hemoglobin of 10.5 and a platelet count of 181. BUN is at 3 with a creatinine of 0.38 and a sodium level is at 140. All of the cultures are negative and the patient is afebrile. Objective - Vital Signs Vital signs: Vital Signs Temp 99.0 F 08/30/22 04:00 Pulse 89 08/30/22 07:00 Resp 13 08/30/22 07:00 BP 161/85 08/30/22 07:00 Pulse Ox 94 L 08/30/22 04:00 FiO2 35 08/29/22 07:37 Intake & Output 08/29/22 08/30/22 08/30/22 18:59 06:59 18:59 Intake Total 2470.631 1375 100 Output Total 2775 3295 200 Balance -304.369 -1920 -100 Weight 112.4 kg 107.3 kg Intake: IV 1620 1375 100 0.9 @ 20 120 50 Cefepime 2 gm In Sodium 200 100 Chloride 0.9% 100 ml @ 25 mls/hr IVPB Q8HR [facility] Rx# :[id number] Dextrose 5%-0.45% NaCl 1, 900 825 000 ml @ 75 mls/hr IV . [id number] [facility] Rx#:[id number] Potassium Chloride 10 meq 100 100 In Water For Injection 1 100ml.bag @ 100 mls/hr IVPB Q1H [facility] Rx#: [id number] Potassium Chloride 10 meq 200 200 In Water For Injection 1 100ml.bag @ 100 mls/hr IVPB Q1H [facility] Rx#: [id number] metroNIDAZOLE-NS PMX 500 200 100 mg In Saline 1 100ml.bag @ 100 mls/hr IVPB Q8HR [facility] Rx#:[id number] Intake, IV Titration 110.631 Amount Dexmedetomidine/0.9% NaCl 110.631 (Pmx) 400 mcg In Empty Bag 1 bag @ 0.2 MCG/KG/HR 5.103 mls/hr IV .[id number] [facility] Rx#:[id number] Oral 740 Output: Urine 2775 3295 200 Other: Voiding Method Indwelling Catheter Indwelling Catheter # Bowel Movements 1 - Exam Patient is currently somewhat rested and comfortable. No significant agitation this morning and the patient is currently on room air oxygen. Head exam was generally normal. There was no scleral icterus or corneal arcus. Mucous membranes were moist. Neck was supple and without jugular venous distension, thyromegaly, or carotid bruits. Carotids were easily palpable bilaterally. There was no adenopathy. Lungs sounds are diminished bilaterally and scattered rhonchi heard throughout the lung velazquez bilaterally. Cardiac exam revealed the PMI to be normally situated and sized. The rhythm was regular and no extrasystoles were noted during several minutes of auscultation. The first and second heart sounds were normal and physiologic splitting of the second heart sound was noted. There were no murmurs, rubs, clicks, or gallops. Abdominal exam revealed normal bowel sounds. The abdomen was soft, non-tender, and without masses, organomegaly, or appreciable enlargement of the abdominal aorta. Chronic contractures in lower extremities bilaterally. Trace edema. No cyanosis or clubbing. Examination of the skin revealed no evidence of significant rashes, suspicious appearing nevi or other concerning lesions. Neurologic exam is quite limited. The patient has a positive cough and a gag. Pupils are round 3-4 mm in size reactive to light. She does not follow any commands at this point in time. She is moving all 4 extremities without limitation. There is obvious motor weakness lower extremities bilaterally along with chronic contractures. Reflexes are diminished at the present. No Babinski or clonus. No significant neck stiffness at this point in time. As mentioned, she has episodes of extreme agitation especially when stimulated. Minimal amount of touch and stimulation will make this patient Significantly agitation. The agitation episodes have improved since yesterday and the patient seems to much more comfortable - Labs CBC & Chem 7: 08/30/22 05:57 08/30/22 05:57 Labs: Abnormal Lab Results - Last 24 Hours (Table) 08/29/22 08/30/22 08/30/22 Range/Units 18:00 05:57 05:57 Hgb 10.5 L (11.4-16.0) gm/dL Hct 31.6 L (34.0-46.0) % RDW 15.8 H (11.5-15.5) % Potassium 3.3 L 3.4 L (3.5-5.1) mmol/L BUN 3 L (7-17) mg/dL Creatinine 0.38 L (0.52-1.04) mg/dL Glucose 108 H (74-99) mg/dL Calcium 8.3 L (8.4-10.2) mg/dL C-Reactive Protein 9.0 H (<1.0) mg/dL Total Protein 5.5 L (6.3-8.2) g/dL Albumin 2.9 L (3.5-5.0) g/dL Microbiology - Last 24 Hours (Table) 08/25/22 05:45 Blood Culture - Preliminary Blood 08/25/22 05:30 Blood Culture - Preliminary Blood Assessment and Plan Plan: Acute febrile illness, recovered and the patient is currently afebrile covered with empiric antibiotics. Suspect noninfectious cause of fever at time of admission including possibility of a serotonergic syndrome. Fever has recovered. IV is still cover the patient with antibiotics. I do question underlying infections. I suspect this was essentially drug induced fever. Acute on chronic encephalopathy/psychosis/delirium.. The patient has worsening in the mentation and she seems to be quite unresponsive at this point in time. Could be related to underlying infection. Also consider the possibility of drug reactions as the patient is on a combination of high-dose Lexapro, Seroquel, and Valium. No clear indication of serotonergic syndrome although this is within the differential diagnosis. The patient continues to have episodes of agitation and encephalopathy. She is current on a combination of Prolixin, Haldol, Valium and Precedex infusion. Over the past 24 hours, the agitation and encephalopathy seems to have improved. The patient was taken off the Precedex and we are encountering less episodes of agitation. Acute shortness of breath, and the patient desaturates during episodes of agitation. Patient has recovered and the patient is currently on room air oxygen. Profound mental retardation Cerebral palsy Seizure disorder Expressive and receptive aphasia Chronic anxiety Hypertension Osteoporosis Urinary incontinence Previous episodes of UTI detention resident Plan Discontinue Precedex Discontinue IV fluids as the patient is tolerating diet Switch Valium 2 her usual doses of 5 mg by mouth 3 times a day Continue Prolixin to 5 mg IM every 8 hours Haldol as needed Patient is currently on room air oxygen Suzi essentially discontinue antibiotic coverage, will discuss with ID Tried to feed with one-to-one supervision Continue Vimpat Continue bronchodilators We'll need to discuss again with secondary regarding adjustment on her psychiatric medication. I believe there was an interaction between her previous medications Close monitoring with a sitter at the bedside Consults psychiatry. Neurology input is also appreciated DNR/DNI CODE STATUS Heparin subcu portably prophylaxis Kuhn catheter Condition is critical and we'll continue to follow
[2022-08-30 08:08] LABS: Eosinophils # (M) 0.09 k/uL (0-0.7); Lymphocytes # (M) 1.54 k/uL (1.0-4.8); Monocytes # (M) 0.13 k/uL (0-1.0); Neutrophils # (M) 2.64 k/uL (1.3-7.7); Neutrophils % (M) 60 %; Nucleated Red Blood Cells 0 /100 WBC (0-0); Poikilocytosis (M) Present; Total Cells Counted 100
[2022-08-30] MEDS: metroNIDAZOLE-NS PMX 500 MG in SALINE 1 100ML.BAG IVPB SCH ×2 (09:23→15:30)
[2022-08-30] MEDS: CEFEPIME 2 GM in SODIUM CHLORIDE 0.9% 100 ML IVPB SCH ×2 (09:23→15:16)
[2022-08-30] MEDS: diazePAM 5 MG TAB PO SCH ×3 (09:36→21:15)
[2022-08-30] MEDS: PANTOPRAZOLE 40 MG/10 ML VIAL IVP SCH (09:36)
[2022-08-30] MEDS: HEPARIN SODIUM,PORCINE/PF 5,000 UNIT/0.5 ML SYRINGE SQ SCH ×2 (09:36→21:16)
[2022-08-30] MEDS: OXcarbazepine 300 MG TAB PO SCH ×3 (09:38→21:16)
--- NOTE | 2022-08-30 12:10 | P.PN ---
Progress Note - Text Progress Note Date: 08/30/22 Patient appears to be more alert today. She is resting comfortably in chair. She's been tolerating a regular diet. On exam vital signs appear stable. Abdomen soft. Resolved ileus. Patient to receive supportive care.
--- NOTE | 2022-08-30 16:04 | P.PN ---
Subjective Progress Note Date: 08/30/22 Principal diagnosis: Sepsis Patient is a 61-year-old female with a past medical history negative for cerebral palsy seizure disorder history of urine incontinence and UTI patient was transferred from [facility] for evaluation of difficulty in breathing apparently the patient was recently admitted and [facility] apparently the patient did have some fecal retention , patient presented with sepsis and concern for possible abdominal source. On today's evaluation that is 08/30/2022, the patient continues to be febrile, patient is hemodynamically stable not requiring any pressor support, the patient is less restless and is currently on room air, no vomiting or diarrhea has been reported by the nursing staff Objective - Vital Signs Vital signs: Vital Signs Temp 96.8 F L 08/30/22 08:00 Pulse 70 08/30/22 11:00 Resp 22 08/30/22 11:00 BP 111/65 08/30/22 11:00 Pulse Ox 95 08/30/22 11:00 FiO2 35 08/29/22 07:37 Intake & Output 08/29/22 08/30/22 08/30/22 18:59 06:59 18:59 Intake Total 2470.631 1375 575 Output Total 2775 3295 510 Balance -304.369 -1920 65 Weight 112.4 kg 107.3 kg Intake: IV 1620 1375 325 0.9 @ 20 120 50 Cefepime 2 gm In Sodium 200 100 25 Chloride 0.9% 100 ml @ 25 mls/hr IVPB Q8HR [facility] Rx# :[id number] Dextrose 5%-0.45% NaCl 1, 900 825 100 000 ml @ 75 mls/hr IV . [id number] [facility] Rx#:[id number] Potassium Chloride 10 meq 100 100 In Water For Injection 1 100ml.bag @ 100 mls/hr IVPB Q1H [facility] Rx#: [id number] Potassium Chloride 10 meq 200 200 In Water For Injection 1 100ml.bag @ 100 mls/hr IVPB Q1H [facility] Rx#: [id number] metroNIDAZOLE-NS PMX 500 200 100 100 mg In Saline 1 100ml.bag @ 100 mls/hr IVPB Q8HR [facility] Rx#:[id number] Intake, IV Titration 110.631 Amount Dexmedetomidine/0.9% NaCl 110.631 (Pmx) 400 mcg In Empty Bag 1 bag @ 0.2 MCG/KG/HR 5.103 mls/hr IV .[id number] [facility] Rx#:[id number] Oral 740 250 Output: Urine 9104 4658 510 Other: Voiding Method Indwelling Catheter Indwelling Catheter Indwelling Catheter # Bowel Movements 1 - Exam GENERAL DESCRIPTION: Middle-aged female lying in bed in no distress RESPIRATORY SYSTEM: Unlabored breathing , coarse breath sounds bilaterally HEART: S1 S2 regular rate and rhythm , ABDOMEN: Soft , abdominal distention and tenderness EXTREMITIES: No edema feet - Labs CBC & Chem 7: 08/30/22 05:57 08/30/22 05:57 Labs: Abnormal Lab Results - Last 24 Hours (Table) 08/29/22 08/30/22 08/30/22 Range/Units 18:00 05:57 05:57 Hgb 10.5 L (11.4-16.0) gm/dL Hct 31.6 L (34.0-46.0) % RDW 15.8 H (11.5-15.5) % Potassium 3.3 L 3.4 L (3.5-5.1) mmol/L BUN 3 L (7-17) mg/dL Creatinine 0.38 L (0.52-1.04) mg/dL Glucose 108 H (74-99) mg/dL Calcium 8.3 L (8.4-10.2) mg/dL C-Reactive Protein 9.0 H (<1.0) mg/dL Total Protein 5.5 L (6.3-8.2) g/dL Albumin 2.9 L (3.5-5.0) g/dL Microbiology - Last 24 Hours (Table) 08/25/22 05:45 Blood Culture - Final Blood 08/25/22 05:30 Blood Culture - Final Blood Assessment and Plan (1) Sepsis Current Visit: Yes Status: Acute Code(s): A41.9 - SEPSIS, UNSPECIFIED ORGANISM SNOMED Code(s): 83800705 Plan: 1patient presented to hospital with sepsis in this patient with the fever tachycardia source possible abdominal as the patient did have a chest x-ray and CT angiogram of the chest did not show any consolidation urine is mildly positive and evidence of any cellulitis or joint swelling apparently patient did have significant abdominal distention and tenderness likely abdominal source, CT could not be done because of her clinical condition and the patient is very restless and unable to stay still per the nursing staff 2-patient with multiple antibiotic allergies that would limit the number of antibiotics safe to use 3Patient fever has resolved, the patient blood culture has been negative so far, patient will benefit from a CT abdominal pelvis in view of overall improvement in her mental any clinical condition, continue cefepime and Flagyl, discussed care with the RN Time with Patient: Less than 30
[2022-08-30 16:42] LABS: Glucose,Whole Blood 96 mg/dL (70-110)
[2022-08-30] MEDS ORDERED: KETOTIFEN 0.025% OPHTH DROPS 5 ML BTL BOTH EYES PRN (16:43)
--- NOTE | 2022-08-30 16:53 | P.PN ---
Subjective Progress Note Date: 08/30/22 This is a 61-year-old female who was recently admitted with change in mental status with concerns of possible serotonin syndrome and also febrile with features of sepsis, present on admission possibly secondary to pneumonia. Patient is currently in ICU being closely monitored with multiple medical consultations following. Patient is becoming more alert and combative per nursing staff and currently maintained on Precedex along with Valium and was given Prolixin which is discontinued. Patient currently calm at the moment maintained on the Precedex. Patient continues on IV Ativan with preliminary cu ltures pending and urine culture thus far is negative. Per nursing staff patient is having bowel movements and general surgery was evaluating the patient for possible ileus. CT abdomen was unable to be performed given patient's agitation and is still pending. Patient also continues on BiPAP with FiO2 of 40% and PEEP is 5 and maintaining oxygen saturations above 95%. Patient is currently afebrile. 08/28/2022 Patient continues to be in the ICU using BiPAP currently on 5 L via nasal cannula. Patient continues on Precedex along with multiple sedatives as patient continues to be extremely agitated. Multiple medical consultations following including psychiatry and neurology and patient appears to be somewhat at baseline as patient is frequently agitated and restless and aggressive with s [place] at her living facility. Patient is known to be a biter and will also attempt to head butt with extreme agitation. Patient is also continued on multiple antibiotics with infectious disease following an pro-calcitonin has been low white count normal and patient remains afebrile with overall suspicion for infection is low. All cultures thus far remain negative. Chest x-ray shows some vascular congestion. Patient continues to require BiPAP intermittently she desats quickly continuously removing oxygen supply from her face and becomes hypoxic. Patient continues to thrash around and has been receiving IM Haldol. 08/29/2022 Patient continues to be monitored closely in ICU. Patient is currently restrained secondary to pulling at lines. IV precedex is being weaned. Patient is more awake today and has been tolerating oral intake. Able to take oral medications. Neurology has taken patient off the IV vimpat and resumed on oral zonisamide and oral trileptal. Potassium 3.1 today and patient received 5 bags of IV potassium. Cultures remain negative so far and patient remains on IV metro nidazole and IV cefepime. ID is following the patient closely. Heart rate has been increasing throughout the day and is tachycardic in the low 100s. Noted that metoprolol has been on hold as patient was mostly bradycardic in the 50s. Patient has been maintained on clonidine patch and recommend to discontinue and resume metoprolol in the AM. Patient remains on IV fluids with D5 0.45 normal saline at 75 mls/hr. 08/30/2022 Patient is evaluated today in the ICU. Remains in soft wrist restraints with project safety manager at the bedside appears less agitated than yesterday. Has some scattered ronchi on exam. Tolerating diet and has been resumed on oral antiseizure medications. Heart rate down in the 70s and blood pressure has improved to 117/50. Neurology and psychiatry are following. Patient is off the IV precedex. Linaclotide, escitalopram and aripiprazole remain on hold. Caregivers feel patient is back to baseline. Remains on IV cefepime and IV metronidazole. ID is following. Review of systems: Unable to obtain as patient is nonverbal PHYSICAL EXAMINATION: GENERAL: The patient is alert and oriented x1, Well developed, well nourished. Morbidly obese, currently less agitated maintained on Precedex along with nasal cannula currently although continues to remove frequently during exam HEENT: Pupils are round and equally reacting to light. EOMI. no scleral icterus. No conjunctival pallor. Normocephalic, atraumatic. No pharyngeal erythema. No thyromegaly. Oral mucosa is dry and unkempt CARDIOVASCULAR: S1 and S2 muffled PULMONARY: diminished breath sounds bilaterally with some scattered rhonchi noted. ABDOMEN: soft. Nontender on exam. obese. non-distended, normoactive bowel sounds. No palpable organomegaly. MUSCULOSKELETAL: No joint swelling or deformity. EXTREMITIES: No cyanosis, clubbing, or pedal edema. NEUROLOGICAL: Unable to completely assess as patient is maintained on Precedex and continues to be extremely agitated intermittently, Diffuse weakness SKIN: No rashes. Assessment: Bilateral pneumonia, possibly aspiration, possibly interstitial viral pneumonia with sepsis, present on admission Chronic obstructive pulmonary disease, acute exacerbation Acute hypoxic respiratory failure, secondary to above weaned to room air. Change in mental status, acute mental ENCEPHALOPATHY, multifactorial History of cerebral palsy History of seizure disorder Abdominal distention with possible ileus, resolving with recent hospitalization at [facility] for rectal bolus and constipation resolving. previous history of multiple urinary tract infections and VRE History of severe anxiety GI prophylaxis DVT prophylaxis No code, no CPR, no vent Plan: Continues in intensive care unit with project safety manager and soft restraints. Less agitated today and transitioned off IV medications. Linaclotide, escitalopram and aripiprazole remain on hold. Psychiatry and neurology are following. Infectious disease is following and patient continues on antibiotics in the form of cefepime, Flagyl. Cultures thus far are negative along with pro-calcitonin. Patient does have caregivers that normally stay with her and have reported she is quite aggressive with them as well on a daily basis. Currently caregivers report patient appears to be at baseline. Patient will continue to be monitored in the ICU patient has been taken off the Bipap and weaned to room air. Labs reviewed and recommend to replace electrolytes per protocol The impression and plan of care has been dictated by Deysi Bhakta Nurse Practitioner as directed. Dr. Tracy MD I have performed a history and physical examination and medical decision making of this patient, discussed the same with the dictator, and agree with the dictators assessment and plan as written, documented as a scribe. Based on total visit time, I have performed more than 50% of this visit. Objective - Vital Signs Vital signs: Vital Signs Temp 97.9 F 08/30/22 12:00 Pulse 74 08/30/22 15:00 Resp 20 08/30/22 15:00 BP 117/50 08/30/22 15:00 Pulse Ox 95 08/30/22 15:00 FiO2 35 08/29/22 07:37 Intake & Output 08/29/22 08/30/22 08/30/22 18:59 06:59 18:59 Intake Total 2470.631 1375 825 Output Total 2775 3295 760 Balance -304.369 -1920 65 Weight 112.4 kg 107.3 kg Intake: IV 1620 1375 575 0.9 @ 20 120 50 Cefepime 2 gm In Sodium 200 100 100 Chloride 0.9% 100 ml @ 25 mls/hr IVPB Q8HR [facility] Rx# :[id number] Dextrose 5%-0.45% NaCl 1, 900 825 75 000 ml @ 75 mls/hr IV . [id number] [facility] Rx#:[id number] Potassium Chloride 10 meq 100 100 In Water For Injection 1 100ml.bag @ 100 mls/hr IVPB Q1H [facility] Rx#: [id number] Potassium Chloride 10 meq 200 200 200 In Water For Injection 1 100ml.bag @ 100 mls/hr IVPB Q1H [facility] Rx#: [id number] metroNIDAZOLE-NS PMX 500 200 100 100 mg In Saline 1 100ml.bag @ 100 mls/hr IVPB Q8HR [facility] Rx#:[id number] Intake, IV Titration 110.631 Amount Dexmedetomidine/0.9% NaCl 110.631 (Pmx) 400 mcg In Empty Bag 1 bag @ 0.2 MCG/KG/HR 5.103 mls/hr IV .[id number] [facility] Rx#:[id number] Oral 740 250 Output: Urine 2775 6775 760 Other: Voiding Method Indwelling Catheter Indwelling Catheter Indwelling Catheter # Bowel Movements 1 2 - Labs CBC & Chem 7: 08/30/22 05:57 08/30/22 05:57 Labs: Abnormal Lab Results - Last 24 Hours (Table) 08/29/22 08/30/22 08/30/22 Range/Units 18:00 05:57 05:57 Hgb 10.5 L (11.4-16.0) gm/dL Hct 31.6 L (34.0-46.0) % RDW 15.8 H (11.5-15.5) % Potassium 3.3 L 3.4 L (3.5-5.1) mmol/L BUN 3 L (7-17) mg/dL Creatinine 0.38 L (0.52-1.04) mg/dL Glucose 108 H (74-99) mg/dL Calcium 8.3 L (8.4-10.2) mg/dL C-Reactive Protein 9.0 H (<1.0) mg/dL Total Protein 5.5 L (6.3-8.2) g/dL Albumin 2.9 L (3.5-5.0) g/dL Microbiology - Last 24 Hours (Table) 08/25/22 05:45 Blood Culture - Final Blood 08/25/22 05:30 Blood Culture - Final Blood Assessment and Plan Time with Patient: Less than 30
--- NOTE | 2022-08-30 19:30 | P.PN ---
Progress Note - Text Progress Note Date: 08/30/22 PSYCHIATRY follow-up note: Interval history: Nurse called and we discussed patient's medications, to decreasing Prolixin to 2.5 mg BID and changing Valium 5 mg IV Q12H to 5 mg po TID. I evaluated patient and she was found awake in bed but is nonverbal and does not respond to direction from me, just looks ahead while she awaits nurse. Nurse reports no agitation today and patient is awake and more alert since adjusting her medications earlier today. Patient is compliant with medications. No side effects reported or observed. Mental status exam: General Appearance: Patient appears to be stated age, obese female, leaning on her side with staff at bedside. Behavior: No agitated behavior. Patient is calm. Speech: Nonverbal. Mood/Affect: Unable to assess. Suicidality/Homicidality: Unable to assess. Perceptions: Unable to assess. Though content/process: Unable to assess. Memory and concentration: Unable to assess. Judgment and insight: Unable to assess. IMPRESSIONS: Delirium, multifactorial (toxic-metabolic and likely medications (BZD withdrawal), corticosteroids, infection) PLAN: -At this time patient DOES NOT meet criteria for inpatient psychiatric admission. -Delirium precautions recommended with patient including - avoiding use of narcotics and MANAGER TRAVEL sedatives, limit anticholinergic medications when possible, frequent re-orientation, minimize use of restraints, open window shades during the day and close them at night -Would recommend the following medication changes/additions: Prolixin decreased to 2.5 mg BID with improvement in sedation. Valium has been adjusted from 5 mg IV Q12H to 5 mg po TID. Continue Haldol IVP 5 mg Q6H PRN for agitation. Taper/decrease steroids as this will also increasing confusion/delirium. -Communicated plan to patient's nurse -Will continue to follow along -Continue treatment of underlying medical condition -Please contact with any questions.
[2022-08-30] MEDS: BUDESONIDE 0.5 MG/2 ML NEBU INHALATION SCH (19:50)
[2022-08-30] MEDS ORDERED: SERTRALINE 25 MG TAB PO SCH (21:00)
[2022-08-30] MEDS: MONTELUKAST 10 MG TAB PO SCH (21:16)
[2022-08-30] MEDS: DOCUSATE 100 MG CAP PO SCH (21:16)
[2022-08-31] MEDS: CEFEPIME 2 GM in SODIUM CHLORIDE 0.9% 100 ML IVPB SCH ×3 (00:03→15:51)
[2022-08-31] MEDS: metroNIDAZOLE-NS PMX 500 MG in SALINE 1 100ML.BAG IVPB SCH ×3 (00:03→15:51)
[2022-08-31 03:59] LABS: Anisocytosis Slight; HCT 30.6 % (34.0-46.0); HGB 9.9 gm/dL (11.4-16.0); MCHC 32.2 g/dL (31.0-37.0); MCV 83.8 fL (80.0-100.0); Mean Platelet Volume 7.8; Platelet Count 178 k/uL (150-450); RBC 3.65 m/uL (3.80-5.40); RDW 16.1 % (11.5-15.5); WBC 3.5 k/uL (3.8-10.6)
[2022-08-31 04:23] LABS: Band Neutrophils % 3 %; Eosinophils # (M) 0.04 k/uL (0-0.7); Lymphocytes # (M) 1.89 k/uL (1.0-4.8); Monocytes # (M) 0.28 k/uL (0-1.0); Neutrophils % (M) 34 %; Nucleated Red Blood Cells 0 /100 WBC (0-0); Total Cells Counted 100
[2022-08-31 04:24] LABS: Toxic Granulation Present
[2022-08-31 04:26] LABS: African American GFR (CKD) >90 (>60 ml/min/1.73 sqM); Anion Gap 5 mmol/L; Blood Urea Nitrogen 9 mg/dL (7-17); Carbon Dioxide 27 mmol/L (22-30); Chloride 106 mmol/L (98-107); Glucose 98 mg/dL (74-99); Non-African American GFR(CKD) >90 (>60 ml/min/1.73 sqM); Sodium 138 mmol/L (137-145)
[2022-08-31 05:16] LABS: Potassium 4.1 mmol/L (3.5-5.1)
[2022-08-31] MEDS: DOCUSATE 100 MG CAP PO SCH ×2 (07:13→20:27)
[2022-08-31] MEDS: METOPROLOL TARTRATE 25 MG TAB PO SCH ×2 (07:17→20:27)
[2022-08-31] MEDS: ZONISAMIDE 100 MG CAP PO SCH ×3 (07:17→20:27)
[2022-08-31] MEDS: BUDESONIDE 0.5 MG/2 ML NEBU INHALATION SCH ×2 (07:43→19:45)
[2022-08-31] MEDS: ALBUTEROL NEBULIZED 2.5 MG/3 ML INHALATION SCH ×4 (07:43→19:45)
[2022-08-31] MEDS: PANTOPRAZOLE 40 MG/10 ML VIAL IVP SCH (08:17)
[2022-08-31] MEDS: OXcarbazepine 300 MG TAB PO SCH ×5 (08:18→20:31)
[2022-08-31] MEDS: HEPARIN SODIUM,PORCINE/PF 5,000 UNIT/0.5 ML SYRINGE SQ SCH ×2 (08:19→20:27)
[2022-08-31] MEDS: diazePAM 5 MG TAB PO SCH ×3 (08:19→21:56)
[2022-08-31 11:27] LABS: Glucose,Whole Blood 123 mg/dL (70-110)
--- NOTE | 2022-08-31 11:49 | P.PN ---
Subjective Progress Note Date: 08/31/22 Principal diagnosis: Acute febrile illness with acute on chronic encephalopathy and delirium. On 08/29/2022, clinically unchanged, essentially not doing a lot of progress as the patient still gets episodes of agitation, tries to reach to oxygen masks and cannula, tries to reach out to the nurses, headaches, yells, and these at all, episodes especially if she gets stimulated. Unfortunately, this has not some . She remains on Precedex at a high dose of 1.4 mcg/kg/m. She remains on Prolixin 5 mg IV every 8 hours. She is taken Haldol as needed. She is also on Valium 5 mg IV every 12 hours. Neurologic exam is nonfocal. She is on Vimpat for seizure control. Electrolytes are all within normal on today's evaluation. Chest x-ray from yesterday showed no acute abnormalities. The patient has some increased pulmonary vascular markings. Meanwhile, she is requiring BiPAP on and off during day-to-day/at nighttime. Her pressures of 14/6 cm of water with FiO2 of 35. Noted the patient hasn't had anything to eat over the past 3 days since she came in to us to the intensive care unit on 4 days ago. I took off the BiPAP and put on oxygen at 4 L nasal cannula. Afebrile. Still antibiotic coverage is empiric. White cell count nonelevated and the patient's cultures are all negative. On today's evaluation of 08/30/2022, the patient seems to much more comfortable. She was taken off the BiPAP. She was taken off the nasal cannula and she is tolerating diet and she is being fed by the nursing staff here in the ICU. She was also taken off the Precedex and we're using essentially combination of Valium and Prolixin regarding of agitation which is essentially improved. No seizure activity has been noted and the patient remains on broad-spectrum antibiotics per IDs recommendations. WBC was 4.4 with a hemoglobin of 10.5 and a platelet count of 181. BUN is at 3 with a creatinine of 0.38 and a sodium level is at 140. All of the cultures are negative and the patient is afebrile. Patient was on 08/31/2022, she is now off Precedex, she is on room air, does not seem to be in any distress, patient is nonverbal, she is not very cooperative, she does have a sitter at bedside, no evidence of any seizure activities overnight, WBC count is 3.5 hemoglobin is 9.9 electrolytes and renal profile are normal, last chest x-ray from August 28 showed mostly mild pulmonary vascular congestion. Remains on bronchodilators, remains on cefepime as per infectious disease on consultation, she is also on Flagyl, remains on GI and DVT prophylaxis Objective - Vital Signs Vital signs: Vital Signs Temp 97.9 F 08/31/22 00:00 Pulse 74 08/31/22 11:22 Resp 18 08/31/22 08:00 BP 102/76 08/31/22 08:00 Pulse Ox 94 L 08/31/22 08:00 FiO2 35 08/29/22 07:37 Intake & Output 08/30/22 08/31/22 08/31/22 18:59 06:59 18:59 Intake Total 1085 230 Output Total 935 600 Balance 150 -370 Intake: IV 585 130 0.9 @ 20 10 130 Cefepime 2 gm In Sodium 100 Chloride 0.9% 100 ml @ 25 mls/hr IVPB Q8HR [facility] Rx# :[id number] Dextrose 5%-0.45% NaCl 1, 75 000 ml @ 75 mls/hr IV . [id number] [facility] Rx#:[id number] Potassium Chloride 10 meq 100 In Water For Injection 1 100ml.bag @ 100 mls/hr IVPB Q1H [facility] Rx#: [id number] Potassium Chloride 10 meq 200 In Water For Injection 1 100ml.bag @ 100 mls/hr IVPB Q1H [facility] Rx#: [id number] metroNIDAZOLE-NS PMX 500 100 mg In Saline 1 100ml.bag @ 100 mls/hr IVPB Q8HR [facility] Rx#:[id number] Oral 500 100 Output: Urine 935 600 Other: Voiding Method Indwelling Catheter Indwelling Catheter Indwelling Catheter # Bowel Movements 2 - Exam Physical Exam: Revealed a 61-year-old female, nonverbal, in no distress on room air. Head: Atraumatic, normocephalic. HEENT:[Neck is supple.] [No neck masses.] [No thyromegaly.] [No JVD.] Chest: [Scattered rhonchi noted. No wheezing. Symmetrical chest expansion. Cardiac Exam: [Normal S1 and S2, no S3 gallop, no murmur.] Abdomen: [Soft, nontender, no megaly, no rebound, no guarding, normal bowel sounds.] Extremities: [No clubbing, no edema, no cyanosis.] Neurological Exam: Could not fully assess, patient is nonverbal, does not seem to be comprehending any instructions. Psychiatric: Depressed mood, flat affect, could not fully assess mental status. - Labs CBC & Chem 7: 08/31/22 03:43 08/31/22 03:43 Labs: Abnormal Lab Results - Last 24 Hours (Table) 08/31/22 08/31/22 08/31/22 Range/Units 03:43 03:43 11:25 WBC 3.5 L (3.8-10.6) k/uL RBC 3.65 L (3.80-5.40) m/uL Hgb 9.9 L (11.4-16.0) gm/dL Hct 30.6 L (34.0-46.0) % RDW 16.1 H (11.5-15.5) % Neutrophils # (Manual) 1.20 L (1.3-7.7) k/uL Creatinine 0.42 L (0.52-1.04) mg/dL POC Glucose (mg/dL) 123 H (70-110) mg/dL Calcium 8.0 L (8.4-10.2) mg/dL Microbiology - Last 24 Hours (Table) 08/25/22 05:45 Blood Culture - Final Blood 08/25/22 05:30 Blood Culture - Final Blood Assessment and Plan Assessment: Impression: Acute febrile illness, remains empirically on antibiotics, no clear-cut evidence of infection antibiotics are being addressed by infectious disease on the case may consider stopping them. Acute on chronic encephalopathy/psychosis/delirium, improved Profound mental retardation History of cerebral palsy History of seizure disorder Expressive and receptive aphasia Benign essential hypertension Urinary incontinence and previous episodes of UTI [facility] resident Recommendation: Continue present supportive care measures Continue her psychiatric medications including Valium and Prolixin Continue Haldol as needed Continue bronchodilators Antibiotics to be addressed by infectious disease on the case DO NOT RESUSCITATE/DO NOT INTUBATE CODE STATUS Continue GI and DVT prophylaxis We will continue to follow Time with Patient: Less than 30
[2022-08-31] MEDS ORDERED: IOPAMIDOL CONTRAST (ORAL USE) VIAL PO PRN (12:01)
--- NOTE | 2022-08-31 13:33 | P.PN ---
Progress Note - Text Progress Note Date: 08/31/22 Interval History: Patient was seen resting in bed however is nonverbal. She is able to acknowledge this provider. Present in the room is the patient's fire safety inspector. No history could be illicited from the patient. She does not respond to questions. She stares blankly at this provider however remains calm. As per discussion with the patient's nurse, she appears to have slept well and has not displayed any acute agitation for the past 12 hours. Mental Status Exam: General Appearance: Patient appears to be stated age, obese female, leaning on her side with staff at bedside. Behavior: No agitated behavior. Patient is calm. Speech: Nonverbal. Mood/Affect: Unable to assess. Suicidality/Homicidality: Unable to assess. Perceptions: Unable to assess. Though content/process: Unable to assess. Memory and concentration: Unable to assess. Judgment and insight: Unable to assess. Vital Signs Temp 97.9 F 08/31/22 00:00 Pulse 74 08/31/22 11:22 Resp 18 08/31/22 08:00 BP 102/76 08/31/22 08:00 Pulse Ox 94 L 08/31/22 08:00 FiO2 35 08/29/22 07:37 Intake & Output 08/30/22 08/31/22 08/31/22 18:59 06:59 18:59 Intake Total 1085 230 Output Total 935 600 Balance 150 -370 Intake: IV 585 130 0.9 @ 20 10 130 Cefepime 2 gm In Sodium 100 Chloride 0.9% 100 ml @ 25 mls/hr IVPB Q8HR [facility] Rx# :[id number] Dextrose 5%-0.45% NaCl 1, 75 000 ml @ 75 mls/hr IV . [id number] [facility] Rx#:[id number] Potassium Chloride 10 meq 100 In Water For Injection 1 100ml.bag @ 100 mls/hr IVPB Q1H [facility] Rx#: [id number] Potassium Chloride 10 meq 200 In Water For Injection 1 100ml.bag @ 100 mls/hr IVPB Q1H [facility] Rx#: [id number] metroNIDAZOLE-NS PMX 500 100 mg In Saline 1 100ml.bag @ 100 mls/hr IVPB Q8HR [facility] Rx#:[id number] Oral 500 100 Output: Urine 935 600 Other: Voiding Method Indwelling Catheter Indwelling Catheter Indwelling Catheter # Bowel Movements 2 Laboratory Results - Last 24 Hours 08/30/22 08/31/22 08/31/22 16:40 03:43 03:43 WBC 3.5 L RBC 3.65 L Hgb 9.9 L Hct 30.6 L MCV 83.8 MCH 27.0 MCHC 32.2 RDW 16.1 H Plt Count 178 MPV 7.8 Neutrophils % (Manual) 34 Band Neuts % (Manual) 3 Lymphocytes % (Manual) 54 Monocytes % (Manual) 8 Eosinophils % (Manual) 1 Neutrophils # (Manual) 1.20 L Lymphocytes # (Manual) 1.89 Monocytes # (Manual) 0.28 Eosinophils # (Manual) 0.04 Nucleated RBCs 0 Manual Slide Review Performed Toxic Granulation Present Anisocytosis Slight Sodium 138 Potassium 4.1 Chloride 106 Carbon Dioxide 27 Anion Gap 5 BUN 9 Creatinine 0.42 L Est GFR (CKD-EPI)AfAm >90 Est GFR (CKD-EPI)NonAf >90 Glucose 98 POC Glucose (mg/dL) 96 POC Glu Business Management Manager ID Laura Meza Calcium 8.0 L 08/31/22 11:25 WBC RBC Hgb Hct MCV MCH MCHC RDW Plt Count MPV Neutrophils % (Manual) Band Neuts % (Manual) Lymphocytes % (Manual) Monocytes % (Manual) Eosinophils % (Manual) Neutrophils # (Manual) Lymphocytes # (Manual) Monocytes # (Manual) Eosinophils # (Manual) Nucleated RBCs Manual Slide Review Toxic Granulation Anisocytosis Sodium Potassium Chloride Carbon Dioxide Anion Gap BUN Creatinine Est GFR (CKD-EPI)AfAm Est GFR (CKD-EPI)NonAf Glucose POC Glucose (mg/dL) 123 H POC Glu Business Management Manager ID Jo Pérez Calcium Assessment Delirium, multifactorial (toxic-metabolic and likely medications (BZD withdrawal), corticosteroids, infection) Intellectual disability Plan: -At this time patient DOES NOT meet criteria for inpatient psychiatric admission. -Delirium precautions recommended with patient including - avoiding use of narcotics and WASHING MACHINE LOADER sedatives, limit anticholinergic medications when possible, frequent re-orientation, minimize use of restraints, open window shades during the day and close them at night -Would recommend the following medication changes/additions: Continue Prolixin 2.5 mg BID for agitation and behaviors Valium has been adjusted from 5 mg IV Q12H to 5 mg po TID. Continue Haldol IVP 5 mg Q6H PRN for agitation. -Communicated plan to patient's nurse -Continue treatment of underlying medical condition -Please contact with any questions. -The patient has numerous psychotropic medications listed as her home medications. However, due to concerns for polypharmacy, it is recommended that the patient discontinue her Abilify, and Seroquel and continue treatment with Prolixin in the outpatient setting. She may continue Trileptal. -Psychiatry will follow, however, she appears to be psychiatrically stable for discharge as she is reportedly back at baseline in terms of her mentation and behaviors.
--- NOTE | 2022-08-31 14:47 | P.PN ---
Subjective Progress Note Date: 08/31/22 CHIEF COMPLAINT: Altered mental status and shortness of breath HISTORY OF PRESENT ILLNESS: Patient remains in the ICU. She is currently on room air. She does continue to have a bedside sitter due to aggressive behavior and agitation. Per nursing staff patient is having bowel movements. She is tolerating diet. Patient did have a low-grade temp of 100.3 yesterday evening. WBC 3. 5H39.9 0.178 Patient seen and examined with Dr. Maldonado PHYSICAL EXAM: VITAL SIGNS: Reviewed. GENERAL: No acute distress ABDOMEN: Soft. distended. Nontender. ASSESSMENT: 1. Resolving ileus 2. Recent hospitalization at [facility] with rectal bolus and constipation 3. Febrile illness 4. Shortness of breath 5. History of cerebral palsy PLAN: -Continue ICU management -Continue supportive care -Follow up on computed tomography scan abdomen and pelvis ordered by infectious disease Physician Gmat Tutor note has been reviewed by physician. Signing provider agrees with the documented findings, assessment, and plan of care. Objective - Vital Signs Vital signs: Vital Signs Temp 97.9 F 08/31/22 00:00 Pulse 74 08/31/22 11:22 Resp 18 08/31/22 08:00 BP 102/76 08/31/22 08:00 Pulse Ox 94 L 08/31/22 08:00 FiO2 35 08/29/22 07:37 Intake & Output 08/30/22 08/31/22 08/31/22 18:59 06:59 18:59 Intake Total 1085 230 Output Total 935 600 Balance 150 -370 Intake: IV 585 130 0.9 @ 20 10 130 Cefepime 2 gm In Sodium 100 Chloride 0.9% 100 ml @ 25 mls/hr IVPB Q8HR [facility] Rx# :[id number] Dextrose 5%-0.45% NaCl 1, 75 000 ml @ 75 mls/hr IV . [id number] [facility] Rx#:[id number] Potassium Chloride 10 meq 100 In Water For Injection 1 100ml.bag @ 100 mls/hr IVPB Q1H [facility] Rx#: [id number] Potassium Chloride 10 meq 200 In Water For Injection 1 100ml.bag @ 100 mls/hr IVPB Q1H [facility] Rx#: [id number] metroNIDAZOLE-NS PMX 500 100 mg In Saline 1 100ml.bag @ 100 mls/hr IVPB Q8HR [facility] Rx#:[id number] Oral 500 100 Output: Urine 935 600 Other: Voiding Method Indwelling Catheter Indwelling Catheter Indwelling Catheter # Bowel Movements 2 - Labs CBC & Chem 7: 08/31/22 03:43 08/31/22 03:43 Labs: Abnormal Lab Results - Last 24 Hours (Table) 08/31/22 08/31/22 08/31/22 Range/Units 03:43 03:43 11:25 WBC 3.5 L (3.8-10.6) k/uL RBC 3.65 L (3.80-5.40) m/uL Hgb 9.9 L (11.4-16.0) gm/dL Hct 30.6 L (34.0-46.0) % RDW 16.1 H (11.5-15.5) % Neutrophils # (Manual) 1.20 L (1.3-7.7) k/uL Creatinine 0.42 L (0.52-1.04) mg/dL POC Glucose (mg/dL) 123 H (70-110) mg/dL Calcium 8.0 L (8.4-10.2) mg/dL Microbiology - Last 24 Hours (Table) 08/25/22 05:45 Blood Culture - Final Blood 08/25/22 05:30 Blood Culture - Final Blood
--- NOTE | 2022-08-31 17:17 | P.PN ---
Subjective Progress Note Date: 08/31/22 Patient was initially seen by Dr. Duarte Stokes. Please refer to his note for details. Patient is a 61-year-old female with history of severe developmental delay, seizure disorder, who has altered mental status. Patient has fever and per pulmonary, noninfectious but placed empirically on antibiotics. Patient is currently on Trileptal and Zonegran. EEG cannot be done because of noncooperation. Per nurse report, patient has not had any seizure. She is overall a lot better. Patient's baseline is very limited for about 15 words. She lives in a snf. She sometimes can get agitated. She used to be on Precedex and Haldol but now they have been discontinued. No concerns raised by the nursing staff. Objective - Vital Signs Vital signs: Vital Signs Temp 98 F 08/31/22 14:00 Pulse 68 08/31/22 15:11 Resp 18 08/31/22 14:00 BP 154/79 08/31/22 14:00 Pulse Ox 98 08/31/22 14:00 FiO2 35 08/29/22 07:37 Intake & Output 08/30/22 08/31/22 08/31/22 18:59 06:59 18:59 Intake Total 1085 230 760 Output Total 935 600 400 Balance 150 -370 360 Intake: IV 585 130 280 0.9 @ 20 10 130 80 Cefepime 2 gm In Sodium 100 100 Chloride 0.9% 100 ml @ 25 mls/hr IVPB Q8HR [facility] Rx# :[id number] Dextrose 5%-0.45% NaCl 1, 75 000 ml @ 75 mls/hr IV . [id number] [facility] Rx#:[id number] Potassium Chloride 10 meq 100 In Water For Injection 1 100ml.bag @ 100 mls/hr IVPB Q1H [facility] Rx#: [id number] Potassium Chloride 10 meq 200 In Water For Injection 1 100ml.bag @ 100 mls/hr IVPB Q1H [facility] Rx#: [id number] metroNIDAZOLE-NS PMX 500 100 100 mg In Saline 1 100ml.bag @ 100 mls/hr IVPB Q8HR [facility] Rx#:[id number] Oral 500 100 480 Output: Urine 935 600 400 Other: Voiding Method Indwelling Catheter Indwelling Catheter Indwelling Catheter # Bowel Movements 2 - Exam Patient is laying comfortably in the bed. She is asleep. On waking up, patient mumbles, does not make any intelligible speech. She squeezes hands equally. Her pupils are equal, round and reacting. Face is symmetric. No obvious seizure-like activity. - Labs CBC & Chem 7: 08/31/22 03:43 08/31/22 03:43 Labs: Abnormal Lab Results - Last 24 Hours (Table) 08/31/22 08/31/22 08/31/22 Range/Units 03:43 03:43 11:25 WBC 3.5 L (3.8-10.6) k/uL RBC 3.65 L (3.80-5.40) m/uL Hgb 9.9 L (11.4-16.0) gm/dL Hct 30.6 L (34.0-46.0) % RDW 16.1 H (11.5-15.5) % Neutrophils # (Manual) 1.20 L (1.3-7.7) k/uL Creatinine 0.42 L (0.52-1.04) mg/dL POC Glucose (mg/dL) 123 H (70-110) mg/dL Calcium 8.0 L (8.4-10.2) mg/dL Assessment and Plan Assessment: Acute febrile illness unknown exact source. Was febrile but normal wbc, and neck seems supple and low suspicion for [employer] infection--fever resolved. Mentation has improved per nursing report. Encephalopathy due to underlying infection---improved Agitation (baseline)--currently at baseline and more cooperative Acute shortness of breath Developmental delay Cerebral palsy History of seizure Language impairments the patient has a component of both expressive and receptive aphasia Urinary incontinence Hypertension Osteoporosis Chronic anxiety Plan: Patient's mentation has improved. Continue patient's home antiseizure medications: Zonegran 100 mg 1 tablet 3 times a day, Trileptal 300 mg a tablet twice a day as well as 600 mg daily at bedtime. Dr. Stokes has discontinued the Vimpat 50 mg IV twice a day. Please avoid Keppra since it can cause agitation as well as restlessness. Patient not cooperative for EEG. I.D. team is on board and patient is on cefepime, metronidazole. Psychiatry is on board. They have modified medication and placed on Haldol 5mg every 5 hours. Patient is off Precedex. We'll defer the rest of medical management to the primary team The plan was discussed with ICU nurse. If patient continues to be doing well and no issues with swallowing and no further seizure then she is clear from a neurologic perspective to be discharged back to her nursing facility Neurologically patient is stable.
[2022-08-31] MEDS: MONTELUKAST 10 MG TAB PO SCH (20:27)
[2022-09-01] MEDS: CEFEPIME 2 GM in SODIUM CHLORIDE 0.9% 100 ML IVPB SCH ×3 (01:25→15:45)
[2022-09-01] MEDS: metroNIDAZOLE-NS PMX 500 MG in SALINE 1 100ML.BAG IVPB SCH ×3 (01:25→15:45)
--- NOTE | 2022-09-01 05:56 | P.PN ---
Subjective Progress Note Date: 08/31/22 This is a 61-year-old female who was recently admitted with change in mental status with concerns of possible serotonin syndrome and also febrile with features of sepsis, present on admission possibly secondary to pneumonia. Patient is currently in ICU being closely monitored with multiple medical consu ltations following. Patient is becoming more alert and combative per nursing staff and currently maintained on Precedex along with Valium and was given Prolixin which is discontinued. Patient currently calm at the moment maintained on the Precedex. Patient continues on IV Ativan with preliminary cultures pending and urine culture thus far is negative. Per nursing staff patient is having bowel movements and general surgery was evaluating the patient for possible ileus. CT abdomen was unable to be performed given patient's agitation and is still pending. Patient also continues on BiPAP with FiO2 of 40% and PEEP is 5 and maintaining oxygen saturations above 95%. Patient is currently afeb rile. 08/28/2022 Patient continues to be in the ICU using BiPAP currently on 5 L via nasal cannula. Patient continues on Precedex along with multiple sedatives as patient continues to be extremely agitated. Multiple medical consultations following including psychiatry and neurology and patient appears to be somewhat at baseline as patient is frequently agitated and restless and aggressive with staff at her living facility. Patient is known to be a biter and will also attempt to head butt with extreme agitation. Patient is also continued on multiple antibiotics with infectious disease following an pro-calcitonin has been low white count normal and patient remains afebrile with overall suspicion for infection is low. All cultures thus far remain negative. Chest x-ray shows some vascular congestion. Patient continues to require BiPAP intermittently she desats quickly continuously removing oxygen supply from her face and becomes hypoxic. Patient continues to thrash around and has been receiving IM Haldol. 08/29/2022 Patient continues to be monitored closely in ICU. Patient is currently restrained secondary to pulling at lines. IV precedex is being weaned. Patient is more awake today and has been tolerating oral intake. Able to take oral medications. Neurology has taken patient off the IV vimpat and resumed on oral zonisamide and oral trileptal. Potassium 3.1 today and patient received 5 bags of IV potassium. Cultures remain negative so far and patient remains on IV met ronidazole and IV cefepime. ID is following the patient closely. Heart rate has been increasing throughout the day and is tachycardic in the low 100s. Noted that metoprolol has been on hold as patient was mostly bradycardic in the 50s. Patient has been maintained on clonidine patch and recommend to discontinue and resume metoprolol in the AM. Patient remains on IV fluids with D5 0.45 normal saline at 75 mls/hr. 08/30/2022 Patient is evaluated today in the ICU. Remains in soft wrist restraints with corporate safety coordinator at the bedside appears less agitated than yesterday. Has some scattered ronchi on exam. Tolerating diet and has been resumed on oral antiseizure medications. Heart rate down in the 70s and blood pressure has improved to 117/50. Neurology and psychiatry are following. Patient is off the IV precedex. Linaclotide, escitalopram and aripiprazole remain on hold. Caregivers feel patient is back to baseline. Remains on IV cefepime and IV metronidazole. ID is following. 08/31/2022 Patient is seen and evaluated in follow-up this morning currently sitting up with caregivers at the bedside as well as sitter. Patient is much more awake and appears to be at her baseline and currently on room air. Multiple medical consultations following an per nursing staff patient is a down great from the ICU awaiting a bed. Infectious disease following as well and blood cultures along with urine cultures have been negative and patient remains afebrile. Patient does continue on antibiotics in the form of cefepime and Flagyl and recommending CT abdomen. Patient is tolerating diet and would recommend continue with supervision with meals and aspiration precautions with head of the bed elevated 45 at all times. Review of systems: Unable to obtain as patient is nonverbal PHYSICAL EXAMINATION: GENERAL: The patient is alert and oriented x1, Well developed, well nourished. Morbidly obese, currently less agitated and on room air HEENT: Pupils are round and equally reacting to light. EOMI. no scleral icterus. No conjunctival pallor. Normocephalic, atraumatic. No pharyngeal erythema. No thyromegaly. Oral mucosa is moist and unkept CARDIOVASCULAR: S1 and S2 muffled PULMONARY: diminished breath sounds bilaterally with some scattered rhonchi noted. ABDOMEN: soft. Nontender on exam. obese. non-distended, normoactive bowel sounds. No palpable organomegaly. MUSCULOSKELETAL: No joint swelling or deformity. EXTREMITIES: No cyanosis, clubbing, or pedal edema. NEUROLOGICAL: Unable to completely assess as patient is nonverbal, Diffuse weakness SKIN: No rashes. Assessment: Bilateral pneumonia, possibly aspiration, possibly interstitial viral pneumonia with sepsis, present on admission Chronic obstructive pulmonary disease, acute exacerbation Acute hypoxic respiratory failure, secondary to above Change in mental status, acute mental ENCEPHALOPATHY, multifactorial, improving History of cerebral palsy History of seizure disorder Abdominal distention with possible ileus, resolving with recent hospitalization at [facility] for rectal bolus and constipation previous history of multiple urinary tract infections and VRE History of severe anxiety GI prophylaxis DVT prophylaxis No code, no CPR, no vent Plan: Continues in intensive care unit with corporate safety coordinator and soft restraints. Less agitated today and transitioned off IV medications. Patient is a down great from ICU awaiting a bed Linaclotide, escitalopram and aripiprazole remain on hold. Psychiatry and n eurology are following. Infectious disease is following and patient continues on antibiotics in the form of cefepime, Flagyl. Cultures thus far are negative along with pro-calcitonin. Infectious disease ordered a CT abdomen which is currently pending Patient does have caregivers that normally stay with her and have reported she is quite aggressive with them as well on a daily basis. Currently caregivers report patient appears to be at baseline. Patient has been weaned to room air patient's above 90% Labs reviewed and recommend to replace electrolytes per protocol Social work following plan is to return to home where she resides with possible discharge in 24 hours The impression and plan of care has been dictated by Sadia Pryor, nurse practitioner as directed. Dr. Tracy MD I have performed a history and examination and MDM of this patient, discussed the same with the dictator, and agree with the dictator's assessment and plan as written ,documented as a scribe. Based on total visit time, I have performed more than 50% of the visit. Any additional findings or plans will be noted. Objective - Vital Signs Vital signs: Vital Signs Temp 97.9 F 08/31/22 00:00 Pulse 72 08/31/22 07:58 Resp 19 08/31/22 06:00 BP 142/70 08/31/22 06:00 Pulse Ox 93 L 08/30/22 20:00 FiO2 35 08/29/22 07:37 Intake & Output 08/30/22 08/31/2223 18:59 06:59 18:59 Intake Total 1085 230 Output Total 935 600 Balance 150 -370 Intake: IV 585 130 0.9 @ 20 10 130 Cefepime 2 gm In Sodium 100 Chloride 0.9% 100 ml @ 25 mls/hr IVPB Q8HR [facility] Rx# :[id number] Dextrose 5%-0.45% NaCl 1, 75 000 ml @ 75 mls/hr IV . [id number] [facility] Rx#:[id number] Potassium Chloride 10 meq 100 In Water For Injection 1 100ml.bag @ 100 mls/hr IVPB Q1H [facility] Rx#: [id number] Potassium Chloride 10 meq 200 In Water For Injection 1 100ml.bag @ 100 mls/hr IVPB Q1H [facility] Rx#: [id number] metroNIDAZOLE-NS PMX 500 100 mg In Saline 1 100ml.bag @ 100 mls/hr IVPB Q8HR [facility] Rx#:[id number] Oral 500 100 Output: Urine 935 600 Other: Voiding Method Indwelling Catheter Indwelling Catheter # Bowel Movements 2 - Labs CBC & Chem 7: 08/31/22 03:43 08/31/22 03:43 Labs: Abnormal Lab Results - Last 24 Hours (Table) 08/31/22 08/31/22 Range/Units 03:43 03:43 WBC 3.5 L (3.8-10.6) k/uL RBC 3.65 L (3.80-5.40) m/uL Hgb 9.9 L (11.4-16.0) gm/dL Hct 30.6 L (34.0-46.0) % RDW 16.1 H (11.5-15.5) % Neutrophils # (Manual) 1.20 L (1.3-7.7) k/uL Creatinine 0.42 L (0.52-1.04) mg/dL Calcium 8.0 L (8.4-10.2) mg/dL Microbiology - Last 24 Hours (Table) 08/25/22 05:45 Blood Culture - Final Blood 08/25/22 05:30 Blood Culture - Final Blood
[2022-09-01] MEDS: ZONISAMIDE 100 MG CAP PO SCH ×2 (06:49→16:42)
[2022-09-01] MEDS: DOCUSATE 100 MG CAP PO SCH (06:49)
[2022-09-01] MEDS: METOPROLOL TARTRATE 25 MG TAB PO SCH (06:49)
--- NOTE | 2022-09-01 06:57 | P.PN ---
Subjective Progress Note Date: 08/31/22 Principal diagnosis: Sepsis Patient is a 61-year-old female with a past medical history negative for cerebral palsy seizure disorder history of urine incontinence and UTI patient was transferred from [facility] for evaluation of difficulty in breathing apparently the patient was recently admitted and [facility] apparently the patient did have some fecal retention , patient presented with sepsis and concern for possible abdominal source. On today's evaluation that is 08/31/2022, the patient remains to be febrile, patient is hemodynamically stable not requiring any pressor support, the patient is less restless and remains to be on room air, no vomiting, choking on the food or diarrhea has been reported by the nursing staff present at the bedside Objective - Vital Signs Vital signs: Vital Signs Temp 97.9 F 08/31/22 00:00 Pulse 74 08/31/22 11:22 Resp 18 08/31/22 08:00 BP 102/76 08/31/22 08:00 Pulse Ox 94 L 08/31/22 08:00 FiO2 35 08/29/22 07:37 Intake & Output 08/30/22 08/31/22 08/31/22 18:59 06:59 18:59 Intake Total 1085 230 Output Total 935 600 Balance 150 -370 Intake: IV 585 130 0.9 @ 20 10 130 Cefepime 2 gm In Sodium 100 Chloride 0.9% 100 ml @ 25 mls/hr IVPB Q8HR [facility] Rx# :[id number] Dextrose 5%-0.45% NaCl 1, 75 000 ml @ 75 mls/hr IV . [id number] [facility] Rx#:[id number] Potassium Chloride 10 meq 100 In Water For Injection 1 100ml.bag @ 100 mls/hr IVPB Q1H [facility] Rx#: [id number] Potassium Chloride 10 meq 200 In Water For Injection 1 100ml.bag @ 100 mls/hr IVPB Q1H [facility] Rx#: [id number] metroNIDAZOLE-NS PMX 500 100 mg In Saline 1 100ml.bag @ 100 mls/hr IVPB Q8HR [facility] Rx#:[id number] Oral 500 100 Output: Urine 935 600 Other: Voiding Method Indwelling Catheter Indwelling Catheter Indwelling Catheter # Bowel Movements 2 - Exam GENERAL DESCRIPTION: Middle-aged female lying in bed in no distress RESPIRATORY SYSTEM: Unlabored breathing , coarse breath sounds bilaterally HEART: S1 S2 regular rate and rhythm , ABDOMEN: Soft , abdominal distention and tenderness EXTREMITIES: No edema feet - Labs CBC & Chem 7: 08/31/22 03:43 08/31/22 03:43 Labs: Abnormal Lab Results - Last 24 Hours (Table) 08/31/22 08/31/22 08/31/22 Range/Units 03:43 03:43 11:25 WBC 3.5 L (3.8-10.6) k/uL RBC 3.65 L (3.80-5.40) m/uL Hgb 9.9 L (11.4-16.0) gm/dL Hct 30.6 L (34.0-46.0) % RDW 16.1 H (11.5-15.5) % Neutrophils # (Manual) 1.20 L (1.3-7.7) k/uL Creatinine 0.42 L (0.52-1.04) mg/dL POC Glucose (mg/dL) 123 H (70-110) mg/dL Calcium 8.0 L (8.4-10.2) mg/dL Microbiology - Last 24 Hours (Table) 08/25/22 05:45 Blood Culture - Final Blood 08/25/22 05:30 Blood Culture - Final Blood Assessment and Plan (1) Sepsis Current Visit: Yes Status: Acute Code(s): A41.9 - SEPSIS, UNSPECIFIED ORGANISM SNOMED Code(s): 54106275 Plan: 1patient presented to hospital with sepsis in this patient with the fever tachycardia source possible abdominal as the patient did have a chest x-ray and CT angiogram of the chest did not show any consolidation urine is mildly posit beryl and evidence of any cellulitis or joint swelling apparently patient did have significant abdominal distention and tenderness likely abdominal source, CT could not be done because of her clinical condition and the patient is very restless and unable to stay still per the nursing staff 2-patient with multiple antibiotic allergies that would limit the number of antibiotics safe to use 3Patient did have a low-grade fever fever on 08/29/2022 was subsequently has resolved, the patient blood culture were repeated which has been negative so far, patient will benefit from a CT abdominal pelvis in view of overall improvement in her mental any clinical condition we will go ahead and ordered for today, patient will continue cefepime and Flagyl and monitor clinical course closely Time with Patient: Less than 30
[2022-09-01] MEDS: BUDESONIDE 0.5 MG/2 ML NEBU INHALATION SCH (08:43)
[2022-09-01] MEDS: ALBUTEROL NEBULIZED 2.5 MG/3 ML INHALATION SCH ×3 (08:43→16:09)
[2022-09-01] MEDS: PANTOPRAZOLE 40 MG/10 ML VIAL IVP SCH (08:48)
[2022-09-01] MEDS: HEPARIN SODIUM,PORCINE/PF 5,000 UNIT/0.5 ML SYRINGE SQ SCH (08:48)
[2022-09-01] MEDS: diazePAM 5 MG TAB PO SCH ×2 (08:49→15:46)
[2022-09-01 11:15] VITALS: BMI 43.2
--- NOTE | 2022-09-01 11:20 | P.PN ---
Subjective Progress Note Date: 09/01/22 Principal diagnosis: Acute febrile illness with acute on chronic encephalopathy and delirium. On 08/29/2022, clinically unchanged, essentially not doing a lot of progress as the patient still gets episodes of agitation, tries to reach to oxygen masks and cannula, tries to reach out to the nurses, headaches, yells, and these at all, episodes especially if she gets stimulated. Unfortunately, this has not some . She remains on Precedex at a high dose of 1.4 mcg/kg/m. She remains on Prolixin 5 mg IV every 8 hours. She is taken Haldol as needed. She is also on Valium 5 mg IV every 12 hours. Neurologic exam is nonfocal. She is on Vimpat for seizure control. Electrolytes are all within normal on today's evaluation. Chest x-ray from yesterday showed no acute abnormalities. The patient has some increased pulmonary vascular markings. Meanwhile, she is requiring BiPAP on and off during day-to-day/at nighttime. Her pressures of 14/6 cm of water with FiO2 of 35. Noted the patient hasn't had anything to eat over the past 3 days since she came in to us to the intensive care unit on 4 days ago. I took off the BiPAP and put on oxygen at 4 L nasal cannula. Afebrile. Still antibiotic coverage is empiric. White cell count nonelevated and the patient's cultures are all negative. On today's evaluation of 08/30/2022, the patient seems to much more comfortable. She was taken off the BiPAP. She was taken off the nasal cannula and she is tolerating diet and she is being fed by the nursing staff here in the ICU. She was also taken off the Precedex and we're using essentially combination of Valium and Prolixin regarding of agitation which is essentially improved. No seizure activity has been noted and the patient remains on broad-spectrum antibiotics per IDs recommendations. WBC was 4.4 with a hemoglobin of 10.5 and a platelet count of 181. BUN is at 3 with a creatinine of 0.38 and a sodium level is at 140. All of the cultures are negative and the patient is afebrile. Patient was on 08/31/2022, she is now off Precedex, she is on room air, does not seem to be in any distress, patient is nonverbal, she is not very cooperative, she does have a sitter at bedside, no evidence of any seizure activities overnight, WBC count is 3.5 hemoglobin is 9.9 electrolytes and renal profile are normal, last chest x-ray from August 28 showed mostly mild pulmonary vascular congestion. Remains on bronchodilators, remains on cefepime as per infectious disease on consultation, she is also on Flagyl, remains on GI and DVT prophylaxis Reevaluated today on 09/01/2022, patient remains in the ICU, on room air, not in any distress, patient is not verbal, she has obviously severe developmental delay, does not follow any instructions, but she is not in any distress. Patient remains off Precedex, Haldol and Precedex have been discontinued. Remains on Trileptal, and on zonegran. Patient was felt to have encephalopathy secondary to to underlying infection on her initial presentation, and that seems to have resolved. No labs were done today. Patient remains in the ICU as an overflow to be transferred to a medical surgical bed once it is available. Remains on cefepime as per infectious disease on the case remains on updrafts. Remains on Trileptal. And on zonisamide Objective - Vital Signs Vital signs: Vital Signs Temp 98 F 09/01/22 01:52 Pulse 72 09/01/22 08:48 Resp 18 09/01/22 08:00 BP 175/91 09/01/22 08:00 Pulse Ox 98 09/01/22 08:00 FiO2 35 08/29/22 07:37 Intake & Output 08/31/22 09/01/22 09/01/22 18:59 06:59 18:59 Intake Total 1200 440 230 Output Total 575 1800 850 Balance 204 -1360 -620 Weight 107.3 kg Intake: IV 480 320 230 0.9 @ 20 80 120 30 Cefepime 2 gm In Sodium 200 100 100 Chloride 0.9% 100 ml @ 25 mls/hr IVPB Q8HR [facility] Rx# :[id number] metroNIDAZOLE-NS PMX 500 200 100 100 mg In Saline 1 100ml.bag @ 100 mls/hr IVPB Q8HR [facility] Rx#:[id number] Oral 720 120 Output: Urine 575 1800 850 Other: Voiding Method Indwelling Catheter Indwelling Catheter Indwelling Catheter - Exam Physical Exam: Revealed a 61-year-old female, nonverbal, in no distress on room air. Head: Atraumatic, normocephalic. HEENT:[Neck is supple.] [No neck masses.] [No thyromegaly.] [No JVD.] Chest: [Scattered rhonchi noted. No wheezing. Symmetrical chest expansion. Cardiac Exam: [Normal S1 and S2, no S3 gallop, no murmur.] Abdomen: [Soft, nontender, no megaly, no rebound, no guarding, normal bowel sounds.] Extremities: [No clubbing, no edema, no cyanosis.] Neurological Exam: Could not fully assess, patient is nonverbal, does not seem to be comprehending any instructions. Psychiatric: Depressed mood, flat affect, could not fully assess mental status. - Labs CBC & Chem 7: 08/31/22 03:43 08/31/22 03:43 Labs: Abnormal Lab Results - Last 24 Hours (Table) 08/31/22 Range/Units 11:25 POC Glucose (mg/dL) 123 H (70-110) mg/dL Microbiology - Last 24 Hours (Table) 08/30/22 05:57 Blood Culture - Preliminary Blood Assessment and Plan Assessment: Impression: Acute febrile illness, remains empirically on antibiotics, no clear-cut evidence of infection antibiotics are being addressed by infectious disease on the case may consider stopping them. Acute on chronic encephalopathy/psychosis/delirium, improved Profound mental retardation History of cerebral palsy History of seizure disorder Expressive and receptive aphasia Benign essential hypertension Urinary incontinence and previous episodes of UTI [facility] resident Recommendation: Continue present supportive care measures Continue present medications as listed Continue bronchodilators Antibiotics to be addressed by infectious disease on the case, patient remains on cefepime, blood cultures and urine cultures have been negative all along DO NOT RESUSCITATE/DO NOT INTUBATE CODE STATUS Continue GI and DVT prophylaxis We will continue to follow Time with Patient: Less than 30
[2022-09-01 14:28] VITALS: BP 174/91; PULSE 69; RESP 20; TEMP 97.8
[2022-09-01] MEDS: hydrALAZINE HCL 20 MG/ML 1 ML VIAL IVP PRN (14:28)
--- NOTE | 2022-09-01 14:54 | P.PN ---
Subjective Progress Note Date: 09/01/22 CHIEF COMPLAINT: Altered mental status and shortness of breath HISTORY OF PRESENT ILLNESS: Patient remains in the ICU. She is currently on room air. She does continue to have a bedside sitter due to aggressive behavior and agitation. Patient is tolerating diet. Her last BM was yesterday. She is still been unable to have a computed tomography scan completed because she cannot stay still on and off. She is afebrile. WBC is 3.5 Patient seen and examined with Dr. Maldonado PHYSICAL EXAM: VITAL SIGNS: Reviewed. GENERAL: No acute distress ABDOMEN: Soft. distended. Nontender. ASSESSMENT: 1. Ileus resolved 2. Recent hospitalization at [facility] with rectal bolus and constipation 3. Febrile illness 4. Shortness of breath 5. History of cerebral palsy PLAN: -No surgical intervention planned -Continue supportive care -Surgical service will sign off. Please call with any questions or concerns Physician Dry Cleaning Supervisor note has been reviewed by physician. Signing provider agrees with the documented findings, assessment, and plan of care. Objective - Vital Signs Vital signs: Vital Signs Temp 97.8 F 09/01/22 14:00 Pulse 69 09/01/22 14:00 Resp 20 09/01/22 14:00 BP 174/91 09/01/22 14:00 Pulse Ox 96 09/01/22 14:00 FiO2 35 08/29/22 07:37 Intake & Output 08/31/22 09/01/22 09/01/22 18:59 06:59 18:59 Intake Total 1200 440 230 Output Total 575 1800 850 Balance 237 -1631 -736 Weight 107.3 kg Intake: IV 480 320 230 0.9 @ 20 80 120 30 Cefepime 2 gm In Sodium 200 100 100 Chloride 0.9% 100 ml @ 25 mls/hr IVPB Q8HR [facility] Rx# :[id number] metroNIDAZOLE-NS PMX 500 200 100 100 mg In Saline 1 100ml.bag @ 100 mls/hr IVPB Q8HR [facility] Rx#:[id number] Oral 720 120 Output: Urine 575 1800 850 Other: Voiding Method Indwelling Catheter Indwelling Catheter Indwelling Catheter - Labs CBC & Chem 7: 08/31/22 03:43 08/31/22 03:43 Labs: Microbiology - Last 24 Hours (Table) 08/30/22 05:57 Blood Culture - Preliminary Blood
--- NOTE | 2022-09-02 01:17 | P.DS ---
Providers Date of admission: 08/25/22 08:08 Expected date of discharge: 09/01/22 Attending physician: Sweetie Mendiola Consults: 08/25/22 08:06 Consult Physician Routine Consulting Provider: Demetrius Mckeon Consult Reason/Comments: copd, dyspnea Do you want consulting provider notified?: Yes 08/25/22 10:43 Consult Physician Urgent Consulting Provider: Duarte Stokes Consult Reason/Comments: neuro medications, sepsis r/o neuro component Do you want consulting provider notified?: Yes 08/25/22 12:08 Consult Physician Routine Consulting Provider: Kali Maldonado Consult Reason/Comments: abd distension Do you want consulting provider notified?: Yes 08/25/22 13:24 Consult Physician Urgent Consulting Provider: Lalita Hummel Consult Reason/Comments: febrile, sepsis Do you want consulting provider notified?: Yes 08/26/22 09:41 Consult Physician Urgent Consulting Provider: Bayron Ku Consult Reason/Comments: agitatation, multiple antipsychotics/mood stabelizers r/o seratonin syndrom Do you want consulting provider notified?: Yes Primary care physician: Prince Blandon Hospital Course: Final diagnosis Bilateral pneumonia, possibly aspiration, possibly interstitial viral pneumonia with sepsis, present on admission Chronic obstructive pulmonary disease, acute exacerbation Acute hypoxic respiratory failure, secondary to above Change in mental status, acute metabolic ENCEPHALOPATHY, multifactorial, likely medication effect History of cerebral palsy History of seizure disorder Abdominal distention with possible ileus, improved. recent hospitalization at [facility] for rectal bolus and constipation previous history of multiple urinary tract infections and VRE History of severe anxiety GI prophylaxis DVT prophylaxis No code, no CPR, no vent Discharge disposition Patient is being discharged in a stable condition with guarded prognosis to current correction where she resides. Patient will follow-up with Dr. Prince Blandon in the outpatient setting upon discharge. Patient is to continue with oral Ceftin and Flagyl as mentioned below per infectious disease recommendations. Patient to follow-up with pulmonary outpatient as scheduled. Total time taken is greater than 35 minutes. Hospital course This is a 61-year-old female who was recently admitted with fevers with concerns of pneumonia possibly aspiration with chronic obstructive pulmonary disease acute exacerbation requiring BiPAP. Patient showed improvement potentially weaning to room air and did require ICU management with overall guarded prognosis. Patient with significant medical comorbidities. Patient is back to baseline and continues with agitation although improved with psychiatry following closely making adjustments to medications as well. Please refer to medication reconciliation for medication adjustments. Patient has been cleared by consultations for discharge planning and patient will be returning to [facility] where she resides. Please refer to other consultation notes for further HPI. Patient will continue on oral Ceftin 500 mg twice daily for the next 1 week along with oral Flagyl 3 times a day for 1 week as well per infectious disease recommendations. Cultures were negative. Patient remains afebrile. No reports of nausea or vomiting and patient is tolerating diet. Would recommend aspiration precautions with head of the bed elevated 45 and superficial with meals. Patient will be discharged today. Physical exam: Gen: This is a 61-year-old female who is awake and alert 1, at baseline, well- developed, well-nourished, morbidly obese HEENT: Head is atraumatic, normocephalic. Pupils equal, round. Sclerae is anicteric. NECK: Supple. No JVD. No lymphadenopathy. No thyromegaly. LUNGS: Diminished breath sounds bilaterally with some scattered rhonchi. No intercostal retractions. HEART: Regular rate and rhythm. No murmur. ABDOMEN: Soft. Obese. Bowel sounds are present. No masses. No tenderness. EXTREMITIES: No pedal edema. No calf tenderness. NEUROLOGICAL: Patient is awake, alert and oriented x1. Diffusely weak Please refer to medication reconciliation sheet for a list of medications. The impression and plan of care has been dictated by Sadia Pryor, Nurse Practitioner as directed. Dr. Tracy MD I have performed a history and examination and MDM of this patient, discussed the same with the dictator, and agree with the dictator's assessment and plan as written ,documented as a scribe. Based on total visit time, I have performed more than 50% of the visit. Patient Condition at Discharge: Good Plan - Discharge Summary Discharge Rx Participant: No New Discharge Prescriptions: New cefUROXime axetiL [Ceftin] 500 mg PO BID 7 Days #14 tab metroNIDAZOLE [Flagyl] 500 mg PO TID 7 Days #21 tab fluPHENAZine [Prolixin 5MG] 2.5 mg PO TID 30 Days #45 tablet Continue Sennosides [Senokot] 8.6 mg PO HS@2000 PRN PRN Reason: Constipation Potassium Chloride ER [K-Dur 20] 20 meq PO TID@0700,1599,1999 OXcarbazepine [Trileptal] 300 mg PO BID@07,1599 OXcarbazepine [Trileptal] 600 mg PO HS@1999 Montelukast [Singulair] 10 mg PO HS@1999 Metoprolol Tartrate [Lopressor] 25 mg PO BID@699,1999 Docusate [Colace] 100 mg PO BID@699,1999 diazePAM [Valium] 5 mg PO TID@07,1599,1999 Menthol-Zinc Oxide Oint [Calmoseptine Ointment] 1 applic TOPICAL DAILY PRN PRN Reason: Perineum area Lactulose 20 gm PO TID@0700,1599,1999 Budesonide [Pulmicort] 0.5 mg INHALATION RT-BID@699,1999 Azelastine HCl [Optivar 0.05% Ophth Soln] 1 drop BOTH EYES DAILY PRN PRN Reason: redness Na Phos,M-B/Na Phos,Di-Ba [Fleet Adult] 133 ml RECTAL DAILY PRN PRN Reason: 4 days w/out BM bisacodyL [Dulcolax] 10 mg RECTAL DAILY PRN PRN Reason: 3 days w/out BM after M.O.M. Magnesium Hydroxide [Milk of Magnesia] 2,400 mg PO DAILY PRN PRN Reason: 2 days without BM Omeprazole [PriLOSEC] 20 mg PO HS@1999 Furosemide [Lasix] 20 mg PO BID@0600,1600 Ipratropium-Albuterol Nebulize [Duoneb 0.5 mg-3 mg/3 ml Soln] 3 ml INHALATION RT-QID PRN PRN Reason: Shortness Of Breath Chlorhexidine Gluconate [Peridex] 15 ml PO BID@699,1999 Calcium Carbonate [Calcium] 600 mg PO BID@699,1999 Acetaminophen Tab [Tylenol] 1,000 mg PO Q4-6H PRN PRN Reason: Pain polyethylene glycoL 3350 [Miralax] 17 gm PO DAILY polyethylene glycoL 3350 [Miralax] 17 gm PO Q2D@1700 Zonisamide [Zonegran] 100 mg PO TID@0700,1599,1999 Albuterol Sulfate [Ventolin HFA] 2 puff INHALATION RT-Q6H PRN PRN Reason: Wheezing Discontinued QUEtiapine [SEROquel] 400 mg PO HS@1999 Escitalopram [Lexapro] 30 mg PO DAILY@0700 Linaclotide [Linzess] 145 mcg PO AC-BRKFST@0600 ARIPiprazole [Abilify] 20 mg PO DAILY@0700 Discharge Medication List Acetaminophen Tab [Tylenol] 1,000 mg PO Q4-6H PRN 08/25/22 [History] Albuterol Sulfate [Ventolin HFA] 2 puff INHALATION RT-Q6H PRN 08/25/22 [History] Azelastine HCl [Optivar 0.05% Ophth Soln] 1 drop BOTH EYES DAILY PRN 08/25/22 [History] Budesonide [Pulmicort] 0.5 mg INHALATION RT-BID@07,199908/25/22 [History] Calcium Carbonate [Calcium] 600 mg PO BID@0700,199908/25/22 [History] Chlorhexidine Gluconate [Peridex] 15 ml PO BID@07,199908/25/22 [History] Docusate [Colace] 100 mg PO BID@0700,199908/25/22 [History] Furosemide [Lasix] 20 mg PO BID@0600,1600 08/25/22 [History] Ipratropium-Albuterol Nebulize [Duoneb 0.5 mg-3 mg/3 ml Soln] 3 ml INHALATION RT-QID PRN 08/25/22 [History] Lactulose 20 gm PO TID@0700,1600,199908/25/22 [History] Magnesium Hydroxide [Milk of Magnesia] 2,400 mg PO DAILY PRN 08/25/22 [History] Menthol-Zinc Oxide Oint [Calmoseptine Ointment] 1 applic TOPICAL DAILY PRN 08/25/22 [History] Metoprolol Tartrate [Lopressor] 25 mg PO BID@0700,199908/25/22 [History] Montelukast [Singulair] 10 mg PO HS@199908/25/22 [History] Na Phos,M-B/Na Phos,Di-Ba [Fleet Adult] 133 ml RECTAL DAILY PRN 08/25/22 [History] OXcarbazepine [Trileptal] 300 mg PO BID@0700,1600 08/25/22 [History] OXcarbazepine [Trileptal] 600 mg PO HS@199908/25/22 [History] Omeprazole [PriLOSEC] 20 mg PO HS@199908/25/22 [History] Potassium Chloride ER [K-Dur 20] 20 meq PO TID@0700,1600,199908/25/22 [History] Sennosides [Senokot] 8.6 mg PO HS@1999 PRN 08/25/22 [History] Zonisamide [Zonegran] 100 mg PO TID@0700,1600,199908/25/22 [History] bisacodyL [Dulcolax] 10 mg RECTAL DAILY PRN 08/25/22 [History] diazePAM [Valium] 5 mg PO TID@0700,1600,199908/25/22 [History] polyethylene glycoL 3350 [Miralax] 17 gm PO DAILY 08/25/22 [History] polyethylene glycoL 3350 [Miralax] 17 gm PO Q2D@1700 08/25/22 [History] cefUROXime axetiL [Ceftin] 500 mg PO BID 7 Days #14 tab 09/01/22 [Rx] fluPHENAZine [Prolixin 5MG] 2.5 mg PO TID 30 Days #45 tablet 09/01/22 [Rx] metroNIDAZOLE [Flagyl] 500 mg PO TID 7 Days #21 tab 09/01/22 [Rx] Follow up Appointment(s)/Referral(s): Prince Blandon MD [Primary Care Provider] - 1-2 days Activity/Diet/Wound Care/Special Instructions: Patient is returning to [facility] Activity as tolerated Continue medications as prescribed Continue to antibiotics for 1 week Continue with breathing treatments along with inhalers Highly recommend aspiration precautions with head of the bed elevated 30-45 at all times and supervision with meals Discharge Disposition: TRANSFER TO SNF/ECF
== END 2022-09-01 18:50 | DRG 871 ==
LOC: EC 05:13 → 4SSUR 08:08 → 2SICU 09:58
PROVIDERS: ADMIT Hospitalist; ATTEND Hospitalist
PROC: 5A09357 Assistance with Respiratory Ventilation, Less than 24 Consecutive Hours, Continuous Positive Airway Pressure (ICD-10-PCS; principal; 2022-08-25)
PROC: 05HB33Z Insertion of Infusion Device into Right Basilic Vein, Percutaneous Approach (ICD-10-PCS; 2022-08-27 15:20)
DX: A41.89 Other specified sepsis (principal); G93.41 Metabolic encephalopathy; J96.01 Acute respiratory failure with hypoxia; J69.0 Pneumonitis due to inhalation of food and vomit; J12.9 Viral pneumonia, unspecified; F73 Profound intellectual disabilities; J44.0 Chronic obstructive pulmonary disease with (acute) lower respiratory infection; J44.1 Chronic obstructive pulmonary disease with (acute) exacerbation; K56.7 Ileus, unspecified; R47.01 Aphasia; F13.239 Sedative, hypnotic or anxiolytic dependence with withdrawal, unspecified; D64.9 Anemia, unspecified; F41.9 Anxiety disorder, unspecified; G40.909 Epilepsy, unspecified, not intractable, without status epilepticus; G47.33 Obstructive sleep apnea (adult) (pediatric); G80.9 Cerebral palsy, unspecified; I10 Essential (primary) hypertension; K59.00 Constipation, unspecified; M81.0 Age-related osteoporosis without current pathological fracture; R32 Unspecified urinary incontinence; Z20.822 Contact with and (suspected) exposure to COVID-19; Z66 Do not resuscitate; Z78.1 Physical restraint status; Z79.899 Other long term (current) drug therapy; Z82.49 Family history of ischemic heart disease and other diseases of the circulatory system; Z87.440 Personal history of urinary (tract) infections; Z88.0 Allergy status to penicillin; Z71.3 Dietary counseling and surveillance; Z28.21 Immunization not carried out because of patient refusal; Z88.6 Allergy status to analgesic agent; Z88.1 Allergy status to other antibiotic agents
CPT/HCPCS: 36410; 36415; 36600; 71045; 71275; 76937; 80048; 80053; 80202; 81001; 82805; 83605; 83735; 84132; 84145; 84484; 85025; 85379; 85610; 85730; 86140; 87040; 87086; 87449; 87636; 93005; 94640; 94660; 96365; 99291